=== PATIENT | female | born 1995 | race Caucasian/White ===

== ENCOUNTER 2020-08-29 08:32 | Emergency (ER) | payer OTHER, SELFPAY ==
--- NOTE | 2020-08-29 08:47 | CT_ITS ---
EXAMINATION: CT HEAD WITHOUT CONTRAST CLINICAL INFORMATION: Syncope. Head injury. COMPARISON: None TECHNIQUE: Contiguous axial imaging was performed from the skull base to vertex without intravenous administration of contrast. This CT examination was performed using dose optimization techniques as appropriate, variously including the following: *Automated exposure control *Adjustment of mA and/or kV according to patient size (this includes techniques or standardized protocols for targeted exams where dose is matched to indication/reason for exam; i.e. extremities or head) *Use of iterative reconstruction technique DLP: 605 mGy-cm FINDINGS: There is no evidence of acute intracranial hemorrhage or territorial infarction. No abnormal mass effect or midline shift is seen. Rodríguez to white matter differentiation is well preserved. No extra-axial fluid collections are identified. The ventricles are normal in size. There is no abnormal attenuation within the brain parenchyma. The osseous structures and soft tissues are normal. The mastoid air cells and visualized portions of the paranasal sinuses are well aerated. IMPRESSION: No acute intracranial pathology.
--- NOTE | 2020-08-29 08:47 | XR_ITS ---
EXAMINATION: XR LUMBOSACRAL SPINE CLINICAL INFORMATION: Pain COMPARISON: None TECHNIQUE: Three views of the lumbosacral spine. FINDINGS: Normal alignment. Vertebral body heights and disc spaces are maintained. No evidence of acute fracture. SI joints intact. No suspicious soft tissue calcification. IMPRESSION: No evidence of acute osseous abnormality.
--- NOTE | 2020-08-29 08:47 | ED.SYNCOPE ---
HPI - Syncope General Chief Complaint: Syncope Stated Complaint: passed out at work,hit head,back pain Time Seen by Provider: 08/29/20 08:47 Source: patient Mode of arrival: ambulatory Limitations: no limitations History of Present Illness HPI narrative: 25 yo lilliana with syncope and prodrome - has had back pain since yesterday (chronic x 1 year) no IVDA, states her back hurts when the weather changes has not had it worked up, patient syncopized while at work and hit head then had n/v, no AC therapy, no family history no CP/SOB MD complaint: loss of consciousness, felt faint and collapsed Onset (ago): minute(s) -: second(s) Prodromal symptoms: vision changes and lightheaded Witnessed: Yes - by Bystander Context: standing up Injuries sustained associated with event: head Current symptoms: headache, nausea and other (vomiting afterwards) Treatments prior to arrival: none Related Data Previous Rx's Medication Instructions Recorded cyclobenzaprine 10 mg PO TID PRN #14 tab 08/29/20 ibuprofen 400 mg PO TID PRN #30 tab 08/29/20 Allergies Allergy/AdvReac Type Severity Reaction Status Date / Time latex [LATEX] Allergy Mild RASH Unverified 08/03/20 16:36 [facility] Allergy Unknown SEIZURES Uncoded 08/03/20 16:36 latex Allergy Unknown Uncoded 06/07/19 00:00 onion Allergy Unknown Uncoded 06/07/19 00:00 [facility] Allergy Unknown Uncoded 06/07/19 00:00 Review of Systems Review of Systems: Constitutional : No Fever, No Chills ENT/Mouth : No Ear Pain, No Hoarseness, No sore throat Eyes: No Eye Pain, No Swelling, No Redness, No Foreign Body Cardiovascular : No Chest Pain, No SOB Respiratory : No Cough, No Dyspnea Gastrointestinal : positive Nausea, positive Vomiting, No Diarrhea, No abdominal Pain Genitourinary : No Dysuria, No Hematuria Musculoskeletal : positive back pain, No Myalgias, No Joint Swelling Skin : No Skin lacerations, No rash Neuro : No Weakness, No Numbness, positive fainting, positive Loss of Consciousness, No Dizziness, positive Headache Psych : No Anxiety/Panic, No Depression Heme/Lymph: no easy bruising, no Lymphadenopathy Endocrine : No Polyuria, No Polydipsia All other systems reviewed and are negative PMFSH Past Medical History Attestation statement: The following information was validated with the patient. Medical History Anemia No known health problems Social History Social History (Updated 08/29/20 @ 09:10 by Kylah Mcdaniel DO) Alcohol intake: unknown Smoking Status: Never smoker Use of substances other than those prescribed or required for medical reasons: Unknown Advance Directives: No Advance Directives Information Provided: Yes Physical Exam Vital Signs: Vital Signs: Vital Signs Temp Pulse Resp Pulse Ox 08/29/20 09:19 18 08/29/20 09:18 99 08/29/20 08:54 98.2 F 100 18 99 Body Mass Index 24.2 Appearance: Alert. Oriented X3. No acute distress. Eyes: Pupils equal, round and reactive to light. ENT: Pharynx normal. small contusion occiput Neck: Normal inspection. Neck supple. no vert ttp CVS: Normal heart rate and rhythm. Pulses normal. Respiratory: No respiratory distress. Breath sounds normal. Abdomen: Soft and nontender. Back: no CVA ttp, has lower lumbar pain bilaterally Skin: Skin warm and dry. Normal skin color. Normal skin turgor. Extremities: No lower extremity edema. No calf ttp Neuro: Oriented X 3. No motor deficit. No sensory deficit. Course Course Course Narrative: CT head, lumbar spine negative, no acute findings, feels much better, stable for DC at this time, will refer to PCP MDM - Syncope MDM Narrative Medical decision making narrative: 35 yo female with no CP/SOB, felt weak and tunnel vision had syncopal event c/o head pain and vomiting afterwards, also c/o back pain x 1 year as well when the weather is bad and she has not had any xrays done, denies GIB or bleeding - no CP/SOB and no OCPs doubt ACS/PE at this time, labs, ortho VS, lumbar film, CT head given pain and vomiting, dispo per findings and workup Lab Data Result diagrams: 08/29/20 09:11 08/29/20 09:11 Labs: Lab Results 08/29/20 08/29/20 08/29/20 Range/Units 09:11 09:11 09:11 WBC 6.9 (4.8-10.8) X10*3/uL RBC 4.48 (4.20-5.50) X10*6/uL Hgb 13.2 (12.0-16.0) g/dl Hct 39.3 (37-47) % MCV 87.7 (80-98) fL MCH 29.5 (27.0-33.0) pg MCHC 33.6 (31.0-35.0) g/dl RDW 11.9 (11.0-16.0) % Plt Count 248 (160-400) X10*3/uL MPV 11.3 (9.4-12.3) fL Immature Gran % (Auto) 0.3 (0.0-0.4) % Neut % (Auto) 67.9 (45-73) % Lymph % (Auto) 21.6 (20-40) % [place] % (Auto) 6.1 (2-11) % Eos % (Auto) 3.7 (0-4) % Baso % (Auto) 0.4 (0-2) % Lymph # (Auto) 1.5 (1.2-4.9) X10*3/uL [place] # (Auto) 0.4 (0.1-1.2) X10*3/uL Eos # (Auto) 0.3 (0.0-0.4) X10*3/uL Baso # (Auto) 0.0 (0.0-0.2) X10*3/uL Abs Immat Gran (auto) 0.02 (0.00-0.03) X10*3/uL Absolute Neuts (auto) 4.7 (2.0-8.3) X10*3/uL Absolute Nucleated RBC 0.000 (0.0-0.012) X10*3/uL Nucleated RBC % (auto) 0.0 (0.0-0.2) /100WBC Hold Blue Top SEE NOTE Sodium (135-145) mmol/L Potassium (3.3-5.1) mmol/l Chloride (96-108) mmol/L Carbon Dioxide (22-29) mmol/L Anion Gap (12-20) BUN (9-16) mg/dL Creatinine (0.5-1.4) mg/dL Estim Creat Clear Calc Estimated GFR Random Glucose (60-115) mg/dL Calcium (8.4-10.2) mg/dL Magnesium (1.6-2.6) mg/dL Total Bilirubin (0.0-1.0) mg/dL Direct Bilirubin (0.0-0.5) mg/dL AST (5-31) U/L ALT (0-31) U/L Alkaline Phosphatase (39-117) U/L Troponin I High Sens (<3.5-17.0) ng/L Total Protein (6.5-8.0) g/dL Albumin (3.5-5.0) g/dL Lipase (8-78) U/L Urine Color YELLOW Urine Appearance CLOUDY Urine pH 5.5 (5.0-8.0) Ur Specific [place] >= 1.030 H (1.005-1.025) Urine Protein NEG (NEG-TRACE) MG/DL Urine Glucose (UA) NEG (NEG) MG/DL Urine Ketones NEG (NEG) MG/DL Urine Blood NEG (NEG) Urine Nitrite NEG (NEG) Ur Leukocyte Esterase 1+ H (NEG) Urine RBC 0 (0) /HPF Urine WBC 1-4 (0-4) /HPF Ur Squamous Epith Cells 3+ /LPF Urine Bacteria 2+ /LPF Urine Test NEGATIVE (NEGATIVE) 08/29/20 08/29/20 Range/Units 09:11 09:11 WBC (4.8-10.8) X10*3/uL RBC (4.20-5.50) X10*6/uL Hgb (12.0-16.0) g/dl Hct (37-47) % MCV (80-98) fL MCH (27.0-33.0) pg MCHC (31.0-35.0) g/dl RDW (11.0-16.0) % Plt Count (160-400) X10*3/uL MPV (9.4-12.3) fL Immature Gran % (Auto) (0.0-0.4) % Neut % (Auto) (45-73) % Lymph % (Auto) (20-40) % [place] % (Auto) (2-11) % Eos % (Auto) (0-4) % Baso % (Auto) (0-2) % Lymph # (Auto) (1.2-4.9) X10*3/uL [place] # (Auto) (0.1-1.2) X10*3/uL Eos # (Auto) (0.0-0.4) X10*3/uL Baso # (Auto) (0.0-0.2) X10*3/uL Abs Immat Gran (auto) (0.00-0.03) X10*3/uL Absolute Neuts (auto) (2.0-8.3) X10*3/uL Absolute Nucleated RBC (0.0-0.012) X10*3/uL Nucleated RBC % (auto) (0.0-0.2) /100WBC Hold Blue Top Sodium 136 (135-145) mmol/L Potassium 3.7 (3.3-5.1) mmol/l Chloride 106 (96-108) mmol/L Carbon Dioxide 21 L (22-29) mmol/L Anion Gap 13 (12-20) BUN 16 (9-16) mg/dL Creatinine 0.65 (0.5-1.4) mg/dL Estim Creat Clear Calc 106.4 Estimated GFR > 60 Random Glucose 96 (60-115) mg/dL Calcium 9.1 (8.4-10.2) mg/dL Magnesium 1.8 (1.6-2.6) mg/dL Total Bilirubin 0.4 (0.0-1.0) mg/dL Direct Bilirubin < 0.2 (0.0-0.5) mg/dL AST 14 (5-31) U/L ALT 11 (0-31) U/L Alkaline Phosphatase 58 (39-117) U/L Troponin I High Sens < 3.5 (<3.5-17.0) ng/L Total Protein 7.2 (6.5-8.0) g/dL Albumin 4.4 (3.5-5.0) g/dL Lipase 20 (8-78) U/L Urine Color Urine Appearance Urine pH (5.0-8.0) Ur Specific [place] (1.005-1.025) Urine Protein (NEG-TRACE) MG/DL Urine Glucose (UA) (NEG) MG/DL Urine Ketones (NEG) MG/DL Urine Blood (NEG) Urine Nitrite (NEG) Ur Leukocyte Esterase (NEG) Urine RBC (0) /HPF Urine WBC (0-4) /HPF Ur Squamous Epith Cells /LPF Urine Bacteria /LPF Urine Test (NEGATIVE) ECG Data Attestation: I personally reviewed and interpreted this ECG as follows: ECG interpretation date: 08/29/20 ECG interpretation time: 09:05 Interpretation: Rate: 92 Rhythm: NSR [place]: normal Normal P waves. Normal CAM. Normal QRS complex. ST T wave : normal qTC: normal prior studies: no acute ischemia The study has been interpreted contemporaneously by me. . Discharge Plan Discharge Clinical Impression: Syncope Qualifiers: Syncope type: unspecified Qualified Code(s): R55 - Syncope and collapse Lumbar strain Qualifiers: Encounter type: initial encounter Qualified Code(s): S39.012A - Strain of muscle, fascia and tendon of lower back, initial encounter Patient Disposition: Home, Self-Care Instructions: Syncope (ED), Acute Low Back Pain (ED) Prescriptions: New cyclobenzaprine 10 mg tablet 10 mg PO TID PRN (Reason: muscle spasm) Qty: 14 RF: 0 ibuprofen 400 mg tablet 400 mg PO TID PRN (Reason: pain) Qty: 30 RF: 0 Referrals: Po,Zuly Sneed MD [Primary Care Provider] - 2 days Stand Alone Forms: Work/School Release
--- NOTE | 2020-08-29 08:53 | ECG_ITS ---
Test Reason : SYNCOPE Blood Pressure : / mmHG Vent. Rate : 092 BPM Atrial Rate : 092 BPM P-R Int : 136 ms QRS Dur : 080 ms QT Int : 354 ms P-R-T Axes : 065 087 024 degrees QTc Int : 437 ms Normal sinus rhythm Nonspecific T wave abnormality Inferior leads Borderline ECG When compared with ECG of 09-JAN-2019 00:58, T wave inversion more evident in Inferior leads Referred By: Kylah Mcdaniel Electronically Signed By:REJI HARRISON MD
[2020-08-29 08:54] VITALS: PULSE 100; RESP 18; TEMP 36.8; O2SAT 99; BMI 24.2
[2020-08-29 09:16] LABS: MANUAL DIFF FLAG NO
[2020-08-29 09:18] VITALS: O2SAT 99
[2020-08-29 09:19] VITALS: RESP 18
[2020-08-29] MEDS: ondansetron HCL 4 MG/2 ML VIAL IVPUSH (09:25)
[2020-08-29] MEDS: Cyclobenzaprine HCl 10 MG TABLET PO (09:25)
[2020-08-29] MEDS: 0.9 % Sodium Chloride 1,000 ML 999 ML IVCONT (09:25)
[2020-08-29 09:26] LABS: Basophils Percent Auto 0.4 % (0-2); Eosinophils Absolute Auto 0.3 X10*3/uL (0.0-0.4); Eosinophils Percent Auto 3.7 % (0-4); Glucose Urine UA NEG (NEG); Hematocrit 39.3 % (37-47); Hemoglobin 13.2 g/dl (12.0-16.0); Imm Gran Abs Auto 0.02 X10*3/uL (0.00-0.03); Imm Gran Pct Auto 0.3 % (0.0-0.4); Leukocyte Esterase Urine 1+ (NEG); Lymphocytes Absolute Auto 1.5 X10*3/uL (1.2-4.9); Lymphocytes Percent Auto 21.6 % (20-40); Mean Corpuscular HGB Conc 33.6 g/dl (31.0-35.0); Mean Corpuscular Hemoglobin 29.5 pg (27.0-33.0); Mean Corpuscular Volume 87.7 fL (80-98); Mean Platelet Volume 11.3 fL (9.4-12.3); Monocytes Absolute Auto 0.4 X10*3/uL (0.1-1.2); Monocytes Percent Auto 6.1 % (2-11); Neutrophils Absolute Auto 4.7 X10*3/uL (2.0-8.3); Neutrophils Percent Auto 67.9 % (45-73); Nitrite Urine NEG (NEG); PH 5.5 (5.0-8.0); Platelet Count 248 X10*3/uL (160-400); Red Blood Count 4.48 X10*6/uL (4.20-5.50); Red Cell Distribution Width 11.9 % (11.0-16.0); Specific Gravity - Urine >= 1.030 (1.005-1.025); Urine Blood NEG (NEG); Urine Ketones NEG (NEG); Urine Protein NEG (NEG-TRACE); White Blood Count 6.9 X10*3/uL (4.8-10.8)
[2020-08-29 09:28] LABS: Appearance Urine CLOUDY; Color Urine YELLOW
[2020-08-29 09:36] LABS: RBC Urine 0 /HPF (0); Squamous Epithelial Cell Urine 3+ /LPF
[2020-08-29 09:37] LABS: Bacteria Urine 2+ /LPF
[2020-08-29 09:39] LABS: UPreg QC Valid YES; Urine Pregnancy NEGATIVE (NEGATIVE)
[2020-08-29 09:41] LABS: Alanine Aminotransferase 11 U/L (0-31); Albumin Level 4.4 g/dL (3.5-5.0); Alkaline Phosphatase 58 U/L (39-117); Anion Gap 13 (12-20); Aspartate Amino Transferase 14 U/L (5-31); Bilirubin Direct < 0.2 mg/dL (0.0-0.5); Bilirubin Total 0.4 mg/dL (0.0-1.0); Blood Urea Nitrogen 16 mg/dL (9-16); Calcium 9.1 mg/dL (8.4-10.2); Carbon Dioxide 21 mmol/L (22-29); Chloride 106 mmol/L (96-108); Creatinine Clr Calc Pharmacy 106.4; Estimated Glomerular Filt Rate > 60; Glucose Random 96 mg/dL (60-115); Lipase 20 U/L (8-78); Magnesium 1.8 mg/dL (1.6-2.6); Potassium 3.7 mmol/l (3.3-5.1); Sodium 136 mmol/L (135-145); Total Protein 7.2 g/dL (6.5-8.0)
[2020-08-29 09:47] LABS: Troponin-I High Sensitivity < 3.5 ng/L (<3.5-17.0)
[2020-08-29] MEDS: oxyCODONE HCl Immed Release 5 MG TABLET PO (10:13)
[2020-08-29 11:13] VITALS: BP 103/59; PULSE 85
[2020-08-29 11:14] VITALS: BP 107/64; BP 116/74; PULSE 102; PULSE 81
== END 2020-08-29 12:23 | disposition home or self-care (01) ==
PROVIDERS: Emergency Provider Emergency Medicine; PCP Internal Medicine
DX: R55 Syncope and collapse (principal); S39.012A Strain of muscle, fascia and tendon of lower back, initial encounter; W19.XXXA Unspecified fall, initial encounter; Y93.9 Activity, unspecified; Y92.9 Unspecified place or not applicable; Y99.0 Civilian activity done for income or pay
CPT/HCPCS: 36415; 70450; 72100; 80048; 80076; 81001; 81025; 83690; 83735; 84484; 85025; 87086; 93005; 96361; 96374; 99284; 99285; J2405

== ENCOUNTER 2020-10-27 11:27 | Outpatient (REF) | payer OTHER, SELFPAY ==
[2020-10-27 13:01] LABS: MANUAL DIFF FLAG NO
[2020-10-27 13:29] LABS: Glucose Urine UA NEG (NEG); Leukocyte Esterase Urine NEG (NEG); Nitrite Urine NEG (NEG); Urine Blood NEG (NEG); Urine Ketones NEG (NEG); Urine Protein NEG (NEG-TRACE)
[2020-10-27 13:36] LABS: Basophils Absolute Auto 0.1 X10*3/uL (0.0-0.2); Basophils Percent Auto 0.7 % (0-2); Eosinophils Absolute Auto 0.3 X10*3/uL (0.0-0.4); Hematocrit 40.3 % (37-47); Hemoglobin 13.3 g/dl (12.0-16.0); Imm Gran Abs Auto 0.03 X10*3/uL (0.00-0.03); Imm Gran Pct Auto 0.4 % (0.0-0.4); Immature Retic Fraction 14.2 % (3.0-15.9); Lymphocytes Absolute Auto 2.1 X10*3/uL (1.2-4.9); Lymphocytes Percent Auto 31.6 % (20-40); Mean Corpuscular Hemoglobin 29.2 pg (27.0-33.0); Mean Corpuscular Volume 88.6 fL (80-98); Mean Platelet Volume 11.2 fL (9.4-12.3); Monocytes Absolute Auto 0.4 X10*3/uL (0.1-1.2); Monocytes Percent Auto 6.2 % (2-11); Neutrophils Absolute Auto 3.9 X10*3/uL (2.0-8.3); Neutrophils Percent Auto 57.1 % (45-73); Platelet Count 294 X10*3/uL (160-400); Red Blood Count 4.55 X10*6/uL (4.20-5.50); Red Cell Distribution Width 12.2 % (11.0-16.0); Retic HGB Equivalent 30.7 pg (30.0-35.0); Reticulocyte Percent 1.5 % (0.5-1.8); Reticulocytes Absolute 0.067 X10*6/uL (0.026-0.095); White Blood Count 6.8 X10*3/uL (4.8-10.8)
[2020-10-27 13:37] LABS: Appearance Urine CLEAR; Color Urine YELLOW
[2020-10-27 13:37] LABS: Alanine Aminotransferase 11 U/L (0-31); Albumin Level 4.4 g/dL (3.5-5.0); Alkaline Phosphatase 58 U/L (39-117); Anion Gap 13 (12-20); Aspartate Amino Transferase 13 U/L (5-31); Bilirubin Total 0.4 mg/dL (0.0-1.0); Blood Urea Nitrogen 13 mg/dL (9-16); Calcium 8.7 mg/dL (8.4-10.2); Carbon Dioxide 24 mmol/L (22-29); Chloride 104 mmol/L (96-108); Estimated Glomerular Filt Rate > 60; Glucose Random 80 mg/dL (60-115); Iron 103 mcg/dL (30-160); Percent Iron Saturation 23 % (15-50); Potassium 3.8 mmol/l (3.3-5.1); Sodium 137 mmol/L (135-145); Total Iron Binding Capacity 453 mcg/dL (228-428); Total Protein 7.2 g/dL (6.5-8.0); Unsaturated Iron Binding 350 ug/dL
[2020-10-27 13:48] LABS: Ferritin 6 ng/mL (10-122); Free T4 (Free Thyroxine) 0.91 ng/dL (0.71-1.85); Thyroid Stimulating Hormone 1.22 uIU/mL (0.32-4.0)
[2020-10-27 14:01] LABS: Folate 11.2 ng/mL (> or = 4.0); Vitamin B12 390 pg/mL (200-900)
[2020-10-27 14:27] LABS: Bacteria Urine TRACE /LPF; RBC Urine 0 /HPF (0); Squamous Epithelial Cell Urine TRACE /LPF; WBC Urine 0 /HPF (0-4)
== END 2020-10-27 11:28 | disposition home or self-care (01) ==
LOC: HO.LAB 11:27
PROVIDERS: PCP Internal Medicine; Referring Provider Nurse Practitioner Family; Visit Provider Internal Medicine
DX: D64.9 Anemia, unspecified (principal); R55 Syncope and collapse
CPT/HCPCS: 36415; 80053; 81001; 82607; 82728; 82746; 83540; 84439; 84443; 85025; 85045

== ENCOUNTER 2020-11-27 11:11 | Outpatient (REF) | payer OTHER, SELFPAY | END 2020-11-27 11:12 | disposition home or self-care (01) | LOC: HO.LAB 11:11 | PROVIDERS: Visit Provider Internal Medicine | DX: Z20.822 Contact with and (suspected) exposure to COVID-19 (principal) | CPT/HCPCS: 36415; C9803; U0003 ==

== ENCOUNTER 2021-06-17 12:02 | Emergency (ER) | payer OTHER, MEDICAID, SELFPAY ==
[2021-06-17 12:23] VITALS: BP 136/79; PULSE 91; RESP 15; TEMP 36.1; O2SAT 99; BMI 23.3
--- NOTE | 2021-06-17 13:27 | ED.EAR ---
HPI - Ear Problem General Chief complaint: Ear Problems Stated complaint: ear infection Time Seen by Provider: 06/17/21 13:09 Source: patient Mode of arrival: ambulatory Limitations: no limitations History of Present Illness HPI Narrative: Patient presents to ED for right ear pain for 3 days after cleaning ear with ear swab. Patient denies any pus discharge or bleeding from the ear. Patient was seen yesterday at urgent care that right ear irrigated. Patient states pain is worse. Related Data Previous Rx's Medication Instructions Recorded citalopram 10 mg tablet 15 mg PO DAILY 90 Days #135 tab 05/01/21 ibuprofen 600 mg tablet 600 mg PO TID PRN #60 tab 05/01/21 naproxen 500 mg tablet 500 mg PO BID PRN #20 tab 06/17/21 [id number] 3.3 4 drp OTIC (EAR) LEFT QID 7 Days 06/17/21 mg-3 mg-10 mg-0.5 mg/mL ear #10 ml drops,susp (Cortisporin-TC) Allergies Allergy/AdvReac Type Severity Reaction Status Date / Time latex [LATEX] Allergy Mild RASH Verified 05/01/21 16:21 [facility] Allergy Unknown SEIZURES Uncoded 10/02/20 11:08 latex Allergy Unknown d Uncoded 10/02/20 11:08 onion Allergy Unknown f Uncoded 10/02/20 11:08 [facility] Allergy Unknown p Uncoded 10/02/20 11:08 Review of Systems Review of Systems: Yes unobtainable due to endotracheal tube and Unobtainable due to mental status Constitutional: Constitutional: Reports as per HPI and Reports no additional constitutional complaints Eyes: Eyes: Reports as per HPI and Reports no additional eye complaints ENT: Reports system reviewed and no additional complaints, except as documented and Reports otalgia Cardiovascular: Cardiovascular: Reports as per HPI and Reports no additional cardiovascular complaints Respiratory: Respiratory: Reports as per HPI and Reports no additional respiratory complaints Gastrointestinal: Gastrointestinal: Reports as per HPI and Reports no additional gastrointestinal complaints Genitourinary: Genitourinary: Reports no additional female genitourinary complaints and Reports as per HPI Musculoskeletal: Musculoskeletal: Reports no additional musculoskeletal complaints and Reports as per HPI Integumentary/Breasts: Skin/Breast: Reports system reviewed and no additional complaints, except as docu and Reports as per HPI Neurologic: Reports system reviewed and no additional complaints, except as documented and Reports as per HPI Psychiatric: Psychiatric: Reports no additional psychiatric complaints and Reports as per HPI [facility] Past Medical History Medical History (Updated 06/17/21 @ 13:34 by LYLY Lorenzana) Anemia Anxiety Lumbar back pain Tourettes syndrome Surgical History No pertinent past surgical history Family History Family History (Updated 09/28/20 @ 07:22 by LAISHA Moody) Father No problems noted. Mother No problems noted. Social History Social History (Updated 05/01/21 @ 16:24 by [employer]) Household Members: Family Housing: House Alcohol intake: never Patient Tobacco Use Status: Never used Tobacco Advance Directives: No Advance Directives Information Provided: Yes Patient : No service: No Current occupational status: employed Physical Exam Vital Signs: Vital Signs: Last Vital Signs Temp 97.0 F 06/17/21 12:23 Pulse 91 06/17/21 12:23 Resp 15 06/17/21 12:23 BP 136/79 06/17/21 12:23 Pulse Ox 99 06/17/21 12:23 Body Mass Index 23.3 Const: General: cooperative, healthy appearing, comfortable, no acute distress, well developed, alert, awake and Physically active HENMT: Head: Yes normal to inspection, Yes No palpable skull fracture present, Yes normocephalic and Yes atraumatic Ears: hearing grossly normal bilaterally, external ears normal, mastoids normal, no periauricular adenopathy, Abnormal EAC present (Ear canal swollen) and unable to visualize TM Eyes: General: appearance normal, both eyes and all related structures Neck: Neck: Yes normal visual inspection, Yes full ROM, Yes no lymphadenopathy and Yes no meningeal signs Chest: Chest palpation & inspection: normal inspection of the chest and normal palpation of entire chest wall Resp: Effort & Inspection: normal respiratory effort and able to speak in complete sentences Auscultation: clear to auscultation bilaterally Cardio: Jugular venous distension: no JVD Heart sounds: S1 normal heart sound present and S2 normal heart sound present GI: Inspection: Yes normal to inspection and No abdominal wall ecchymosis Palpation (GI): Soft to palpation, not firm, nontender, no guarding and not rigid : General: No CVA tenderness and Yes no CVA tenderness Back/Spine/Pelvis: Back: no CVA tenderness, No CVA tenderness and No back tenderness Skin: General skin exam: no rashes or lesions noted and elasticity normal Neuro: General: no meningeal signs Extrem: General: Yes normal to inspection and Yes full ROM Course Course Course Narrative: Ear evaluated. Reevaluation(s) Reevaluation #1: Ear exam shows otitis externa. Will discharge with ear drops. Time: 13:32 MDM - Ear MDM Narrative Medical decision making narrative: Otitis externa Discharge Plan Discharge Clinical Impression: Otitis externa Patient Disposition: Home, Self-Care Instructions: Otitis Externa (ED) Additional Instructions: Ear exam shows otitis externa. He will need ear drops with antibiotics. Return to the ED for worsening ear pain, swelling or redness behind on front of ear, headache, dizziness, discharge from the ear, chest pain, shortness of breath, fever, chills, or any other concerning symptoms. Prescriptions: New Cortisporin-TC 3.3-3-10-0.5 mg/mL drops,suspension 4 drp otic (ear) left QID 7 Days Qty: 10 RF: 0 naproxen 500 mg tablet 500 mg PO BID PRN (Reason: pain) Qty: 20 RF: 0 No Action ibuprofen 600 mg tablet 600 mg PO TID PRN (Reason: pain) Qty: 60 RF: 0 citalopram 10 mg tablet 15 mg PO DAILY 90 Days Qty: 135 RF: 0 Referrals: Beny Charlton [Physician] - 2 days (Otitis externa) Po,Zuly Sneed MD [Primary Care Provider] - 2 days (Otitis externa) Interventions: ED Discharge Assessment Last Done: 06/17/21 13:43 Discharge Date/Time: 06/17/21 13:44 Print Language: Tanzanian
== END 2021-06-17 13:44 | disposition home or self-care (01) ==
PROVIDERS: Emergency Provider Student in an Organized Health Care Education/Training Program; PCP Internal Medicine
DX: H60.91 Unspecified otitis externa, right ear (principal); H92.01 Otalgia, right ear; Z79.899 Other long term (current) drug therapy
CPT/HCPCS: 99283

== ENCOUNTER 2021-08-13 12:23 | Emergency (ER) | payer OTHER, MEDICAID, SELFPAY ==
--- NOTE | 2021-08-13 14:25 | ED.URI ---
HPI - URI/Sore Throat General Chief Complaint: Upper Respiratory Symptoms Stated Complaint: flu like Time Seen by Provider: 08/13/21 14:26 Source: patient Mode of arrival: ambulatory Limitations: no limitations History of Present Illness HPI Narrative: 26 yo female pmhx of anxiety presents and recurrent ear infections as a child presents to the ED with sore throat, left ear pain, body aches and malaise for one week. She states it has been progresivly worsening over the past week. She does report an URi with ottitis externa about 2 weeks ago. She is not vaccinated against covid 19. She denies SOB, CP, fevers, chills,N/V/D, absominal pain. She is able to eat and drink without difficulty. She is not a smoker MD elicited complaint: sore throat and other (left ear pain ) Pertinent past history: other (recurrent ear infections as a child ) Onset (ago): week(s) (1) Consistency: constant Severity: moderate Able to tolerate fluids by mouth: Yes Exacerbating factors: nothing Relieving factors: nothing Associated symptoms: myalgias, sore throat and cough Treatments prior to arrival: none Related Data Previous Rx's Medication Instructions Recorded ibuprofen 600 mg tablet 600 mg PO TID PRN #60 tab 05/01/21 naproxen 500 mg tablet 500 mg PO BID PRN #20 tab 06/17/21 [id number] 3.3 4 drp OTIC (EAR) LEFT QID 7 Days 06/17/21 mg-3 mg-10 mg-0.5 mg/mL ear #10 ml drops,susp (Cortisporin-TC) citalopram 10 mg tablet 15 mg PO DAILY 90 Days #135 tab 07/16/21 ofloxacin 0.3 % ear drops 10 drp OTIC (EAR) LEFT DAILY 7 08/13/21 Days #10 ml Allergies Allergy/AdvReac Type Severity Reaction Status Date / Time latex [LATEX] Allergy Mild RASH Verified 05/01/21 16:21 [facility] Allergy Unknown SEIZURES Uncoded 10/02/20 11:08 latex Allergy Unknown d Uncoded 10/02/20 11:08 onion Allergy Unknown f Uncoded 10/02/20 11:08 [facility] [employer] [facility] Allergy Unknown p Uncoded 11/16/20 11:08 Review of Systems Review of Systems: Constitutional : No Fever, No Chills, + malaise ENT/Mouth : No oral swelling, No Hoarseness, No Swallowing Difficulty, + left sided ear pain, + sore throat Eyes: No Eye Pain, No Swelling, No Redness Cardiovascular : No Chest Pain, No SOB Respiratory : No Cough, No Sputum, No Wheezing, No Smoke Exposure, No Dyspnea Gastrointestinal : No Nausea, No Vomiting, No Diarrhea, No abdominal Pain Genitourinary : No Dysuria, No Urinary Frequency, No Hematuria Musculoskeletal : No joint pain, No Myalgias, No Joint Swelling Skin : No Skin Lesions, positive rash Neuro : No Weakness, No Numbness, No Headache All other systems reviewed and are negative [facility] Past Medical History Attestation statement: The following information was validated with the patient. Source: old records reviewed Medical History Anemia Anxiety Lumbar back pain Tourettes syndrome Surgical History No pertinent past surgical history Family History Family History (Updated 09/28/20 @ 07:22 by Анна Rosenthal [facility]) Father No problems noted. Mother No problems noted. Social History Social History Household Members: Family Housing: House Alcohol intake: never Patient Tobacco Use Status: Never used Tobacco Advance Directives: No Advance Directives Information Provided: No Patient : No service: No Current occupational status: employed Physical Exam Vital Signs: Vital Signs: Last Vital Signs Temp 97.5 F 08/13/21 14:28 Pulse 85 08/13/21 14:28 Resp 16 08/13/21 14:28 BP 122/67 08/13/21 14:28 Pulse Ox 100 08/13/21 14:28 Body Mass Index 23.3 Appearance: Alert. Oriented X3. No acute distress. Eyes: Pupils equal, round and reactive to light. ENT: Pharynx normal. Bilateral ear canals free of erythema. Tympanic membranes with bright cone of light, all landmarks present. Old scarring is noted to the left ear drum Neck: Normal inspection. Neck supple. CVS: Normal heart rate and rhythm. Pulses normal. Respiratory: No respiratory distress. Breath sounds normal. Abdomen: Soft and nontender. Skin: Skin warm and dry. Normal skin color. Normal skin turgor. Extremities: No lower extremity edema. No calf ttp Neuro: Oriented X 3. No motor deficit. No sensory deficit. MDM - URI/Sore Throat MDM Narrative Medical decision making narrative: 26-year-old female presenting with sore throat, left-sided ear pain, body aches and malaise for 1 week that progressively worsening. She reports an URI and ottitis externa in the right ear a few weeks ago. She is not vaccinated. She denies fevers, chills, shortness of breath, chest pain, abdominal pain Lab Data Labs: Lab Results 08/13/21 Range/Units 14:39 COVID-19 ([facility]ARON) Positive A (Negative) COVID-19 Clin Com See Note Discharge Plan Discharge Clinical Impression: Acute sore throat, Ear pain, left, COVID-19 Patient Disposition: Home, Self-Care Instructions: Earache (ED), COVID-19 (Coronavirus Disease 2019) (ED) Additional Instructions: Ear drops were sent to your pharmacy, taken as prescribed You tested for COVID 19 today Follow-up with your PCP. Return to the emergency department with new or worsening symptoms return to ED for any worsening symptoms or concerns if you are so short of breath you cannot walk to your bathroom please come back YOU ARE POSITIVE FOR COVID TODAY Prescriptions: New ofloxacin 0.3 % drops 10 drp otic (ear) left DAILY 7 Days Qty: 10 RF: 0 No Action citalopram 10 mg tablet 15 mg PO DAILY 90 Days Qty: 135 RF: 2 Cortisporin-TC 3.3-3-10-0.5 mg/mL drops,suspension 4 drp otic (ear) left QID 7 Days Qty: 10 RF: 0 naproxen 500 mg tablet 500 mg PO BID PRN (Reason: pain) Qty: 20 RF: 0 ibuprofen 600 mg tablet 600 mg PO TID PRN (Reason: pain) Qty: 60 RF: 0 Referrals: Po,Zuly Sneed MD [Primary Care Provider] - 2 days Stand Alone Forms: Work/School Release
[2021-08-13 14:28] VITALS: BP 122/67; PULSE 85; RESP 16; TEMP 36.4; O2SAT 100; BMI 23.3
[2021-08-13 14:59] LABS: COVID-19 Test Positive (Negative); IDNOW Serial# 9DD0AD1C
== END 2021-08-13 15:23 | disposition home or self-care (01) ==
LOC: HO.ED 14:59
PROVIDERS: Emergency Provider Emergency Medicine; PCP Internal Medicine
DX: U07.1 COVID-19 (principal); H92.02 Otalgia, left ear; M79.10 Myalgia, unspecified site; R05 Cough
CPT/HCPCS: 36415; 87635; 99282; 99283

== ENCOUNTER 2021-08-28 11:57 | Emergency (ER) | payer OTHER, MEDICAID, SELFPAY ==
--- NOTE | ~2021-08-28 | CT_ITS ---
EXAMINATION: CT ABDOMEN AND PELVIS WITHOUT CONTRAST CLINICAL INFORMATION: Lower abdominal pain COMPARISON: None TECHNIQUE: Multidetector volumetric imaging was performed from the superior aspect of the liver through the pubic symphysis. Sagittal and coronal reformatted images were obtained on the technologist's workstation. This CT examination was performed using dose optimization techniques as appropriate, variously including the following: *Automated exposure control *Adjustment of mA and/or kV according to patient size (this includes techniques or standardized protocols for targeted exams where dose is matched to indication/reason for exam; i.e. extremities or head) *Use of iterative reconstruction technique DLP: 395 mGy-cm FINDINGS: LUNG BASES: The visualized lung bases are unremarkable. There is a small hiatal hernia. LIVER, GALLBLADDER, AND BILIARY TREE: The liver is normal in size, shape, and attenuation. No focal hepatic lesion or biliary ductal dilatation is present. The gallbladder is unremarkable with no evidence of radiopaque gallstones, gallbladder wall thickening, or obvious pericholecystic inflammatory changes. PANCREAS: Unremarkable. SPLEEN: Unremarkable. ADRENAL GLANDS: Unremarkable. KIDNEYS AND URETERS: The kidneys are normal in size, shape, and attenuation. No hydronephrosis, hydroureter, or calculi seen. No perinephric stranding. BLADDER: Unremarkable. GASTROINTESTINAL TRACT: There is scattered stool seen throughout the colon without any significant distention. The small bowel loops are normal caliber. Appendix is normal caliber. No inflammatory process seen in the abdomen. ABDOMINAL WALL: A small lumbar canal hernia containing fat is noted. LYMPH NODES: Normal. VASCULAR: Unremarkable. PELVIC VISCERA: The uterus is retroverted. There is no adnexal mass or free fluid. OSSEOUS STRUCTURES: Unremarkable. CT/CT abdomen pelvis wo con IMPRESSION: No acute intra-abdominal process seen. Retroverted uterus. No adnexal mass or free fluid seen.
--- NOTE | ~2021-08-28 | US_ITS ---
EXAMINATION: US PELVIS CLINICAL INFORMATION: Suprapubic lower quadrant pain for approximately one week, worse with urination. COMPARISON: Pelvic ultrasound 10/05/2019, 09/08/2019 TECHNIQUE: Ultrasound of the pelvis is performed using both transabdominal and transvaginal transducers along with color and spectral Doppler. Transvaginal imaging is performed due to inadequate visualization transabdominally. FINDINGS: Uterus: The uterus is retroverted and measures 7.9 x 4.9 x 5.5 cm. Volume 91 mL. The double wall endometrial thickness is within limits of normal at 14 mm. There is trace fluid in the endocervical canal. No fluid in the uterine cavity. There is an arcuate endometrial cavity shape as noted previously. No fundal indentation. The uterus is smooth in contour and has normal myometrial echogenicity. No visible fibroid. Adnexa: Both ovaries are visualized. There is normal color flow to the adnexa and normal bilateral low resistance waveforms. There is no ovarian torsion. There is no pelvic ascites or fluid collection. Right ovary measures 2.6 x 2.1 x 2.4 cm. Volume 6.7 mL. No right adnexal mass. Left ovary measures 4.6 x 2.1 x 2.6 cm. Volume 13.2 mL. There is a dominant anterior ovarian follicle measuring 2.4 x 1.8 x 2.0 cm. No left adnexal mass. US/US pelvic ovarian doppler IMPRESSION: 1. No ovarian torsion, adnexal mass, or pelvic ascites 2. Retroverted uterus normal in size.
--- NOTE | ~2021-08-28 | US_ITS ---
EXAMINATION: US PELVIS CLINICAL INFORMATION: Suprapubic lower quadrant pain for approximately one week, worse with urination. COMPARISON: Pelvic ultrasound 10/05/2019, 09/08/2019 TECHNIQUE: Ultrasound of the pelvis is performed using both transabdominal and transvaginal transducers along with color and spectral Doppler. Transvaginal imaging is performed due to inadequate visualization transabdominally. FINDINGS: Uterus: The uterus is retroverted and measures 7.9 x 4.9 x 5.5 cm. Volume 91 mL. The double wall endometrial thickness is within limits of normal at 14 mm. There is trace fluid in the endocervical canal. No fluid in the uterine cavity. There is an arcuate endometrial cavity shape as noted previously. No fundal indentation. The uterus is smooth in contour and has normal myometrial echogenicity. No visible fibroid. Adnexa: Both ovaries are visualized. There is normal color flow to the adnexa and normal bilateral low resistance waveforms. There is no ovarian torsion. There is no pelvic ascites or fluid collection. Right ovary measures 2.6 x 2.1 x 2.4 cm. Volume 6.7 mL. No right adnexal mass. Left ovary measures 4.6 x 2.1 x 2.6 cm. Volume 13.2 mL. There is a dominant anterior ovarian follicle measuring 2.4 x 1.8 x 2.0 cm. No left adnexal mass. US/US pelvic and transvaginal IMPRESSION: 1. No ovarian torsion, adnexal mass, or pelvic ascites 2. Retroverted uterus normal in size.
[2021-08-28 12:59] VITALS: BP 109/70; PULSE 88; RESP 17; TEMP 36.7; O2SAT 100; BMI 32.5
[2021-08-28 14:09] LABS: Appearance Urine CLEAR; Color Urine YELLOW; Glucose Urine UA NEG (NEG); Leukocyte Esterase Urine NEG (NEG); Nitrite Urine NEG (NEG); PH 7.5 (5.0-8.0); Urine Blood NEG (NEG); Urine Ketones NEG (NEG); Urine Protein NEG (NEG-TRACE)
[2021-08-28 14:35] LABS: UPreg QC Valid YES; Urine Pregnancy NEGATIVE (NEGATIVE)
--- NOTE | 2021-08-28 16:35 | ED.ABDPAIN ---
HPI - Abdominal Pain General Chief Complaint: General Medical Stated Complaint: covid+ ?uti Time Seen by Provider: 08/28/21 14:13 Source: patient Mode of arrival: ambulatory Limitations: no limitations History of Present Illness HPI narrative: 26-year-old female with a past medical history of Tourette syndrome, anxiety, anemia and who was recently diagnosed with COVID 19 on 08/13/2021 presenting to the ED with complaints of pressure sensation in the bladder aspect and she believes she might have a UTI. She reports that she has similar symptoms approximately 1-2 years ago and she was diagnosed with UTI and given antibiotics and her symptoms resolved. She denies any thoughts of STDs. She also reports that she still has generalized fatigue, intermittent headaches, nasal congestion, sore throat, dry cough and no taste and she does not believe that she can go back to work due to she is still feeling bad from her COVID. She denies any measured fevers, dizziness, neck pain/stiffness, trouble swallowing or breathing, chest pain or shortness of breath, dyspnea on exertion, orthopnea, radiation of the abdominal pain, nausea/vomiting/diarrhea, dysuria, hematuria, abnormal vaginal discharge, constipation, rashes, recent travel or any other symptoms complaints or concerns at this time. MD elicited complaint: abdominal pain Pertinent past history: past UTI Onset (ago): day(s) (For the past few days worse today) Pain Consistency: constant Location: suprapubic Severity: mild Quality: aching Radiation: none Migration to: no migration Exacerbating factors: other (Urinating) Relieving factors: nothing Associated symptoms: other (See above) Related Data Previous Rx's Medication Instructions Recorded ibuprofen 600 mg tablet 600 mg PO TID PRN #60 tab 05/01/21 naproxen 500 mg tablet 500 mg PO BID PRN #20 tab 06/17/21 [id number] 3.3 4 drp OTIC (EAR) LEFT QID 7 Days 06/17/21 mg-3 mg-10 mg-0.5 mg/mL ear #10 ml drops,susp (Cortisporin-TC) citalopram 10 mg tablet 15 mg PO DAILY 90 Days #135 tab 07/16/21 ofloxacin 0.3 % ear drops 10 drp OTIC (EAR) LEFT DAILY 7 08/13/21 Days #10 ml amoxicillin 875 mg-potassium 1 tab PO BID 10 Days #20 tab 08/28/21 clavulanate 125 mg tablet (Augmentin) cyclobenzaprine 10 mg tablet 10 mg PO Q8H PRN #14 tab 08/28/21 ofloxacin 0.3 % ear drops 10 drp OTIC (EARS) BID 14 Days #10 08/28/21 ml Allergies Allergy/AdvReac Type Severity Reaction Status Date / Time latex [LATEX] Allergy Mild RASH Verified [facility]/01[facility]21 16:[facility]ergy Unknown SEIZURES Uncoded 10/02/20 11:08 latex Allergy Unknown d Uncoded 10/02/20 11:08 onion Allergy Unknown f Uncoded 10/02/20 11:08 [employer] [facility] Allergy Unknown p Uncoded 10/02/20 11:08 Review of Systems Review of Systems Constitutional : Positive no taste, Positive fatigue/malaise, No Weight loss, No Fever, No Chills, No Night Sweats ENT/Mouth: Positive sore throat, No ear pain, No Difficulty swallowing Cardiovascular : No Chest Pain, No SOB, No Dyspnea on Exertion, No Orthopnea, NoEdema, No Palpitations Respiratory : Positive Cough, No Sputum, No Wheezing, No Dyspnea Gastrointestinal : Positive lower abdominal pressure, No Nausea, No Vomiting, No abdominal pain, No Diarrhea, No blood streaked emesis, No coffee-ground emesis, No gross hematemesis, No blood streak stool, No gross hematochezia, No Melena Genitourinary : No irregular bleeding, No Dysuria, No Urinary Frequency, No Hematuria,No Urinary Incontinence, No Urgency, No Flank Pain Musculoskeletal : Positive myalgias, No joint pain, No Joint Swelling Skin : No Skin Lesions, No rash Neuro : Positive headache, No Weakness, No Numbness, No Paresthesias, No Loss of Consciousness, No Dizziness Psych : No Social Issues, Heme/Lymph: No Bruising, No Bleeding,No Lymphadenopathy Endocrine : No Polyuria, No Polydipsia, No Temperature Intolerance Yes all other systems are reviewed and are negative Physical Exam Vital Signs: Vital Signs: Last Vital Signs Temp 98.1 F 08/28/21 12:59 Pulse 88 08/28/21 12:59 Resp 17 08/28/21 12:59 BP 109/70 08/28/21 12:59 Pulse Ox 100 08/28/21 12:59 Body Mass Index 32.5 vital signs have been reviewed as normal and appeared to be correct. Blood pressure normal. Heart rate normal. Respiration rate normal. Temperature normal. Oxygen saturation normal. Appearance: Alert. Oriented X3. No acute distress. Head: Normal external exam. Normocephalic. Eyes: PERRLA. EOMI. Conjunctiva and sclera normal. Eyelids normal. ENT: Pharynx normal. Uvula midline. Moist mucous membranes. No trismus noted. No drooling noted. No muffled voice noted. Neck: Normal inspection. Neck supple. FROM. No adenopathy. No meningeal signs. CVS: Normal heart rate and rhythm. Heart sound normal. No murmurs noted. Pulses normal throughout. Respiratory: No respiratory distress. Painless inspiration. Breath sounds normal. No wheezes/rales/rhonchi noted. Chest nontender. No accessory muscle usage noted or decreased air movement noted. Abdomen: Soft and mild suprapubic tenderness. Nondistended. No guarding. No rigidity. Bowel sounds normal in all 4 quadrants. No distention noted. No organomegaly noted. No visible injury noted. No rebound tenderness. Negative Rovsing sign. Negative obturator's sign. Negative psoas sign. Negative Sims sign. Back: No CVA tenderness. Full range of motion noted. Skin: Skin warm and dry. Normal skin color. Normal skin turgor. No rashes/lesions/lacerations noted. Extremities: Extremities exhibit normal range of motion. Extremities nontender. Neuro: Oriented X 3. No motor deficit. No sensory deficit. Reflexes normal. Normal steady gait. Course Course Course Narrative: 14:30 - 26-year-old female with a past medical history of Tourette syndrome, anxiety, anemia and who was recently diagnosed with COVID 19 on 08/13/2021 presenting to the ED with complaints of pressure sensation in the bladder aspect and she believes she might have a UTI. She reports that she has similar symptoms approximately 1-2 years ago and she was diagnosed with UTI and given antibiotics and her symptoms resolved. She denies any thoughts of STDs. She also reports that she still has generalized fatigue, intermittent headaches, nasal congestion, sore throat, dry cough and no taste and she does not believe that she can go back to work due to she is still feeling bad from her COVID. Plan: UA obtained in triage and negative for UTI. U hCG negative for . Therefore at this time will order an ultrasound of pelvic/ovarian/transvaginal then re-evaluate. Reevaluation(s) Reevaluation #1: - pelvic ultrasound negative for any acute processes only revealed chronic changes. - therefore I explained to the patient we should have a gonorrhea chlamydia urine to rule out STD. - will also obtain a CT scan abdomen and pelvis without IV contrast evaluate for any other acute processes if negative will DC home with instructions to follow up with primary care provider. Patient understands agrees with this plan. Time: 16:00 Reevaluation #2: - CT scan abdomen pelvis without IV contrast negative for any acute processes. Will DC home with symptomatic treatment instructions return if any new or worsening symptoms to follow-up with primary care provider. Patient understands agrees with this plan. Time: 17:15 [facility] - Abdominal Pain Medical Records Attestation: I reviewed the patient's medical records. Lab Data Attestation: I reviewed the patient's lab results. Labs: Lab Results 08/28/21 08/28/21 Range/Units 14:01 14:01 Urine Color YELLOW Urine Appearance CLEAR Urine pH 7.5 (5.0-8.0) Ur Specific [place] 1.010 (1.005-1.025) Urine Protein NEG (NEG-TRACE) MG/DL Urine Glucose (UA) NEG (NEG) MG/DL Urine Ketones NEG (NEG) MG/DL Urine Blood NEG (NEG) Urine Nitrite NEG (NEG) Ur Leukocyte Esterase NEG (NEG) Urine Test NEGATIVE (NEGATIVE) Imaging Data Pelvic/transvaginal/Doppler ultrasound: Attestation: I personally reviewed and interpreted this imaging study as follows: Radiologist's impression: FINDINGS: Uterus: The uterus is retroverted and measures 7.9 x 4.9 x 5.5 cm.? Volume 91 mL. The double wall endometrial thickness is within limits of normal at 14 mm. There is trace fluid in the endocervical canal. No fluid in the uterine cavity. There is an arcuate endometrial cavity shape as noted previously. No fundal indentation. The uterus is smooth in contour and has normal myometrial echogenicity. ? No visible fibroid. Adnexa: Both ovaries are visualized. There is normal color flow to the adnexa and normal bilateral low resistance waveforms. There is no ovarian torsion.? There is no pelvic ascites or fluid collection. Right ovary measures 2.6 x 2.1 x 2.4 cm. Volume 6.7 mL. No right adnexal mass. Left ovary measures 4.6 x 2.1 x 2.6 cm. Volume 13.2 mL. There is a dominant anterior ovarian follicle measuring 2.4 x 1.8 x 2.0 cm. No left adnexal mass. US/US pelvic and transvaginal IMPRESSION: 1. No ovarian torsion, adnexal mass, or pelvic ascites 2. Retroverted uterus normal in size. CT scan abdomen and pelvis without IV contrast: Attestation: I personally reviewed and interpreted this imaging study as follows: Radiologist's impression: FINDINGS: LUNG BASES: The visualized lung bases are unremarkable. There is a small hiatal hernia. LIVER, GALLBLADDER, AND BILIARY TREE: The liver is normal in size, shape, and attenuation. No focal hepatic lesion or biliary ductal dilatation is present. The gallbladder is unremarkable with no evidence of radiopaque gallstones, gallbladder wall thickening, or obvious pericholecystic inflammatory changes.? PANCREAS: Unremarkable.? SPLEEN: Unremarkable.? ADRENAL GLANDS: Unremarkable.? KIDNEYS AND URETERS: The kidneys are normal in size, shape, and attenuation. No hydronephrosis, hydroureter, or calculi seen. No perinephric stranding. ? BLADDER: Unremarkable.? GASTROINTESTINAL TRACT: There is scattered stool seen throughout the colon without any significant distention. The small bowel loops are normal caliber. Appendix is normal caliber. No inflammatory process seen in the abdomen.? ABDOMINAL WALL: A small lumbar canal hernia containing fat is noted.? LYMPH NODES: Normal. VASCULAR: Unremarkable. PELVIC VISCERA: The uterus is retroverted. There is no adnexal mass or free fluid.? OSSEOUS STRUCTURES: Unremarkable.? CT/CT abdomen pelvis wo con IMPRESSION: No acute intra-abdominal process seen. ? Retroverted uterus. No adnexal mass or free fluid seen.? Discharge Plan Discharge Clinical Impression: COVID-19, Abdominal pain, suprapubic Patient Disposition: Home, Self-Care Instructions: Pelvic Pain in Women (ED), Heat Pack Application (ED), COVID-19 (Coronavirus Disease 2019) (ED) Prescriptions: New ofloxacin 0.3 % drops 10 drp otic (ears) BID 14 Days Qty: 10 RF: 0 cyclobenzaprine 10 mg tablet 10 mg PO Q8H PRN (Reason: Muscle spasm) Qty: 14 RF: 0 amoxicillin-pot clavulanate [Augmentin] 875-125 mg tablet 1 tab PO BID 10 Days Qty: 20 RF: 0 No Action citalopram 10 mg tablet 15 mg PO DAILY 90 Days Qty: 135 RF: 2 Cortisporin-TC 3.3-3-10-0.5 mg/mL drops,suspension 4 drp otic (ear) left QID 7 Days Qty: 10 RF: 0 naproxen 500 mg tablet 500 mg PO BID PRN (Reason: pain) Qty: 20 RF: 0 ofloxacin 0.3 % drops 10 drp otic (ear) left DAILY 7 Days Qty: 10 RF: 0 ibuprofen 600 mg tablet 600 mg PO TID PRN (Reason: pain) Qty: 60 RF: 0 Referrals: Po,Zuly Sneed MD [Primary Care Provider] - 2 days Stand Alone Forms: Work/School Release Print Language: Indonesian [facility] Past Medical History Attestation statement: The following information was validated with the patient. Medical History (Updated 08/28/21 @ 17:17 by LYLY Fowler) Anemia Anxiety COVID-19 Lumbar back pain Tourettes syndrome Surgical History No pertinent past surgical history Family History Family History Father No problems noted. Mother No problems noted. Social History Social History Household Members: Family Housing: House Alcohol intake: never Patient Tobacco Use Status: Never used Tobacco Advance Directives: No Patient : No service: No Current occupational status: employed
[2021-08-29 02:14] LABS: CT PCR NOT DETECTED (Not Detect.); NG PCR NOT DETECTED (Not Detect.)
== END 2021-08-28 17:38 | disposition home or self-care (01) ==
PROVIDERS: Physician Assistant Medical; Emergency Provider Emergency Medicine; PCP Internal Medicine
DX: U07.1 COVID-19 (principal); R60.0 Localized edema; R10.33 Periumbilical pain; Z79.899 Other long term (current) drug therapy; Z20.2 Contact with and (suspected) exposure to infections with a predominantly sexual mode of transmission
CPT/HCPCS: 36415; 74176; 76830; 76856; 81003; 81025; 87491; 87591; 93975; 99283; 99284

== ENCOUNTER 2021-09-11 10:05 | Outpatient (REF) | payer OTHER, MEDICAID, SELFPAY ==
[2021-09-11 10:46] LABS: Hematocrit 39.4 % (37-47); Hemoglobin 12.9 g/dl (12.0-16.0); Mean Corpuscular HGB Conc 32.7 g/dl (31.0-35.0); Mean Corpuscular Hemoglobin 27.8 pg (27.0-33.0); Mean Corpuscular Volume 84.9 fL (80-98); Mean Platelet Volume 11.1 fL (9.4-12.3); Platelet Count 281 X10*3/uL (160-400); Red Blood Count 4.64 X10*6/uL (4.20-5.50); Red Cell Distribution Width 14.1 % (11.0-16.0); White Blood Count 6.4 X10*3/uL (4.8-10.8)
[2021-09-11 10:48] LABS: Appearance Urine CLEAR; Color Urine YELLOW; Glucose Urine UA NEG (NEG); Leukocyte Esterase Urine NEG (NEG); Nitrite Urine NEG (NEG); Urine Blood NEG (NEG); Urine Ketones 5 MG/DL (NEG); Urine Protein NEG (NEG-TRACE)
[2021-09-11 11:16] LABS: Anion Gap 11 (12-20); Blood Urea Nitrogen 12 mg/dL (9-16); Calcium 9.5 mg/dL (8.4-10.2); Carbon Dioxide 24 mmol/L (22-29); Chloride 106 mmol/L (96-108); Estimated Glomerular Filt Rate > 60; Glucose Random 94 mg/dL (60-115); Iron 42 mcg/dL (30-160); Percent Iron Saturation 9 % (15-50); Potassium 3.9 mmol/L (3.3-5.1); Sodium 137 mmol/L (135-145); Total Iron Binding Capacity 464 mcg/dL (228-428); Unsaturated Iron Binding 422 ug/dL
[2021-09-11 11:40] LABS: HCG Quantitative 158 mIU/mL
== END 2021-09-11 10:06 | disposition home or self-care (01) ==
LOC: HO.LAB 10:05
PROVIDERS: PCP Internal Medicine; Visit Provider Physician Assistant
DX: D50.9 Iron deficiency anemia, unspecified (principal); R53.83 Other fatigue; R30.0 Dysuria; Z32.02 Encounter for pregnancy test, result negative
CPT/HCPCS: 36415; 80048; 81003; 82306; 83540; 84702; 85027; 87480; 87510; 87660

== ENCOUNTER → 2021-09-20 13:48 | Outpatient (BNVA) | payer OTHER, MEDICAID, SELFPAY | PROVIDERS: Visit Provider Advanced Practice Midwife | DX: Z32.01 Encounter for pregnancy test, result positive (principal); R53.83 Other fatigue; F95.2 Tourette's disorder; U07.1 COVID-19 | CPT/HCPCS: 81025 ==

== ENCOUNTER 2021-09-21 16:18 | Emergency (ER) | payer OTHER, MEDICAID, SELFPAY ==
--- NOTE | ~2021-09-21 | US_ITS ---
EXAMINATION: US OBSTETRICAL ULTRASOUND CLINICAL INFORMATION: Left lower quadrant pain. HCG of 158 on 08/22/2021. COMPARISON: Pelvic ultrasound dated 08/28/2021. LMP: 08/13/2021. Gestational age by maternal dates is 5 weeks 4 days. Estimated date of delivery by maternal dates is 05/20/2022. TECHNIQUE: Transabdominal and transvaginal imaging was obtained. FINDINGS: There is a single intrauterine gestational sac with visible yolk sac. There is no pole identified. There is no significant subchorionic hemorrhage or hematoma. There are nabothian cysts. ARCHIE (estimated date of delivery): 6 weeks 1 day +/- 4 days. MATERNAL ADNEXA: The right maternal ovary measures 3.1 x 1.7 x 1.8 cm. Normal Doppler detectable vascular flow. The left maternal ovary measures 5.3 x 3.4 x 4.9 cm. Normal Doppler detectable vascular flow. Left ovarian hemorrhagic cyst measuring 4.6 x 3 x 4.4 cm. There is no significant maternal adnexal mass. No maternal pelvic ascites. US/US OB <= 14 weeks fetus IMPRESSION: 1. Single intrauterine gestational sac corresponding to gestational age of 6 weeks 1 day and ARCHIE of 05/16/2022. Unremarkable yoke sac. pole not yet identified. No subchorionic hemorrhage. 2. Left ovarian hemorrhagic cyst measuring 4.6 cm. 3. Continued serial beta hCG and SURVEYOR HELPER ultrasound within 7-10 days recommended to help further evaluate for development of pole.
[2021-09-21 16:39] VITALS: BP 110/45; PULSE 100; RESP 18; TEMP 37.1; O2SAT 99; BMI 23.3
[2021-09-21] MEDS: Acetaminophen 325 MG TABLET 650 MG PO (19:49)
--- NOTE | 2021-09-21 20:12 | ED.BACK ---
HPI - Back Pain/Injury General Chief Complaint: Back Pain/Injury <LYLY Flores - Last Filed: 09/21/21 20:52> Stated Complaint: back pain unable to walk.. <LYLY Flores - Last Filed: 09/21/21 20:52> Time Seen by Provider: 09/21/21 18:48 <LYLY Flores Last Filed: 09/21/21 20:52> Source: patient <LYLY Flores Last Filed: 09/21/21 20:52> Mode of arrival: ambulatory <LYLY Flores Last Filed: 09/21/21 20:52> History of Present Illness HPI Narrative: 26-year-old female a past medical history of anemia, anxiety, lumbar back pain, Tourettes, at 5 weeks gestation presenting to the ED complaining of low back pain and lower abdominal pain s/p lifting books and laptops at work this morning around 11:00 a.m. Reports difficulty ambulating secondary to pain. States feels she pulled a muscle. Denies direct trauma/injury or fall, radiation of pain down legs, numbness, tingling, weakness, urinary incontinence/retention, vaginal bleeding/discharge, hematuria <LYLY Flores Last Filed: 09/21/21 20:52> MD elicited complaint: back pain and fall <LYLY Flores Last Filed: 09/21/21 20:52> Related Data Home Medications: Previous Rx's Medication Instructions Recorded citalopram 10 mg tablet 15 mg PO DAILY 90 Days #135 tab 07/16/21 vitamin with calcium 1 tab PO DAILY #90 tab 09/20/21 no.72-iron 27 mg-folic acid 1 mg tablet ( Vitamins Plus Low Iron) <LYLY Flores Last Filed: 09/21/21 20:52> Allergies/Adverse Reactions: Allergies Allergy/AdvReac Type Severity Reaction Status Date / Time latex [LATEX] Allergy Mild RASH Verified 09/20/21 13:53 From [facility] Allergy Unknown SEIZURES Uncoded 09/20/21 13:53 latex Allergy Unknown d Uncoded 09/20/21 13:53 onion Allergy Unknown f Uncoded 09/20/21 13:53 [facility] Allergy Unknown p Uncoded 09/20/21 13:53 <LYLY Flores - Last Filed: 09/21/21 20:52> Review of Systems Review of Systems: Constitutional: No Fever, No Chills, No Fatigue, No Malaise ENT/Mouth: No Ear Pain, No Nasal Congestion, No sore throat, No Rhinorrhea, No Swallowing Difficulty Eyes: No Eye Pain, No Redness, No Discharge Cardiovascular: No Chest Pain, No SOB, No Edema, No Palpitations Respiratory: No Cough, No Dyspnea Gastrointestinal: No Nausea, No Vomiting, No Diarrhea, No Constipation, + Abdominal pain Genitourinary: No Dysuria, No Hematuria, No Urinary Incontinence/retention, No Flank Pain, No Urinary Flow Changes, No vaginal discharge, No vaginal bleeding Musculoskeletal: + joint pain, No Myalgias, No Joint Swelling Skin: No Skin Lesions, No rash Neuro: No Weakness, No Numbness, No Paresthesias <LYLY Flores Last Filed: 09/21/21 20:52> Yes all other systems are reviewed and are negative <LYLY Flores Last Filed: 09/21/21 20:52> Neurologic: Denies Sensory deficit (Neuro) <LYLY Flores - Last Filed: 09/21/21 20:52> [facility] Past Medical History Attestation statement: The following information was validated with the patient. <LYLY Flores Last Filed: 09/21/21 20:52> Medical History: Medical History Anemia Anxiety COVID-19 Lumbar back pain Tourettes syndrome <LYLY Flores Last Filed: 09/21/21 20:52> Surgical History: Surgical History No pertinent past surgical history <LYLY Flores Last Filed: 09/21/21 20:52> Family History Family History: Family History Father No problems noted. Mother No problems noted. <LYLY Flores Last Filed: 09/21/21 20:52> Social History Social History: Social History Household Members: Family Housing: House Alcohol intake: never Patient Tobacco Use Status: Never used Tobacco Advance Directives: No Advance Directives Information Provided: Yes Patient : Yes (5 weeks : confirmed by urine and blood.) service: No Current occupational status: employed <LYLY Flores - Last Filed: 09/21/21 20:52> Physical Exam Vital Signs: Vital Signs: Last Vital Signs Temp 98.8 F 09/21/21 16:39 Pulse 100 09/21/21 16:39 Resp 18 09/21/21 16:39 BP 110/45 L 09/21/21 16:39 Pulse Ox 99 09/21/21 16:39 Body Mass Index 23.3 <LYLY Flores - Last Filed: 09/21/21 20:52> Vital Signs: Last Vital Signs Temp 98.8 F 09/21/21 16:39 Pulse 100 09/21/21 16:39 Resp 18 09/21/21 16:39 BP 110/45 L 09/21/21 16:39 Pulse Ox 99 09/21/21 16:39 Body Mass Index 23.3 <Gale Gabriel MD - Last Filed: 09/21/21 22:07> Const: General: cooperative, healthy appearing and no acute distress <LYLY Flores - Last Filed: 09/21/21 20:52> Orientation/consciousness: patient oriented x3 <LYLY Flores - Last Filed: 09/21/21 20:52> Limitations: no limitations <LYLY Flores - Last Filed: 09/21/21 20:52> HENMT: Head: Yes normal to inspection <LYLY Flores - Last Filed: 09/21/21 20:52> Ears: hearing grossly normal bilaterally <LYLY Flores - Last Filed: 09/21/21 20:52> General nose exam: Normal external nose present <LYLY Flores - Last Filed: 09/21/21 20:52> Face and sinus: Yes normal facial exam <LYLY Flores - Last Filed: 09/21/21 20:52> Eyes: General: appearance normal, both eyes and all related structures <LYLY Flores - Last Filed: 09/21/21 20:52> EOM: EOMs intact bilaterally <Lamar Efra, [place] - Last Filed: 09/21/21 20:52> Neck: Other: No midline cervical spinous tenderness <Lamar [facility], [facility] Last Filed: 09/21/21 20:52> Neck: Yes normal visual inspection <Lamar Efra [facility] Last Filed: 09/21/21 20:52> Resp: Effort & Inspection: normal respiratory effort, no respiratory distress and no stridor <Lamar [facility], [facility] Last Filed: 09/21/21 20:52> Cardio: Rate: regular rate <Lamar Efra [facility] Last Filed: 09/21/21 20:52> Heart sounds: S1 normal heart sound present and S2 normal heart sound present <Lamar Efra [facility] Last Filed: 09/21/21 20:52> GI: Inspection: Yes normal to inspection <Lamarbrenda Kraus [facility] Last Filed: 09/21/21 20:52> Palpation (GI): Soft to palpation, Tenderness to palpation present (GI) in the LLQ, no guarding and not rigid <Lamar Efra [place] - Last Filed: 09/21/21 20:52> : General: Yes no CVA tenderness <Lamar Efra [place] - Last Filed: 09/21/21 20:52> Back/Spine/Pelvis: Other: No midline thoracic/lumbar spinous tenderness/step-off or deformity. + left-sided paraspinal thoracic tenderness. +bilateral lumbar paraspinal tenderness>greater on the left. No ecchymosis/erythema/deformity <Lamar Efra, [place] - Last Filed: 09/21/21 20:52> Back: no CVA tenderness <Lamar Efra [place] - Last Filed: 09/21/21 20:52> Skin: Rashes: no rashes <Lamar Efra [place] - Last Filed: 09/21/21 20:52> Wounds: no wounds <Lamar Efra [facility] Last Filed: 09/21/21 20:52> Neuro: Other: Sensation intact to light touch, strength intact throughout, no saddle anesthesia <Lamar Efra [place] - Last Filed: 09/21/21 20:52> General: patient oriented x3, tone normal, moves all extremities and no focal motor deficits <LYLY Flores - Last Filed: 09/21/21 20:52> Gait exam (Neuro): Normal gait present <LYLY Flores - Last Filed: 09/21/21 20:52> Motor exam (neuro): 5/5 motor strength present throughout <LYLY Flores - Last Filed: 09/21/21 20:52> Sensory Exam: No Sensory deficit (Neuro) <LYLY Flores - Last Filed: 09/21/21 20:52> Extrem: General: Yes normal to inspection <LYLY Flores - Last Filed: 09/21/21 20:52> Course Course Course Narrative: -91--ED care transferred to Dr. Gabriel pending labs, UA, Ob ultrasound, and anticipated DC home. <LYLY Flores - Last Filed: 09/21/21 20:52> Reevaluation(s) Reevaluation #1: Pelvic ultrasound:1. Single intrauterine gestational sac corresponding to gestational age of 6 weeks 1 day and ARCHIE of 05/16/2022. Unremarkable yoke sac. pole not yet identified. No subchorionic hemorrhage. ? 2. Left ovarian hemorrhagic cyst measuring 4.6 cm. ? 3. Continued serial beta hCG and ARTIFICIAL LOG MACHINE OPERATOR ultrasound within 7-10 days recommended to help further evaluate for development of pole. Unremarkable CBC, chemistry, and UA Will discharge to follow-up with PCP/Ob. <Gale Gabriel MD - Last Filed: 09/21/21 22:07> Time: 22:05 <Gale Gabriel MD - Last Filed: 09/21/21 22:07> MDM - Back Pain/Injury MDM Narrative Medical decision making narrative: 26-year-old female a PMHx of anemia, anxiety, lumbar back pain, Tourettes, at 5 weeks gestation presenting to the ED complaining of low back pain and lower abdominal pain s/p lifting books and laptops at work this morning around 11:00 a.m. On exam vital signs stable, NAD, nontoxic, no midline spinous tenderness throughout, paraspinal tenderness as described above greater on the left. Abdomen soft with LLQ TTP. Concern for MSK pain/strain. Abdominal pain concerning for threatened vs ectopic vs MSK referred pain from back injury. Rule out UTI. Lower concern for renal stone/pyelo Plan: Labs, UA, Ob ultrasound, re-evaluate <LYLY Flores - Last Filed: 09/21/21 20:52> Medical Records Attestation: I reviewed the patient's medical records. <LYLY Flores - Last Filed: 09/21/21 20:52> Lab Data Attestation: I reviewed the patient's lab results. <LYLY Flores - Last Filed: 09/21/21 20:52> Result diagrams: : 09/21/21 20:48 09/21/21 20:48 <LYLY Flores - Last Filed: 09/21/21 20:52> Labs: Lab Results 09/21/21 09/21/21 09/21/21 Range/Units 20:48 20:48 20:48 WBC 9.2 (4.8-10.8) X10*3/uL RBC 4.28 (4.20-5.50) X10*6/uL Hgb 11.9 L (12.0-16.0) g/dl Hct 36.0 L (37.0-47.0) % MCV 84.1 (80.0-98.0) fL MCH 27.8 (27.0-33.0) pg MCHC 33.1 (31.0-35.0) g/dl RDW 14.0 (11.0-16.0) % Plt Count 248 (160-400) X10*3/uL MPV 10.9 (9.4-12.3) fL Immature Gran % (Auto) 0.3 (0.0-0.4) % Neut % (Auto) 57.6 (45-73) % Lymph % (Auto) 33.5 (20-40) % [place] % (Auto) 6.0 (2-11) % Eos % (Auto) 2.1 (0-4) % Baso % (Auto) 0.5 (0-2) % Lymph # (Auto) 3.1 (1.2-4.9) X10*3/uL [place] # (Auto) 0.6 (0.1-1.2) X10*3/uL Eos # (Auto) 0.2 (0.0-0.4) X10*3/uL Baso # (Auto) 0.1 (0.0-0.2) X10*3/uL Abs Immat Gran (auto) 0.03 (0.00-0.03) X10*3/uL Absolute Neuts (auto) 5.3 (2.0-8.3) x10*3/uL Absolute Nucleated RBC 0.000 (0.0-0.012) X10*3/uL Nucleated RBC % (auto) 0.0 (0.0-0.2) /100WBC Sodium 136 (135-145) mmol/L Potassium 3.5 (3.3-5.1) mmol/L Chloride 106 (96-108) mmol/L Carbon Dioxide 22 (22-29) mmol/L Anion Gap 12 (12-20) BUN 9 (9-16) mg/dL Creatinine 0.62 (0.5-1.4) mg/dL Estim Creat Clear Calc 110.6 Estimated GFR > 60 Random Glucose 83 (60-115) mg/dL Calcium 8.9 D (8.4-10.2) mg/dL Magnesium 1.9 (1.6-2.6) mg/dL Total Bilirubin 0.4 (0.0-1.0) mg/dL Direct Bilirubin 0.2 (0.0-0.5) mg/dL AST 14 (5-31) U/L ALT 11 (0-31) U/L Alkaline Phosphatase 51 (39-117) U/L Total Protein 6.9 (6.5-8.0) g/dL Albumin 4.2 (3.5-5.0) g/dL Lipase 19 (8-78) U/L Urine Color YELLOW Urine Appearance CLEAR Urine pH 7.0 (5.0-8.0) Ur Specific [place] 1.010 (1.005-1.025) Urine Protein NEG (NEG-TRACE) MG/DL Urine Glucose (UA) NEG (NEG) MG/DL Urine Ketones 15 (NEG) MG/DL Urine Blood NEG (NEG) Urine Nitrite NEG (NEG) Ur Leukocyte Esterase 1+ H (NEG) Urine RBC 0 (0) /HPF Urine WBC 0-2 (0-4) /HPF Ur Squamous Epith Cells TRACE /LPF Urine Bacteria TRACE /LPF Urine Mucus TRACE /LPF <LYLY Flores - Last Filed: 09/21/21 20:52> Lab Results 09/21/21 09/21/21 09/21/21 Range/Units 20:48 20:48 20:48 WBC 9.2 (4.8-10.8) X10*3/uL RBC 4.28 (4.20-5.50) X10*6/uL Hgb 11.9 L (12.0-16.0) g/dl Hct 36.0 L (37.0-47.0) % MCV 84.1 (80.0-98.0) fL MCH 27.8 (27.0-33.0) pg MCHC 33.1 (31.0-35.0) g/dl RDW 14.0 (11.0-16.0) % Plt Count 248 (160-400) X10*3/uL MPV 10.9 (9.4-12.3) fL Immature Gran % (Auto) 0.3 (0.0-0.4) % Neut % (Auto) 57.6 (45-73) % Lymph % (Auto) 33.5 (20-40) % [place] % (Auto) 6.0 (2-11) % Eos % (Auto) 2.1 (0-4) % Baso % (Auto) 0.5 (0-2) % Lymph # (Auto) 3.1 (1.2-4.9) X10*3/uL [place] # (Auto) 0.6 (0.1-1.2) X10*3/uL Eos # (Auto) 0.2 (0.0-0.4) X10*3/uL Baso # (Auto) 0.1 (0.0-0.2) X10*3/uL Abs Immat Gran (auto) 0.03 (0.00-0.03) X10*3/uL Absolute Neuts (auto) 5.3 (2.0-8.3) x10*3/uL Absolute Nucleated RBC 0.000 (0.0-0.012) X10*3/uL Nucleated RBC % (auto) 0.0 (0.0-0.2) /100WBC Sodium 136 (135-145) mmol/L Potassium 3.5 (3.3-5.1) mmol/L Chloride 106 (96-108) mmol/L Carbon Dioxide 22 (22-29) mmol/L Anion Gap 12 (12-20) BUN 9 (9-16) mg/dL Creatinine 0.62 (0.5-1.4) mg/dL Estim Creat Clear Calc 110.6 Estimated GFR > 60 Random Glucose 83 (60-115) mg/dL Calcium 8.9 D (8.4-10.2) mg/dL Magnesium 1.9 (1.6-2.6) mg/dL Total Bilirubin 0.4 (0.0-1.0) mg/dL Direct Bilirubin 0.2 (0.0-0.5) mg/dL AST 14 (5-31) U/L ALT 11 (0-31) U/L Alkaline Phosphatase 51 (39-117) U/L Total Protein 6.9 (6.5-8.0) g/dL Albumin 4.2 (3.5-5.0) g/dL Lipase 19 (8-78) U/L Urine Color YELLOW Urine Appearance CLEAR Urine pH 7.0 (5.0-8.0) Ur Specific [place] 1.010 (1.005-1.025) Urine Protein NEG (NEG-TRACE) MG/DL Urine Glucose (UA) NEG (NEG) MG/DL Urine Ketones 15 (NEG) MG/DL Urine Blood NEG (NEG) Urine Nitrite NEG (NEG) Ur Leukocyte Esterase 1+ H (NEG) Urine RBC 0 (0) /HPF Urine WBC 0-2 (0-4) /HPF Ur Squamous Epith Cells TRACE /LPF Urine Bacteria TRACE /LPF Urine Mucus TRACE /LPF <Gale Gabriel MD - Last Filed: 09/21/21 22:07> Discharge Plan Discharge Clinical Impression: Abdominal pain during Qualifiers: Trimester: first trimester Qualified Code(s): O26.891 - Other specified related conditions, first trimester Back strain Qualifiers: Encounter type: initial encounter Qualified Code(s): S39.012A - Strain of muscle, fascia and tendon of lower back, initial encounter <LYLY Folres - Last Filed: 09/21/21 20:52> Patient Disposition: Home, Self-Care <LYLY Flores - Last Filed: 09/21/21 20:52> Instructions: Acute Low Back Pain (ED), Abdominal Pain (ED) <LYLY Flores - Last Filed: 09/21/21 20:52> Additional Instructions: Due to Tylenol is one of the only medications you can take for your back pain. Apply heat, rest If her pain persists or worsens, becomes unbearable, you are unable to walk, you develop urinary incontinence/retention, weakness, numbness please return to the ED If you develop constant worsening abdominal pain, vaginal bleeding, vaginal discharge, nausea/vomiting please return to the ED <LYLY Flores - Last Filed: 09/21/21 20:52> Prescriptions: No Action citalopram 10 mg tablet 15 mg PO DAILY 90 Days Qty: 135 RF: 2 Vitamin Plus Low Iron 27 mg iron- 1 mg tablet 1 tab PO DAILY Qty: 90 RF: 5 <LYLY Flores - Last Filed: 09/21/21 20:52> Referrals: Po,Zuly Sneed MD [Primary Care Provider] - 2 days <LYLY Flores - Last Filed: 09/21/21 20:52>
[2021-09-21 21:09] LABS: MANUAL DIFF FLAG NO
[2021-09-21 21:13] LABS: Basophils Absolute Auto 0.1 X10*3/uL (0.0-0.2); Basophils Percent Auto 0.5 % (0-2); Eosinophils Absolute Auto 0.2 X10*3/uL (0.0-0.4); Eosinophils Percent Auto 2.1 % (0-4); Hemoglobin 11.9 g/dl (12.0-16.0); Imm Gran Abs Auto 0.03 X10*3/uL (0.00-0.03); Imm Gran Pct Auto 0.3 % (0.0-0.4); Lymphocytes Absolute Auto 3.1 X10*3/uL (1.2-4.9); Lymphocytes Percent Auto 33.5 % (20-40); Mean Corpuscular HGB Conc 33.1 g/dl (31.0-35.0); Mean Corpuscular Hemoglobin 27.8 pg (27.0-33.0); Mean Corpuscular Volume 84.1 fL (80.0-98.0); Mean Platelet Volume 10.9 fL (9.4-12.3); Monocytes Absolute Auto 0.6 X10*3/uL (0.1-1.2); Neutrophils Absolute Auto 5.3 x10*3/uL (2.0-8.3); Neutrophils Percent Auto 57.6 % (45-73); Platelet Count 248 X10*3/uL (160-400); Red Blood Count 4.28 X10*6/uL (4.20-5.50); White Blood Count 9.2 X10*3/uL (4.8-10.8)
[2021-09-21 21:15] LABS: Appearance Urine CLEAR; Color Urine YELLOW; Glucose Urine UA NEG (NEG); Leukocyte Esterase Urine 1+ (NEG); Nitrite Urine NEG (NEG); UACC Culture Trigger YES; Urine Blood NEG (NEG); Urine Ketones 15 MG/DL (NEG); Urine Protein NEG (NEG-TRACE)
[2021-09-21 21:34] LABS: Alanine Aminotransferase 11 U/L (0-31); Albumin Level 4.2 g/dL (3.5-5.0); Alkaline Phosphatase 51 U/L (39-117); Anion Gap 12 (12-20); Aspartate Amino Transferase 14 U/L (5-31); Bilirubin Direct 0.2 mg/dL (0.0-0.5); Bilirubin Total 0.4 mg/dL (0.0-1.0); Blood Urea Nitrogen 9 mg/dL (9-16); Calcium 8.9 mg/dL (8.4-10.2); Carbon Dioxide 22 mmol/L (22-29); Chloride 106 mmol/L (96-108); Creatinine Clr Calc Pharmacy 110.6; Estimated Glomerular Filt Rate > 60; Glucose Random 83 mg/dL (60-115); Lipase 19 U/L (8-78); Magnesium 1.9 mg/dL (1.6-2.6); Potassium 3.5 mmol/L (3.3-5.1); Sodium 136 mmol/L (135-145); Total Protein 6.9 g/dL (6.5-8.0)
[2021-09-21 21:38] LABS: Bacteria Urine TRACE /LPF; Mucus Urine TRACE /LPF; RBC Urine 0 /HPF (0); Squamous Epithelial Cell Urine TRACE /LPF; WBC Urine 0-2 /HPF (0-4)
== END 2021-09-21 22:30 | disposition home or self-care (01) ==
PROVIDERS: Physician Assistant; Emergency Provider Emergency Medicine; PCP Internal Medicine
DX: O26.891 Other specified pregnancy related conditions, first trimester (principal); R10.30 Lower abdominal pain, unspecified; O9A.211 Injury, poisoning and certain other consequences of external causes complicating pregnancy, first trimester; S39.012A Strain of muscle, fascia and tendon of lower back, initial encounter; X50.0XXA Overexertion from strenuous movement or load, initial encounter; Z3A.01 Less than 8 weeks gestation of pregnancy; Y93.89 Activity, other specified; Y92.219 Unspecified school as the place of occurrence of the external cause; Y99.0 Civilian activity done for income or pay
CPT/HCPCS: 36415; 76801; 80048; 80076; 81001; 83690; 83735; 84702; 85025; 87086; 99284

== ENCOUNTER → 2021-10-04 13:46 | Outpatient (BNVA) | payer OTHER, MEDICAID, SELFPAY | PROVIDERS: PCP Internal Medicine; Visit Provider Advanced Practice Midwife | DX: O99.341 Other mental disorders complicating pregnancy, first trimester (principal); F95.2 Tourette's disorder; O99.011 Anemia complicating pregnancy, first trimester; D64.9 Anemia, unspecified; O98.511 Other viral diseases complicating pregnancy, first trimester; Z86.19 Personal history of other infectious and parasitic diseases; Z83.3 Family history of diabetes mellitus; Z91.040 Latex allergy status; Z91.018 Allergy to other foods; Z91.048 Other nonmedicinal substance allergy status; Z3A.08 8 weeks gestation of pregnancy; Z79.899 Other long term (current) drug therapy | CPT/HCPCS: 99212 ==

== ENCOUNTER 2021-10-18 13:37 | Outpatient (REF) | payer OTHER, MEDICAID, SELFPAY ==
[2021-10-20 11:18] LABS: BV Int Neg Control Negative (Negative)
[2021-10-20 11:19] LABS: BV Int Pos Control Positive (Positive)
[2021-10-20 15:02] LABS: CT PCR NOT DETECTED (Not Detect.); NG PCR NOT DETECTED (Not Detect.)
== END 2021-10-18 13:38 | disposition home or self-care (01) ==
LOC: HO.LAB 13:37
PROVIDERS: PCP Internal Medicine; Visit Provider Advanced Practice Midwife
DX: Z34.01 Encounter for supervision of normal first pregnancy, first trimester (principal); Z3A.10 10 weeks gestation of pregnancy
CPT/HCPCS: 87480; 87491; 87510; 87591; 87660; 99212

== ENCOUNTER 2021-11-02 11:20 | Outpatient (REF) | payer OTHER, SELFPAY ==
--- NOTE | ~2021-11-02 | US_ITS ---
EXAMINATION: OBSTETRICAL ULTRASOUND, FIRST TRIMESTER HISTORY: A 26-year-old at 11.3 weeks of gestation NT screening COMPARISON: 09/21/2021 TECHNIQUE: Real time transabdominal imaging with color and M-mode Doppler. FINDINGS: A single, live IUP CRL of 46.1 mm c/w 11.3wks is noted. Heart Rate: 158 beats per minute. Normal yolk sac seen. NT was 1.4.mm. NB Present The embryo appears sonographically wnl for this GA. Both maternal ovaries are seen and appear normal. GESTATIONAL AGE: 1. Established GA: 11.3 wks 2. GA from AUA: 11.3 wks ESTIMATED DATE OF DELIVERY: 1. Established ARCHIE: 05/21/2022 2. ARCHIE from AUA: 05/21/2022 US/US OB 1T nuc measure IMPRESSION: 1. A single live IUP 2. Size equals dates 3. NT of 1.4 mm MFM Consultation: I reviewed the ultrasound findings along with significance of NT measurement. The NT of less than 3mm is generally reassuring. However, the sensitivity for T21 detection is only 60%. I reviewed the availability of serum aneuploidy screening which includes cell-free DNA and placental protein based tests. I discussed the sensitivity, false-positive rate, and other limitations associated with each test. I also reviewed the availability of invasive diagnostic tests that are associated small but definite risk of miscarriage. We also reviewed the differences between screening tests and diagnostic tests. After our discussion, she opted for the First trimester screening that is based on cell-free DNA or non-invasive testing (NIPT). She is on Celexa for anxiety. Use of SSRI in is acceptable as long as there is a maternal indication. Neonatologists should be made aware since there is an increased instance of adaptation syndrome. A follow up at 18 weeks for survey has been scheduled. Thank you very much for this referral. Total time 20 minutes. The time spent was devoted to counseling the patient about the disease and diagnosis, coordinating care including reviewing her records, pertinent lab data and studies, as well as discussing diagnostic evaluation and workup, plan therapeutic interventions and future disposition of care. This includes any additional research needed to obtain further information in formulating the plan of care of this patient. This note was generated with a voice recognition program. Please excuse any errors which may have been overlooked during my review of this note. Sometimes these errors may affect the content or meaning of a given sentence.
== END 2021-11-02 11:21 | disposition home or self-care (01) ==
LOC: HO.US 11:20
PROVIDERS: PCP Internal Medicine; Visit Provider Advanced Practice Midwife
DX: O26.891 Other specified pregnancy related conditions, first trimester (principal); F95.2 Tourette's disorder; U07.1 COVID-19; Z3A.11 11 weeks gestation of pregnancy
CPT/HCPCS: 76813

== ENCOUNTER → 2021-11-15 13:45 | Outpatient (BNVA) | payer OTHER, SELFPAY | PROVIDERS: PCP Internal Medicine; Visit Provider Obstetrics & Gynecology | DX: O26.892 Other specified pregnancy related conditions, second trimester (principal); F95.2 Tourette's disorder; Z3A.14 14 weeks gestation of pregnancy | CPT/HCPCS: 99212 ==

== ENCOUNTER 2021-11-15 14:25 | Outpatient (REF) | payer OTHER, SELFPAY | END 2021-11-15 14:26 | disposition home or self-care (01) | LOC: HO.LAB 14:25 | PROVIDERS: PCP Internal Medicine; Visit Provider Internal Medicine Gastroenterology | DX: Z13.89 Encounter for screening for other disorder (principal) ==

== ENCOUNTER → 2021-11-30 10:31 | Outpatient (BNVA) | payer OTHER, SELFPAY | PROVIDERS: PCP Internal Medicine; Visit Provider Advanced Practice Midwife ==

== ENCOUNTER 2021-12-04 11:12 | Outpatient (REF) | payer OTHER, SELFPAY ==
[2021-12-04 13:12] LABS: Hematocrit 35.3 % (37.0-47.0); Mean Corpuscular Hemoglobin 29.6 pg (27.0-33.0); Mean Corpuscular Volume 87.2 fL (80.0-98.0); Mean Platelet Volume 11.7 fL (9.4-12.3); Platelet Count 239 X10*3/uL (160-400); Red Blood Count 4.05 X10*6/uL (4.20-5.50); Red Cell Distribution Width 13.9 % (11.0-16.0)
[2021-12-04 13:28] LABS: Glucose 1 Hour PP 50gm Dose 132 mg/dL (60-140)
[2021-12-04 13:44] LABS: Amphetamine Screen Urine Not Detected (Not Detect); Barbiturates, Urine Not Detected (Not Detect); Benzodiazepines Screen Urine Not Detected (Not Detect); Cannabinoid Screen Urine Not Detected (Not Detect); Cocaine Screen Urine Not Detected (Not Detect); Fentanyl, urine Not Detected (Not Detect); Opiate Screen Urine Not Detected (Not Detect); Phencyclidine Screen Urine Not Detected (Not Detect)
[2021-12-05 04:49] LABS: HIV AB/AG Nonreactive (Nonreactive); HIV Num 1 0.07 S/CO (0.00-0.99); ~Hepatitis C Antibody Nonreactive (Nonreactive)
[2021-12-05 04:51] LABS: Hepatitis B Surface Antigen Negative (Negative)
[2021-12-05 04:52] LABS: Syphilis Screen Nonreactive (Nonreactive)
[2021-12-05 10:30] LABS: Rubella IgG Antibody 1.12 Index
== END 2021-12-04 11:13 | disposition home or self-care (01) ==
LOC: HO.LAB 11:12
PROVIDERS: Advanced Practice Midwife; PCP Internal Medicine; Visit Provider Obstetrics & Gynecology
DX: Z32.01 Encounter for pregnancy test, result positive (principal)
CPT/HCPCS: 80307; 85027; 86762; 86780; 86787; 86803; 86850; 86900; 86901; 87086; 87340; 87389; 99212

== ENCOUNTER → 2021-12-11 13:48 | Outpatient (BNVA) | payer OTHER, SELFPAY | PROVIDERS: PCP Internal Medicine; Visit Provider Obstetrics & Gynecology | DX: Z34.02 Encounter for supervision of normal first pregnancy, second trimester (principal); Z3A.17 17 weeks gestation of pregnancy | CPT/HCPCS: 99212 ==

== ENCOUNTER → 2021-12-18 12:36 | Outpatient (BNVA) | payer OTHER, SELFPAY | PROVIDERS: PCP Internal Medicine; Visit Provider Obstetrics & Gynecology | DX: Z34.02 Encounter for supervision of normal first pregnancy, second trimester (principal) | CPT/HCPCS: 81003; 99212 ==

== ENCOUNTER → 2022-01-15 13:18 | Outpatient (BNVA) | payer OTHER, SELFPAY | PROVIDERS: Visit Provider Advanced Practice Midwife | DX: O99.342 Other mental disorders complicating pregnancy, second trimester (principal); F95.2 Tourette's disorder; O99.891 Other specified diseases and conditions complicating pregnancy; M54.50 Low back pain, unspecified; Z3A.22 22 weeks gestation of pregnancy | CPT/HCPCS: 81003; 99212 ==

== ENCOUNTER 2022-01-18 13:19 | Outpatient (REF) | payer OTHER, SELFPAY ==
--- NOTE | ~2022-01-18 | US_ITS ---
EXAMINATION: US OBSTETRICAL CLINICAL INFORMATION: 26-year-old at 22.3 weeks of gestation Screening for anomaly COMPARISON: 11/02/2021 TECHNIQUE: Real-time transabdominal ultrasound was performed using C1-5 megahertz transducer. FINDINGS: A single, active, fetus is seen in vertex presentation. The placenta is anterior without previa, and the amniotic fluid volume is wnl. MEASUREMENTS: 1. Biparietal Diameter: 5.3 cm; 22.0 wks 2. Occipital Frontal Diameter: 6.9 cm 3. Head Circumference: 19.7 cm; 2.0 wks 4. Abdominal Circumference: 16.9 cm; 22.0 wks 5. Femur Length: 3.64 cm; 21.4 wks 6. Humerus Length: 3.8 cm; 23.3 wks 7. Tibia Length: 3.6 cm; 23.5 wks 8. Ulna Length: 3.5 cm; 23.5 wks 9. Lateral ventricle: 0.6 cm 10. Cerebellum: 2.23 cm; 22.2 wks 11. Cisterna Magna: 0.41 cm 12. Nuchal Fold: 5.0 mm 13. Heart Rate: 149 beats per minute Rt ovary: normal Lt ovary: normal Cervical length 4.9 cm on T/A. GESTATIONAL AGE: 1. Established GA: 22.3 wks 2. GA from [facility]: 22.0 wks ESTIMATED DATE OF DELIVERY: 1. Established ARCHIE: 05/21/2022 2. ARCHIE from [facility]: 05/24/2022 ANATOMY: The visualized anatomy includes but not limited to: 1. Cranium: Normal 2. Intracranial anatomy: cavum septum pellucidi, lateral ventricles, choroid plexus, cerebellum, posterior fossa, third and fourth ventricles. 3. face: orbits, lip/palate, profile, nasal bone 4. Heart: four-chamber view of the heart, ventricular septum, foramen ovale, pulmonary vein, left and right outflow tracts, three-vessel view, 3 vessel trachea view, aortic and ductal arches, situs.. 5. Diaphragm: Normal 6. Abdominal wall: Normal 7. Cord Insertion: Normal 8. Spine: Cervical, thoracic, lumbar, sacral. 9. Stomach: Normal size and shape 10. Right Kidney: Normal 11. Left Kidney: Normal 12. 3 vessel cord: Normal 13. Upper extremity: Open hands, fifth digit. 14. Lower extremity: Tibia, fibula, bilateral feet. 15. Bladder: Normal 16. Genitalia: Female, patient aware US/US OB /maternal detail IMPRESSION: 1. Single, living, intrauterine with appropriate biometry. 2. Normal survey DISCUSSION: I reviewed today's ultrasound findings. We discussed the limitations of ultrasound in diagnosing aneuploidy and other congenital abnormalities. I reviewed the differences between screening test and diagnostic test. Amniocentesis was discussed and declined. She was informed that the baseline incidence of congenital abnormalities is approximately 3-5%. Not all these conditions are diagnosable in utero. RECOMMENDATIONS: 1. Follow-up when necessary Thank you for allowing me to participate in her care. Total time 20 minutes. The time spent was devoted to counseling the patient about the disease and diagnosis, coordinating care including reviewing her records, pertinent lab data and studies, as well as discussing diagnostic evaluation and workup, plan therapeutic interventions and future disposition of care. This includes any additional research needed to obtain further information in formulating the plan of care of this patient. This note was generated with a voice recognition program. Please excuse any errors which may have been overlooked during my review of this note. Sometimes these errors may affect the content or meaning of a given sentence.
== END 2022-01-18 13:20 | disposition home or self-care (01) ==
LOC: HO.US 13:19
PROVIDERS: Visit Provider Obstetrics & Gynecology
DX: Z34.92 Encounter for supervision of normal pregnancy, unspecified, second trimester (principal); Z3A.22 22 weeks gestation of pregnancy
CPT/HCPCS: 76811

== ENCOUNTER → 2022-02-12 10:51 | Outpatient (BNVA) | payer OTHER, SELFPAY | PROVIDERS: Visit Provider Advanced Practice Midwife | DX: O26.812 Pregnancy related exhaustion and fatigue, second trimester (principal); O26.892 Other specified pregnancy related conditions, second trimester; R12 Heartburn; Z3A.26 26 weeks gestation of pregnancy | CPT/HCPCS: 81003; 99212 ==

== ENCOUNTER 2022-02-20 11:50 | Outpatient (REF) | payer OTHER, MEDICAID, SELFPAY ==
[2022-02-20 12:21] LABS: Hematocrit 35.9 % (37.0-47.0); Hemoglobin 11.9 g/dl (12.0-16.0); Mean Corpuscular HGB Conc 33.1 g/dl (31.0-35.0); Mean Corpuscular Volume 90.4 fL (80.0-98.0); Mean Platelet Volume 10.8 fL (9.4-12.3); Platelet Count 212 X10*3/uL (160-400); Red Blood Count 3.97 X10*6/uL (4.20-5.50); Red Cell Distribution Width 12.1 % (11.0-16.0); White Blood Count 9.9 X10*3/uL (4.8-10.8)
[2022-02-20 13:20] LABS: Anion Gap 10 (12-20); Carbon Dioxide 22 mmol/L (22-29); Chloride 104 mmol/L (96-108); Iron 117 mcg/dL (30-160); Percent Iron Saturation 23 % (15-50); Potassium 3.1 mmol/L (3.3-5.1); Sodium 133 mmol/L (135-145); Total Iron Binding Capacity 506 mcg/dL (228-428); Unsaturated Iron Binding 389 ug/dL
[2022-02-20 13:36] LABS: Syphilis Screen Nonreactive (Nonreactive)
[2022-02-20 13:41] LABS: Thyroid Stimulating Hormone 0.82 uIU/mL (0.32-4.0)
[2022-02-20 13:49] LABS: Folate 18.1 ng/mL (> or = 4.0); Vitamin B12 265 pg/mL (200-900)
== END 2022-02-20 11:51 | disposition home or self-care (01) ==
LOC: HO.LAB 11:50
PROVIDERS: Absent Provider Physician Assistant; PCP Internal Medicine; Visit Provider Advanced Practice Midwife
DX: O26.899 Other specified pregnancy related conditions, unspecified trimester (principal); R53.83 Other fatigue; O99.280 Endocrine, nutritional and metabolic diseases complicating pregnancy, unspecified trimester; E83.51 Hypocalcemia; O99.019 Anemia complicating pregnancy, unspecified trimester; D50.9 Iron deficiency anemia, unspecified; Z3A.00 Weeks of gestation of pregnancy not specified; Z20.2 Contact with and (suspected) exposure to infections with a predominantly sexual mode of transmission
CPT/HCPCS: 36415; 80051; 82607; 82746; 83540; 84443; 85027; 86780; 86850

== ENCOUNTER → 2022-03-05 13:32 | Outpatient (BNVA) | payer OTHER, MEDICAID, SELFPAY | PROVIDERS: Visit Provider Advanced Practice Midwife | DX: O26.813 Pregnancy related exhaustion and fatigue, third trimester (principal); R53.83 Other fatigue; O99.343 Other mental disorders complicating pregnancy, third trimester; F95.2 Tourette's disorder; F32.A Depression, unspecified; O26.893 Other specified pregnancy related conditions, third trimester; Z67.91 Unspecified blood type, Rh negative; Z3A.29 29 weeks gestation of pregnancy | CPT/HCPCS: 81003; 99212 ==

== ENCOUNTER 2022-03-19 13:00 | Outpatient (REF) | payer OTHER, MEDICAID, SELFPAY ==
[2022-03-19 15:28] LABS: MANUAL DIFF FLAG NO
[2022-03-19 15:32] LABS: Basophils Absolute Auto 0.1 X10*3/uL (0.0-0.2); Basophils Percent Auto 0.4 % (0-2); Eosinophils Absolute Auto 0.1 X10*3/uL (0.0-0.4); Eosinophils Percent Auto 0.8 % (0-4); Hemoglobin 11.6 g/dl (12.0-16.0); Imm Gran Abs Auto 0.21 X10*3/uL (0.00-0.03); Imm Gran Pct Auto 1.9 % (0.0-0.4); Lymphocytes Absolute Auto 1.7 X10*3/uL (1.2-4.9); Lymphocytes Percent Auto 15.6 % (20-40); Mean Corpuscular HGB Conc 33.1 g/dl (31.0-35.0); Mean Corpuscular Hemoglobin 29.1 pg (27.0-33.0); Mean Corpuscular Volume 87.7 fL (80.0-98.0); Mean Platelet Volume 10.3 fL (9.4-12.3); Monocytes Absolute Auto 0.6 X10*3/uL (0.1-1.2); Monocytes Percent Auto 5.3 % (2-11); Neutrophils Absolute Auto 8.5 x10*3/uL (2.0-8.3); Platelet Count 217 X10*3/uL (160-400); Red Blood Count 3.99 X10*6/uL (4.20-5.50); White Blood Count 11.2 X10*3/uL (4.8-10.8)
[2022-03-19 15:51] LABS: Glucose 1 Hour PP 50gm Dose 114 mg/dL (60-140)
[2022-03-19 16:01] LABS: Alanine Aminotransferase 10 U/L (0-31); Albumin Level 3.4 g/dL (3.5-5.0); Alkaline Phosphatase 105 U/L (39-117); Anion Gap 10 (12-20); Aspartate Amino Transferase 17 U/L (5-31); Bilirubin Total 0.3 mg/dL (0.0-1.0); Blood Urea Nitrogen 6 mg/dL (9-16); Calcium 8.6 mg/dL (8.4-10.2); Carbon Dioxide 22 mmol/L (22-29); Chloride 106 mmol/L (96-108); Estimated Glomerular Filt Rate > 60; Glucose Random 116 mg/dL (60-115); Iron 34 mcg/dL (30-160); Percent Iron Saturation 6 % (15-50); Potassium 3.3 mmol/L (3.3-5.1); Sodium 135 mmol/L (135-145); Total Iron Binding Capacity 538 mcg/dL (228-428); Total Protein 6.4 g/dL (6.5-8.0); Unsaturated Iron Binding 504 ug/dL
[2022-03-19 16:21] LABS: TSH reflex Free T4 0.85 uIU/mL (0.32-4.0)
[2022-03-19 16:31] LABS: Folate 14.5 ng/mL (> or = 4.0); Vitamin B12 241 pg/mL (200-900)
[2022-03-24 13:00] LABS: Vitamin D 25-OH, D2 <4 ng/mL; Vitamin D 25-OH, D3 24 ng/mL; Vitamin D 25-OH, Total 24 ng/mL (30-100)
== END 2022-03-19 13:01 | disposition home or self-care (01) ==
LOC: HO.LAB 13:00
PROVIDERS: Nurse Practitioner Acute Care; PCP Physician Assistant; Visit Provider Advanced Practice Midwife
DX: O26.893 Other specified pregnancy related conditions, third trimester (principal); O99.343 Other mental disorders complicating pregnancy, third trimester; M54.50 Low back pain, unspecified; R12 Heartburn; F32.A Depression, unspecified; Z79.899 Other long term (current) drug therapy; Z3A.31 31 weeks gestation of pregnancy; Z29.13 Encounter for prophylactic Rho(D) immune globulin; Z67.91 Unspecified blood type, Rh negative
CPT/HCPCS: 36415; 80053; 82306; 82607; 82746; 83540; 84443; 85025; 86850; 96372; 99212

== ENCOUNTER → 2022-04-02 12:47 | Outpatient (BNVA) | payer OTHER, MEDICAID, SELFPAY | PROVIDERS: Visit Provider Obstetrics & Gynecology | DX: Z03.74 Encounter for suspected problem with fetal growth ruled out (principal); Z3A.33 33 weeks gestation of pregnancy | CPT/HCPCS: 99212 ==

== ENCOUNTER 2022-04-05 12:31 | Outpatient (REF) | payer OTHER, MEDICAID, SELFPAY ==
--- NOTE | ~2022-04-05 | US_ITS ---
EXAMINATION: OBSTETRICAL ULTRASOUND, Follow up HISTORY: 27-year-old at the 33.3 weeks of gestation Size date discrepancy COMPARISON: 01/18/2022 TECHNIQUE: Real time transabdominal imaging with color and M-mode Doppler. PRESENTATION: Vertex PLACENTA LOCATION: Anterior without previa AMNIOTIC FLUID: NEDRA 17.4 cm MEASUREMENTS: 1. Biparietal Diameter: 8.0 cm; 32.1 wks 2. Head Circumference: 29.4 cm; 32.4 wks 3. Abdominal Circumference: 28.0 cm; 32.1 wks 4. Femur Length: 6.33 cm; 32.6 wks 5. Heart Rate: 146 beats per minute WEIGHT: EFW: 1959 grams (4 lbs 5 oz) -- 15 %. BIOPHYSICAL PROFILE: Motion: 2 Tone: 2 Breathin Amniotic Fluid: 2 Total score: 06/24 GESTATIONAL AGE: 1. Established GA: 33.3 wks 2. GA from AUA: 32.3 wks ESTIMATED DATE OF DELIVERY: 1. Established ARCHIE: 05/21/2022 2. ARCHIE from AUA: 05/28/2022 US/US OB follow up IMPRESSION: 1. A single active fetus is in vertex presentation 2. Size equals dates 3. BPP 06/24 4. AFV: Within normal limits Thank you very much for this referral. I reviewed today's findings. We also discussed the limitations of ultrasound and estimating weights. The EFW is appropriate for this gestational age. The BPP score and the amniotic fluid volume are reassuring. No further ultrasound has been scheduled. Total time 20 minutes. The time spent was devoted to counseling the patient about the disease and diagnosis, coordinating care including reviewing her records, pertinent lab data and studies, as well as discussing diagnostic evaluation and workup, plan therapeutic interventions and future disposition of care. This includes any additional research needed to obtain further information in formulating the plan of care of this patient. This note was generated with a voice recognition program. Please excuse any errors which may have been overlooked during my review of this note. Sometimes these errors may affect the content or meaning of a given sentence.
== END 2022-04-05 12:32 | disposition home or self-care (01) ==
LOC: HO.US 12:31
PROVIDERS: Visit Provider Obstetrics & Gynecology
DX: Z34.93 Encounter for supervision of normal pregnancy, unspecified, third trimester (principal); Z3A.33 33 weeks gestation of pregnancy
CPT/HCPCS: 76816

== ENCOUNTER 2022-04-10 13:34 | Outpatient (REF) | payer OTHER, MEDICAID, SELFPAY ==
[2022-04-11 11:16] LABS: BV Int Neg Control Negative (Negative); BV Int Pos Control Positive (Positive)
[2022-04-11 13:39] LABS: CT PCR NOT DETECTED (Not Detect.); NG PCR NOT DETECTED (Not Detect.)
== END 2022-04-10 13:35 | disposition home or self-care (01) ==
LOC: HO.LAB 13:34
PROVIDERS: PCP Physician Assistant; Visit Provider Advanced Practice Midwife
DX: O36.8190 Decreased fetal movements, unspecified trimester, not applicable or unspecified (principal); O26.899 Other specified pregnancy related conditions, unspecified trimester; R10.2 Pelvic and perineal pain; O21.9 Vomiting of pregnancy, unspecified; Z3A.34 34 weeks gestation of pregnancy
CPT/HCPCS: 81003; 87081; 87147; 87480; 87491; 87510; 87591; 87660; 99212

== ENCOUNTER 2022-04-18 10:04 | Outpatient (REF) | payer OTHER, MEDICAID, SELFPAY | END 2022-04-18 10:05 | disposition home or self-care (01) | LOC: HO.LAB 10:04 | PROVIDERS: Visit Provider Obstetrics & Gynecology | DX: Z34.93 Encounter for supervision of normal pregnancy, unspecified, third trimester (principal); Z3A.36 36 weeks gestation of pregnancy | CPT/HCPCS: 87081; 87147; 99212 ==

== ENCOUNTER → 2022-04-25 15:20 | Outpatient (BNVA) | payer OTHER, MEDICAID, SELFPAY | PROVIDERS: PCP Physician Assistant; Visit Provider Advanced Practice Midwife | DX: O21.2 Late vomiting of pregnancy (principal); O36.5930 Maternal care for other known or suspected poor fetal growth, third trimester, not applicable or unspecified; Z3A.37 37 weeks gestation of pregnancy | CPT/HCPCS: 81003; 99212 ==

== ENCOUNTER 2022-05-03 11:23 | Outpatient (REF) | payer OTHER, MEDICAID, SELFPAY ==
--- NOTE | ~2022-05-03 | US_ITS ---
EXAMINATION: OBSTETRICAL ULTRASOUND, Follow up HISTORY: 27-year-old at the 37.3 weeks of gestation Size date discrepancy COMPARISON: 04/05/2022 TECHNIQUE: Real time transabdominal imaging with color and M-mode Doppler. PRESENTATION: Vertex PLACENTA LOCATION: Anterior without previa AMNIOTIC FLUID: NEDRA 12.2 MEASUREMENTS: 1. Biparietal Diameter: 8.4 cm; 34.0 wks 2. Head Circumference: 32.3 cm; 36.4 wks 3. Abdominal Circumference: 31.3 cm; 35.2 wks 4. Femur Length: 7.0 cm; 35.6 wks 5. Heart Rate: 133 beats per minute WEIGHT: EFW: 2656 grams (5 lbs 14 oz) -- 12 %. BIOPHYSICAL PROFILE: Motion: 2 Tone: 2 Breathin Amniotic Fluid: 2 Total score: 8/8 UA Doppler: S/D3.0 GESTATIONAL AGE: 1. Established GA: 37.3 wks 2. GA from AUA: 35.3 wks ESTIMATED DATE OF DELIVERY: 1. Established ARCHIE: 05/21/2022 2. ARCHIE from AUA: 06/04/2022 US/US OB velocimetry umbilical ar IMPRESSION: 1. A single active fetus is seen in vertex presentation. 2. Size equals dates, EFW corresponds to 12th percentile. 3. Reassuring biophysical profile and the amniotic fluid volume 4. Normal UA Doppler I reviewed today's findings as well as the limitations of ultrasound and estimating weights. Although the 12th percentile EFW is on the plantar end of the growth curve, there does not appear to be other sonographic stigmata for placental insufficiency. I recommend weekly nonstress test and biophysical profile, followed by a repeat the interval growth in approximately 2 weeks. (Scheduled) Thank you very much for this referral. Total time 30 minutes. The time spent was devoted to counseling the patient about the disease and diagnosis, coordinating care including reviewing her records, pertinent lab data and studies, as well as discussing diagnostic evaluation and workup, plan therapeutic interventions and future disposition of care. This includes any additional research needed to obtain further information in formulating the plan of care of this patient. This note was generated with a voice recognition program. Please excuse any errors which may have been overlooked during my review of this note. Sometimes these errors may affect the content or meaning of a given sentence.
== END 2022-05-03 11:24 | disposition home or self-care (01) ==
LOC: HO.US 11:23
PROVIDERS: Visit Provider Advanced Practice Midwife
DX: O36.5930 Maternal care for other known or suspected poor fetal growth, third trimester, not applicable or unspecified (principal); Z3A.37 37 weeks gestation of pregnancy
CPT/HCPCS: 76816; 76820

== ENCOUNTER → 2022-05-07 15:15 | Outpatient (BNVA) | payer OTHER, MEDICAID, SELFPAY | PROVIDERS: PCP Physician Assistant; Visit Provider Advanced Practice Midwife | DX: O36.5930 Maternal care for other known or suspected poor fetal growth, third trimester, not applicable or unspecified (principal); Z3A.38 38 weeks gestation of pregnancy | CPT/HCPCS: 99212 ==

== ENCOUNTER 2022-05-10 11:23 | Outpatient (REF) | payer OTHER, MEDICAID, SELFPAY ==
--- NOTE | ~2022-05-10 | US_ITS ---
EXAMINATION: US OBSTETRICAL (BIOPHYSICAL PROFILE) CLINICAL INFORMATION: 27-year-old at 20.3 weeks of gestation FGR COMPARISON: 05/03/2022 TECHNIQUE: Biophysical profile is performed over 30 minutes with assessment of breathing, gross body movement, tone, and qualitative amniotic fluid volume. FINDINGS: POSITION: Cephalic PLACENTA: Anterior without previa AMNIOTIC FLUID INDEX: 12.9 cm CARDIAC ACTIVITY: 150 beats per minute BIOPHYSICAL PROFILE: Motion: 2 Tone: 2 Breathin Amniotic Fluid: 2 The total biophysical score is 8/8 UA Doppler: S/D2.1 US/US OB velocimetry umbilical ar IMPRESSION: 1. Single intrauterine gestation in vertex position. 2. Reassuring BPP and NEDRA 3. Normal SD ratio in the UA. The biometry from last week was not repeated today. I informed her that the testing is reassuring. The before meals was less than 10th percentile. Patient states that her ARCHIE is 05/16/2022. However her first trimester ultrasound confirmed her LMP based ARCHIE of 05/20/2022. Suggest planning for delivery between 39-40 weeks of gestation. Thank you for allowing me to participate in her care. Total time 30 minutes. The time spent was devoted to counseling the patient about the disease and diagnosis, coordinating care including reviewing her records, pertinent lab data and studies, as well as discussing diagnostic evaluation and workup, plan therapeutic interventions and future disposition of care. This includes any additional research needed to obtain further information in formulating the plan of care of this patient. This note was generated with a voice recognition program. Please excuse any errors which may have been overlooked during my review of this note. Sometimes these errors may affect the content or meaning of a given sentence.
--- NOTE | ~2022-05-10 | US_ITS ---
EXAMINATION: US OBSTETRICAL (BIOPHYSICAL PROFILE) CLINICAL INFORMATION: 27-year-old at 20.3 weeks of gestation FGR COMPARISON: 05/03/2022 TECHNIQUE: Biophysical profile is performed over 30 minutes with assessment of breathing, gross body movement, tone, and qualitative amniotic fluid volume. FINDINGS: POSITION: Cephalic PLACENTA: Anterior without previa AMNIOTIC FLUID INDEX: 12.9 cm CARDIAC ACTIVITY: 150 beats per minute BIOPHYSICAL PROFILE: Motion: 2 Tone: 2 Breathin Amniotic Fluid: 2 The total biophysical score is 8/8 UA Doppler: S/D2.1 US/US OB biophysical profile IMPRESSION: 1. Single intrauterine gestation in vertex position. 2. Reassuring BPP and NEDRA 3. Normal SD ratio in the UA. The biometry from last week was not repeated today. I informed her that the testing is reassuring. The before meals was less than 10th percentile. Patient states that her ARCHIE is 05/16/2022. However her first trimester ultrasound confirmed her LMP based ARCHIE of 05/20/2022. Suggest planning for delivery between 39-40 weeks of gestation. Thank you for allowing me to participate in her care. Total time 30 minutes. The time spent was devoted to counseling the patient about the disease and diagnosis, coordinating care including reviewing her records, pertinent lab data and studies, as well as discussing diagnostic evaluation and workup, plan therapeutic interventions and future disposition of care. This includes any additional research needed to obtain further information in formulating the plan of care of this patient. This note was generated with a voice recognition program. Please excuse any errors which may have been overlooked during my review of this note. Sometimes these errors may affect the content or meaning of a given sentence.
== END 2022-05-10 11:24 | disposition home or self-care (01) ==
LOC: HO.US 11:23
PROVIDERS: Visit Provider Advanced Practice Midwife
DX: O36.5930 Maternal care for other known or suspected poor fetal growth, third trimester, not applicable or unspecified (principal)
CPT/HCPCS: 76819; 76820

== ENCOUNTER 2022-06-26 13:51 | Outpatient (REF) | payer OTHER, MEDICAID, SELFPAY ==
[2022-06-26 18:20] LABS: CT PCR NOT DETECTED (Not Detect.); NG PCR NOT DETECTED (Not Detect.)
== END 2022-06-26 13:52 | disposition home or self-care (01) ==
LOC: HO.LAB 13:51
PROVIDERS: PCP Physician Assistant; Visit Provider Obstetrics & Gynecology
DX: Z39.2 Encounter for routine postpartum follow-up (principal); N93.9 Abnormal uterine and vaginal bleeding, unspecified; Z30.430 Encounter for insertion of intrauterine contraceptive device
CPT/HCPCS: 58300; 81025; 87491; 87591; J7298

== ENCOUNTER 2022-07-01 13:49 | Outpatient (REF) | payer OTHER, MEDICAID, SELFPAY ==
[2022-07-01 14:33] LABS: Hemoglobin 11.9 g/dl (12.0-16.0); Mean Corpuscular HGB Conc 32.2 g/dl (31.0-35.0); Mean Corpuscular Hemoglobin 27.4 pg (27.0-33.0); Mean Corpuscular Volume 85.3 fL (80.0-98.0); Mean Platelet Volume 10.6 fL (9.4-12.3); Platelet Count 313 X10*3/uL (160-400); Red Blood Count 4.34 X10*6/uL (4.20-5.50); Red Cell Distribution Width 15.9 % (11.0-16.0); White Blood Count 7.4 X10*3/uL (4.8-10.8)
[2022-07-01 14:53] LABS: Anion Gap 13 (12-20); Blood Urea Nitrogen 12 mg/dL (9-16); Calcium 8.9 mg/dL (8.4-10.2); Carbon Dioxide 24 mmol/L (22-29); Chloride 106 mmol/L (96-108); Estimated Glomerular Filt Rate > 60; Glucose Random 89 mg/dL (60-115); Iron 127 mcg/dL (30-160); Percent Iron Saturation 32 % (15-50); Potassium 4.2 mmol/L (3.3-5.1); Sodium 139 mmol/L (135-145); Total Iron Binding Capacity 397 mcg/dL (228-428); Unsaturated Iron Binding 270 ug/dL
[2022-07-01 15:15] LABS: Vitamin D 25-OH Total 40.7 ng/mL (>30)
[2022-07-01 15:16] LABS: HCG Quantitative < 2 mIU/mL; TSH reflex Free T4 0.95 uIU/mL (0.32-4.0)
== END 2022-07-01 13:50 | disposition home or self-care (01) ==
LOC: HO.LAB 13:49
PROVIDERS: PCP Physician Assistant; Visit Provider Obstetrics & Gynecology
DX: N93.9 Abnormal uterine and vaginal bleeding, unspecified (principal); D50.9 Iron deficiency anemia, unspecified; R53.83 Other fatigue; E87.6 Hypokalemia; E55.9 Vitamin D deficiency, unspecified
CPT/HCPCS: 36415; 80048; 82306; 83540; 84443; 84702; 85027

== ENCOUNTER 2023-01-23 02:48 | Emergency (ER) | payer OTHER, MEDICAID, SELFPAY ==
[2023-01-23 02:54] VITALS: BP 111/66; PULSE 134; RESP 16; BMI 27.6
--- NOTE | 2023-01-23 02:58 | ED_ITS ---
HPI - Seizure General Chief Complaint: Seizure Stated Complaint: Seizures Time Seen by Provider: 01/23/23 02:57 Source: patient Mode of arrival: ambulatory Limitations: no limitations History of Present Illness HPI Narrative: Patient with history of severe anxiety having some cold symptoms for last 2 days did home COVID test which was positive today prior to arrival patient had jerking movement with increased anxiety no tongue bite no fall no head injury no incontinence patient remembers jerking movements Related Data Previous Rx's Medication Instructions Recorded vitamin with calcium 1 tab PO DAILY #90 tabs 02/12/22 no.72-iron 27 mg-folic acid 1 mg tablet ( Vitamins Plus Low Iron) acetic acid 2 % ear solution 4 drp otic (ear) right TID PRN ear 06/11/22 itch 15 days #15 mL citalopram 10 mg tablet 15 mg PO DAILY 90 days #135 tabs 12/02/22 Allergies Allergy/AdvReac Type Severity Reaction Status Date / Time Anesthetics - Amide Type - Allergy Severe Seizure Verified 06/26/22 14:25 Select A latex [LATEX] Allergy Mild RASH Verified 06/26/22 14:25 From [facility] Allergy Unknown SEIZURES Uncoded 06/26/22 14:25 onion Allergy Unknown f Uncoded 06/26/22 14:25 Review of Systems Review of Systems: Yes all other systems are reviewed and are negative PMFSH Past Medical History Medical History Anemia Anxiety COVID-19 Lumbar back pain Tourettes syndrome Surgical History No pertinent past surgical history Family History Family History Father No problems noted. Mother No problems noted. Maternal Grandmother Diabetes mellitus Maternal Grandfather Diabetes mellitus Paternal Grandmother Diabetes mellitus Paternal Grandfather No problems noted. 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 Oriented X3. No acute distress. Anxious+ head movements++ Eyes: PERRLA, No Nystagmus ENT: Pharynx normal. Oral Mucosa moist Neck: Normal inspection. Neck supple. CVS: Normal heart rate and rhythm. Pulses normal. Respiratory: No respiratory distress. Equal air entry bilateral, no wheezing/rales/rhonchi Abdomen: Soft and nontender. Bowel sounds are present, no mass palpable, no CVA tenderness Skin: Skin warm and dry. Normal skin color. Normal skin turgor. Extremities: No lower extremity edema. No calf tenderness Neuro: Oriented X 3. No motor deficit. No sensory deficit.No cerebellar signs , cranial nerves II-XII intact Medications Administered Discontinued Medications Generic Name Dose Route Start Last Admin Trade Name Freq PRN Reason Stop Dose Admin Lorazepam 1 mg 01/23/23 03:03 01/23/23 03:09 Lorazepam 2 Mg/Ml Vial IVPUSH 01/23/23 03:04 1 mg STAT STA Administration Medical Decision Making Medical Decision Making [facility] Narrative: Patient with anxiety-induced the workup negative discharge patient home on and Ativan advised to follow with PCP with COVID positive without hypoxia Lab Data [facility] Lab Attestation statement: I reviewed the patient's lab results. 01/23/23 02:59 01/23/23 02:59 Labs: Lab Results 01/23/23 01/23/23 Range/Units 02:59 02:59 WBC 8.7 (4.8-10.8) X10*3/uL RBC 4.38 (4.20-5.50) X10*6/uL Hgb 13.0 (12.0-16.0) g/dl Hct 38.0 (37.0-47.0) % MCV 86.8 (80.0-98.0) fL MCH 29.7 (27.0-33.0) pg MCHC 34.2 (31.0-35.0) g/dl RDW 12.2 (11.0-16.0) % Plt Count 216 D (160-400) X10*3/uL MPV 10.3 (9.4-12.3) fL Immature Gran % (Auto) 0.5 H (0.0-0.4) % Neut % (Auto) 90.0 H (45-73) % Lymph % (Auto) 2.9 L (20-40) % Burnett % (Auto) 5.5 (2-11) % Eos % (Auto) 0.6 (0-4) % Baso % (Auto) 0.5 (0-2) % Lymph # (Auto) 0.3 L (1.2-4.9) X10*3/uL Burnett # (Auto) 0.5 (0.1-1.2) X10*3/uL Eos # (Auto) 0.1 (0.0-0.4) X10*3/uL Baso # (Auto) 0.0 (0.0-0.2) X10*3/uL Abs Immat Gran (auto) 0.04 H (0.00-0.03) X10*3/uL Absolute Neuts (auto) 7.8 (2.0-8.3) x10*3/uL Absolute Nucleated RBC 0.000 (0.0-0.012) X10*3/uL Nucleated RBC % (auto) 0.0 (0.0-0.2) /100WBC Sodium 138 (135-145) mmol/L Potassium 3.5 (3.3-5.1) mmol/L Chloride 106 (96-108) mmol/L Carbon Dioxide 21 L (22-29) mmol/L Anion Gap 15 (12-20) BUN 11 (9-16) mg/dL Creatinine 0.69 (0.5-1.4) mg/dL Estim Creat Clear Calc 117.4 Estimated GFR > 60 Random Glucose 119 H (60-115) mg/dL Calcium 8.9 (8.4-10.2) mg/dL Total Bilirubin 0.4 (0.0-1.0) mg/dL Direct Bilirubin < 0.2 (0.0-0.5) mg/dL AST 16 (5-31) U/L ALT 15 (0-31) U/L Alkaline Phosphatase 62 (39-117) U/L Total Protein 7.0 (6.5-8.0) g/dL Albumin 4.4 (3.5-5.0) g/dL Lipase 17 (8-78) U/L Ethyl Alcohol < 10 mg/dL Discharge Plan Discharge Clinical Impression: Psychogenic nonepileptic seizure Prescriptions: No Action citalopram 10 mg tablet 15 mg PO DAILY 90 Days Qty: 135 0RF Rx Instructions: 15 mg PO daily; acetic acid 2 % solution 4 drp otic (ear) right TID PRN (Reason: ear itch) 15 Days Qty: 15 0RF Mirena 20 mcg/24 hours (7 yrs) 52 mg intrauterine device 1 device intrauterine ONCE Qty: 1 0RF Vitamin Plus Low Iron 27 mg iron- 1 mg tablet 1 tab PO DAILY Qty: 90 5RF
[2023-01-23 03:04] LABS: Basophils Percent Auto 0.5 % (0-2); Eosinophils Absolute Auto 0.1 X10*3/uL (0.0-0.4); Eosinophils Percent Auto 0.6 % (0-4); Imm Gran Abs Auto 0.04 X10*3/uL (0.00-0.03); Imm Gran Pct Auto 0.5 % (0.0-0.4); Lymphocytes Absolute Auto 0.3 X10*3/uL (1.2-4.9); Lymphocytes Percent Auto 2.9 % (20-40); MANUAL DIFF FLAG NO; Mean Corpuscular HGB Conc 34.2 g/dl (31.0-35.0); Mean Corpuscular Hemoglobin 29.7 pg (27.0-33.0); Mean Corpuscular Volume 86.8 fL (80.0-98.0); Mean Platelet Volume 10.3 fL (9.4-12.3); Monocytes Absolute Auto 0.5 X10*3/uL (0.1-1.2); Monocytes Percent Auto 5.5 % (2-11); Neutrophils Absolute Auto 7.8 x10*3/uL (2.0-8.3); Platelet Count 216 X10*3/uL (160-400); Red Blood Count 4.38 X10*6/uL (4.20-5.50); Red Cell Distribution Width 12.2 % (11.0-16.0); White Blood Count 8.7 X10*3/uL (4.8-10.8)
[2023-01-23] MEDS: LORazepam 2 MG/ML VIAL 1 MG IVPUSH (03:09)
[2023-01-23 03:32] LABS: Alanine Aminotransferase 15 U/L (0-31); Albumin Level 4.4 g/dL (3.5-5.0); Alkaline Phosphatase 62 U/L (39-117); Anion Gap 15 (12-20); Aspartate Amino Transferase 16 U/L (5-31); Bilirubin Direct < 0.2 mg/dL (0.0-0.5); Bilirubin Total 0.4 mg/dL (0.0-1.0); Blood Urea Nitrogen 11 mg/dL (9-16); Calcium 8.9 mg/dL (8.4-10.2); Carbon Dioxide 21 mmol/L (22-29); Chloride 106 mmol/L (96-108); Creatinine Clr Calc Pharmacy 117.4; Estimated Glomerular Filt Rate > 60; Ethanol < 10 mg/dL; Glucose Random 119 mg/dL (60-115); Lipase 17 U/L (8-78); Potassium 3.5 mmol/L (3.3-5.1); Sodium 138 mmol/L (135-145)
[2023-01-23 05:00] VITALS: BP 114/62; PULSE 120; RESP 18; TEMP 37.4; O2SAT 98
== END 2023-01-23 05:33 | disposition home or self-care (01) ==
PROVIDERS: Emergency Provider Internal Medicine; PCP Physician Assistant
DX: R56.9 Unspecified convulsions (principal); F41.1 Generalized anxiety disorder; F43.0 Acute stress reaction; Z79.899 Other long term (current) drug therapy
CPT/HCPCS: 36415; 80053; 82077; 82248; 83690; 85025; 96374; 99283; 99284; J2060

== ENCOUNTER 2023-04-16 08:39 | Emergency (ER) | payer MEDICAID, SELFPAY ==
--- NOTE | ~2023-04-16 | CT_ITS ---
EXAMINATION: CT HEAD WITHOUT CONTRAST CLINICAL INFORMATION: Mental status change COMPARISON: Previous head CT August 2020 TECHNIQUE: Contiguous axial imaging was performed from the skull base to vertex without intravenous administration of contrast. This CT examination was performed using dose optimization techniques as appropriate, variously including the following: *Automated exposure control *Adjustment of mA and/or kV according to patient size (this includes techniques or standardized protocols for targeted exams where dose is matched to indication/reason for exam; i.e. extremities or head) *Use of iterative reconstruction technique DLP: 726 mGy-cm FINDINGS: There is no evidence of an extra-axial collection. There is no evidence of intra-axial or extra-axial hemorrhage. The ventricles and extra-axial CSF spaces are appropriate. Rodríguez-white matter differentiation is normal. No mass, mass effect or infarct. No skull fracture or bone lesion. Visualized paranasal sinuses, mastoid air cells and middle ears are clear. CT/CT head/brain wo IV con IMPRESSION: Unremarkable exam.
--- NOTE | 2023-04-16 08:47 | ED.GENADULT ---
HPI - General Adult General Chief complaint: Seizure Stated complaint: SEIZURE FOR 30 MIN @ WORK PER EMS Time Seen by Provider: 04/16/23 08:47 Source: EMS, RN notes reviewed and old records reviewed Mode of arrival: EMS Limitations: altered mental status History of Present Illness HPI narrative: Patient is a 28-year-old female with history of KRYSTIAN, Tourettes, iron deficiency anemia presenting with seizure-like activity at work lasting approximately thirty minutes. Patient's mother is at bedside and reports that patient has a history of seizures for approximately one year which started while giving . Mother states that patient has not been evaluated by neurology. Patient is awake but currently nonverbal. 09:20 Patient is now awake and alert. She states that she was at work and began to feel tingling to her left arm and felt lightheaded. She notified her central office operator supervisor who had patient sit on a chair. Patient reports that she ate some Cheez-its and drank some juice. She states that a short time later she felt herself beginning to have a seizure and was assisted to the floor by her central office operator supervisor. She states that she is aware that she continued to have a seizure for the next hour until arrival in the ED. She reports that her seizures began last year while giving to her child at [facility]. She denies evaluation by neurology at that time and was not instructed to follow up with a neurologist. She is not on any anticonvulsant medications. She states that the only other time she has had this seizure-like activity was in January while being hospitalized for Covid. Reports that at times she dreams that she is having a seizure and is unsure if she is actually having a seizure at those times. She denies any incontinence. She denies any head, neck, or back pain. She complains of right arm pain and feeling lightheaded. She denies any chest pain, shortness of breath. Denies abdominal pain, nausea. Denies recent fevers. MD complaint: seizure-like activity Onset (ago): minute(s) Related Data Previous Rx's Medication Instructions Recorded vitamin with calcium 1 tab PO DAILY #90 tabs 02/12/22 no.72-iron 27 mg-folic acid 1 mg tablet ( Vitamins Plus Low Iron) acetic acid 2 % ear solution 4 drp otic (ear) right TID PRN ear 06/11/22 itch 15 days #15 mL citalopram 10 mg tablet 15 mg PO DAILY 90 days #135 tabs 12/02/22 benzonatate 200 mg capsule 200 mg PO TID PRN cough #30 caps 01/23/23 lorazepam 1 mg tablet (Ativan) 1 mg PO BEDTIME PRN anxiety #7 tabs 01/23/23 Allergies Allergy/AdvReac Type Severity Reaction Status Date / Time Anesthetics - Amide Type - Allergy Severe Seizure Verified 06/26/22 14:25 Select A latex [LATEX] Allergy Mild RASH Verified 06/26/22 14:25 From [facility] Allergy Unknown SEIZURES Uncoded 06/26/22 14:25 onion Allergy Unknown f Uncoded 06/26/22 14:25 Review of Systems Review of Systems: Yes Unobtainable due to mental status PMFSH Past Medical History Medical History Anemia Anxiety COVID-19 Lumbar back pain Tourettes syndrome Surgical History No pertinent past surgical history Family History Family History Father No problems noted. Mother No problems noted. Maternal Grandmother Diabetes mellitus Maternal Grandfather Diabetes mellitus Paternal Grandmother Diabetes mellitus Paternal Grandfather No problems noted. 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 Blood pressure normal. Heart rate slightly tachycardic. Respiratory rate normal. Temperature normal. Oxygen saturation normal. Const Other: On arrival patient awake, nonverbal, PERRL, loud, forceful respirations, no tonic-clonic movements, VS WNL. General: no acute distress, alert and awake Nutritional Appearance: average body habitus Orientation/consciousness: patient oriented x3 Limitations: no limitations HENMT Head: Yes normal to inspection, Yes normocephalic and Yes atraumatic Ears: hearing grossly normal bilaterally, external ears normal and TM's normal bilaterally General nose exam: Normal external nose present and Normal nares present Face and sinus: Yes face symmetric Mouth: Normal oral and palatal mucosa present, tongue normal (no evidence of trauma), oropharynx normal and moist mucous membranes Throat: Yes posterior oropharynx normal and Yes uvula midline Neck Neck: Yes normal visual inspection, Yes full ROM, Yes no lymphadenopathy, Yes no meningeal signs and Yes supple Chest Chest palpation & inspection: normal inspection of the chest Resp Effort & Inspection: normal respiratory effort and able to speak in complete sentences Auscultation: clear to auscultation bilaterally Cardio Rate: regular rate Rhythm: regular rhythm Heart sounds: S1 normal heart sound present and S2 normal heart sound present GI Other: No visible bowel incontinence Inspection: Yes normal to inspection Palpation (GI): Soft to palpation and nontender Auscultation: normal bowel sounds Other: No visible incontinence of bladder Back/Spine/Pelvis Cervical Spine: No Cervical spine tenderness Skin General skin exam: no rashes or lesions noted Neuro General: patient oriented x3, no meningeal signs and CN's II-XI intact bilaterally Cognition (Neuro): normal cognition Motor exam (neuro): 5/5 motor strength present throughout Sensory Exam: Normal double simultaneous stimulation for sensation Extrem General: Yes normal to inspection, Yes full ROM and Yes capillary refill normal Right upper extremity: normal to inspection, full ROM and normal capillary refill Psych Appearance: grossly normal Mental Status: mental status grossly normal Speech and movement: Normal speech and movement present Attitude: cooperative Course Course Course Narrative: 11:34 Labs unremarkable, no further seizure-like activity thus far. Awaiting results of CT. 13:44 CT head unremarkable. Patient has not had any further episodes of seizure-like activity while in the ED. Feel patient is stable for discharge home. Referring patient to neurology for further evaluation. Advised patient that she should not drive until cleared by neuro. All results discussed with patient and all questions answered, patient agreeable with plan. Medications Administered Discontinued Medications Generic Name Dose Route Start Last Admin Trade Name Radha PRN Reason Stop Dose Admin Lorazepam 2 mg 04/16/23 09:01 04/16/23 09:05 Lorazepam 2 Mg/Ml Vial IVPUSH 04/16/23 09:02 2 mg ONCE ONE Administration Medical Decision Making Medical Decision Making [facility] Narrative: Patient is a 28-year-old female with history of KRYSTIAN, Tourettes, iron deficiency anemia presenting with seizure-like activity at work lasting approximately thirty minutes. On initial exam patient was awake but nonresponsive to verbal, breathing loudly and forcefully without any tonic-clonic movements. After administration of lorazepam patient awake, alert, A+Ox3, normal neurological exam without focal deficits, RRR, LS CTA, ABD SNT, 5/5 equal strength all extremities. Given reported history and physical exam findings concern for seizure versus pseudoseizure or acute anxiety. Less likely intoxication as symptoms improved immediately following administration of lorazepam. Will check labs and UA to assess for electrolyte abnormalities, infection. Will obtain CT head and observe patient for any additional seizure-like activity. Differential Diagnosis Differential Diagnoses: The differential diagnosis associated with the presentation includes As above. Admission/Observation Consideration of admission/observation: Escalation of care including admission/observation considered Lab Data [facility] Lab Attestation statement: I reviewed the patient's lab results. 04/16/23 08:54 04/16/23 08:54 Labs: Lab Results 04/16/23 04/16/23 04/16/23 Range/Units 08:54 08:54 08:54 WBC 6.7 (4.8-10.8) X10*3/uL RBC 4.55 (4.20-5.50) X10*6/uL Hgb 13.1 (12.0-16.0) g/dl Hct 39.5 (37.0-47.0) % MCV 86.8 (80.0-98.0) fL MCH 28.8 (27.0-33.0) pg MCHC 33.2 (31.0-35.0) g/dl RDW 12.4 (11.0-16.0) % Plt Count 263 (160-400) X10*3/uL MPV 10.6 (9.4-12.3) fL Immature Gran % (Auto) 0.4 (0.0-0.4) % Neut % (Auto) 60.5 (45-73) % Lymph % (Auto) 28.1 (20-40) % Foster % (Auto) 6.3 (2-11) % Eos % (Auto) 3.7 (0-4) % Baso % (Auto) 1.0 (0-2) % Lymph # (Auto) 1.9 (1.2-4.9) X10*3/uL Foster # (Auto) 0.4 (0.1-1.2) X10*3/uL Eos # (Auto) 0.3 (0.0-0.4) X10*3/uL Baso # (Auto) 0.1 (0.0-0.2) X10*3/uL Abs Immat Gran (auto) 0.03 (0.00-0.03) X10*3/uL Absolute Neuts (auto) 4.1 (2.0-8.3) x10*3/uL Absolute Nucleated RBC 0.000 (0.0-0.012) X10*3/uL Nucleated RBC % (auto) 0.0 (0.0-0.2) /100WBC Sodium 139 (135-145) mmol/L Potassium 3.6 (3.3-5.1) mmol/L Chloride 108 (96-108) mmol/L Carbon Dioxide 23 (22-29) mmol/L Anion Gap 12 (12-20) BUN 16 (9-16) mg/dL Creatinine 0.68 (0.5-1.4) mg/dL Estim Creat Clear Calc 131.0 Estimated GFR > 60 Random Glucose 93 (60-115) mg/dL Lactic Acid 2.0 (0.5-2.0) mmol/L Calcium 9.2 (8.4-10.2) mg/dL Magnesium 1.9 (1.6-2.6) mg/dL Total Bilirubin 0.4 (0.0-1.0) mg/dL AST 13 (5-31) U/L ALT 11 (0-31) U/L Alkaline Phosphatase 53 (39-117) U/L Total Protein 6.9 (6.5-8.0) g/dL Albumin 4.1 (3.5-5.0) g/dL Beta HCG, Quant mIU/mL Urine Color Urine Appearance Urine pH (5.0-9.0) Ur Specific [place] (1.005-1.025) Urine Protein (Neg-Trace) mg/dL Urine Glucose (UA) (Negative) mg/dL Urine Ketones (Negative) mg/dL Urine Blood (Negative) Urine Nitrite (Negative) Ur Leukocyte Esterase (Negative) Urine RBC (0-2) /HPF Urine WBC (0-5) /HPF Ur Squamous Epith Cells (0-2) /HPF Urine Bacteria (None Seen) Hyaline Casts (0-2) /LPF Urine Opiates Screen (Not Detect) Urine Fentanyl Screen (Not Detect) Ur Barbiturates Screen (Not Detect) Ur Phencyclidine Scrn (Not Detect) Ur Amphetamines Screen (Not Detect) U Benzodiazepines Scrn (Not Detect) Urine Cocaine Screen (Not Detect) U Marijuana (THC) Screen (Not Detect) Ethyl Alcohol mg/dL 04/16/23 04/16/23 04/16/23 Range/Units 09:40 09:40 09:40 WBC (4.8-10.8) X10*3/uL RBC (4.20-5.50) X10*6/uL Hgb (12.0-16.0) g/dl Hct (37.0-47.0) % MCV (80.0-98.0) fL MCH (27.0-33.0) pg MCHC (31.0-35.0) g/dl RDW (11.0-16.0) % Plt Count (160-400) X10*3/uL MPV (9.4-12.3) fL Immature Gran % (Auto) (0.0-0.4) % Neut % (Auto) (45-73) % Lymph % (Auto) (20-40) % Foster % (Auto) (2-11) % Eos % (Auto) (0-4) % Baso % (Auto) (0-2) % Lymph # (Auto) (1.2-4.9) X10*3/uL Foster # (Auto) (0.1-1.2) X10*3/uL Eos # (Auto) (0.0-0.4) X10*3/uL Baso # (Auto) (0.0-0.2) X10*3/uL Abs Immat Gran (auto) (0.00-0.03) X10*3/uL Absolute Neuts (auto) (2.0-8.3) x10*3/uL Absolute Nucleated RBC (0.0-0.012) X10*3/uL Nucleated RBC % (auto) (0.0-0.2) /100WBC Sodium (135-145) mmol/L Potassium (3.3-5.1) mmol/L Chloride (96-108) mmol/L Carbon Dioxide (22-29) mmol/L Anion Gap (12-20) BUN (9-16) mg/dL Creatinine (0.5-1.4) mg/dL Estim Creat Clear Calc Estimated GFR Random Glucose (60-115) mg/dL Lactic Acid (0.5-2.0) mmol/L Calcium (8.4-10.2) mg/dL Magnesium (1.6-2.6) mg/dL Total Bilirubin (0.0-1.0) mg/dL AST (5-31) U/L ALT (0-31) U/L Alkaline Phosphatase (39-117) U/L Total Protein (6.5-8.0) g/dL Albumin (3.5-5.0) g/dL Beta HCG, Quant < 2 mIU/mL Urine Color Yellow Urine Appearance Clear Urine pH 6.0 (5.0-9.0) Ur Specific [place] <= 1.005 (1.005-1.025) Urine Protein Negative (Neg-Trace) mg/dL Urine Glucose (UA) Negative (Negative) mg/dL Urine Ketones Negative (Negative) mg/dL Urine Blood Negative (Negative) Urine Nitrite Negative (Negative) Ur Leukocyte Esterase Trace H (Negative) Urine RBC 0-2 (0-2) /HPF Urine WBC 0-5 (0-5) /HPF Ur Squamous Epith Cells 3-5 (0-2) /HPF Urine Bacteria None Seen (None Seen) Hyaline Casts 0-2 (0-2) /LPF Urine Opiates Screen (Not Detect) Urine Fentanyl Screen (Not Detect) Ur Barbiturates Screen (Not Detect) Ur Phencyclidine Scrn (Not Detect) Ur Amphetamines Screen (Not Detect) U Benzodiazepines Scrn (Not Detect) Urine Cocaine Screen (Not Detect) U Marijuana (THC) Screen (Not Detect) Ethyl Alcohol < 10 mg/dL 04/16/23 Range/Units 09:40 WBC (4.8-10.8) X10*3/uL RBC (4.20-5.50) X10*6/uL Hgb (12.0-16.0) g/dl Hct (37.0-47.0) % MCV (80.0-98.0) fL MCH (27.0-33.0) pg MCHC (31.0-35.0) g/dl RDW (11.0-16.0) % Plt Count (160-400) X10*3/uL MPV (9.4-12.3) fL Immature Gran % (Auto) (0.0-0.4) % Neut % (Auto) (45-73) % Lymph % (Auto) (20-40) % Foster % (Auto) (2-11) % Eos % (Auto) (0-4) % Baso % (Auto) (0-2) % Lymph # (Auto) (1.2-4.9) X10*3/uL Foster # (Auto) (0.1-1.2) X10*3/uL Eos # (Auto) (0.0-0.4) X10*3/uL Baso # (Auto) (0.0-0.2) X10*3/uL Abs Immat Gran (auto) (0.00-0.03) X10*3/uL Absolute Neuts (auto) (2.0-8.3) x10*3/uL Absolute Nucleated RBC (0.0-0.012) X10*3/uL Nucleated RBC % (auto) (0.0-0.2) /100WBC Sodium (135-145) mmol/L Potassium (3.3-5.1) mmol/L Chloride (96-108) mmol/L Carbon Dioxide (22-29) mmol/L Anion Gap (12-20) BUN (9-16) mg/dL Creatinine (0.5-1.4) mg/dL Estim Creat Clear Calc Estimated GFR Random Glucose (60-115) mg/dL Lactic Acid (0.5-2.0) mmol/L Calcium (8.4-10.2) mg/dL Magnesium (1.6-2.6) mg/dL Total Bilirubin (0.0-1.0) mg/dL AST (5-31) U/L ALT (0-31) U/L Alkaline Phosphatase (39-117) U/L Total Protein (6.5-8.0) g/dL Albumin (3.5-5.0) g/dL Beta HCG, Quant mIU/mL Urine Color Urine Appearance Urine pH (5.0-9.0) Ur Specific [place] (1.005-1.025) Urine Protein (Neg-Trace) mg/dL Urine Glucose (UA) (Negative) mg/dL Urine Ketones (Negative) mg/dL Urine Blood (Negative) Urine Nitrite (Negative) Ur Leukocyte Esterase (Negative) Urine RBC (0-2) /HPF Urine WBC (0-5) /HPF Ur Squamous Epith Cells (0-2) /HPF Urine Bacteria (None Seen) Hyaline Casts (0-2) /LPF Urine Opiates Screen Not Detected (Not Detect) Urine Fentanyl Screen Not Detected (Not Detect) Ur Barbiturates Screen Not Detected (Not Detect) Ur Phencyclidine Scrn Not Detected (Not Detect) Ur Amphetamines Screen Not Detected (Not Detect) U Benzodiazepines Scrn Not Detected (Not Detect) Urine Cocaine Screen Not Detected (Not Detect) U Marijuana (THC) Screen Not Detected (Not Detect) Ethyl Alcohol mg/dL Independent Interpretation I performed an independent interpretation of an: EKG and CT Scan Interpretation: EKG: normal sinus rhythm, rate 92bpm, normal MS and QT intervals, no evidence of STEMI; I independently reviewed the CT scan and agree with the radiologist's interpretation. Radiology Impression Discussion of test interpretation with radiology: I have reviewed the radiologist's reading. Radiologist Impression: FINDINGS: There is no evidence of an extra-axial collection. There is no evidence of intra-axial or extra-axial hemorrhage. The ventricles and extra-axial CSF spaces are appropriate. Rodríguez-white matter differentiation is normal. No mass, mass effect or infarct. No skull fracture or bone lesion. Visualized paranasal sinuses, mastoid air cells and middle ears are clear. ? CT/CT head/brain wo IV con IMPRESSION: Unremarkable exam. Independent Historian Clinical information obtained from an independent historian. History obtained from or confirmed by: Parent (mother) External Record Review External record reviewed: Inpatient record, Office record and Outpatient record Discharge Plan Discharge Clinical Impression: Seizure-like activity Patient Disposition: Home, Self-Care Instructions: Nonepileptic Seizures (DC) Additional Instructions: You were evaluated in the emergency department today for seizure-like activity. Your symptoms improved with medication. Your evaluation, including labs, urinalysis, and head CT were unremarkable. Do not drive until your are cleared by a physician. You are being referred to neurology for further evaluation of your symptoms. Please call their office to schedule an appointment within two days. Return to the emergency department if you experience recurrent seizures, difficulty walking or moving your arms or legs, slurred speech, difficulty with normal activities, abnormal behavior, vision changes, or for any other concerning symptoms. Prescriptions: No Action citalopram 10 mg tablet 15 mg PO DAILY 90 Days Qty: 135 0RF Rx Instructions: 15 mg PO daily; lorazepam [Ativan] 1 mg tablet 1 mg PO BEDTIME PRN (Reason: anxiety) Qty: 7 0RF benzonatate 200 mg capsule 200 mg PO TID PRN (Reason: cough) Qty: 30 0RF acetic acid 2 % solution 4 drp otic (ear) right TID PRN (Reason: ear itch) 15 Days Qty: 15 0RF Mirena 20 mcg/24 hours (7 yrs) 52 mg intrauterine device 1 device intrauterine ONCE Qty: 1 0RF Vitamin Plus Low Iron 27 mg iron- 1 mg tablet 1 tab PO DAILY Qty: 90 5RF Referrals: [facility] [place] [facility] [Provider Group] Stand Alone Forms: Work/School Release
[2023-04-16 08:49] VITALS: BP 128/82; BP 136/86; PULSE 103; PULSE 106; RESP 12; TEMP 37.3; O2SAT 98; BMI 25.4
[2023-04-16] MEDS: LORazepam 2 MG/ML VIAL IVPUSH (09:05)
[2023-04-16 09:07] LABS: MANUAL DIFF FLAG NO
[2023-04-16 09:08] LABS: Basophils Absolute Auto 0.1 X10*3/uL (0.0-0.2); Eosinophils Absolute Auto 0.3 X10*3/uL (0.0-0.4); Eosinophils Percent Auto 3.7 % (0-4); Hematocrit 39.5 % (37.0-47.0); Hemoglobin 13.1 g/dl (12.0-16.0); Imm Gran Abs Auto 0.03 X10*3/uL (0.00-0.03); Imm Gran Pct Auto 0.4 % (0.0-0.4); Lymphocytes Absolute Auto 1.9 X10*3/uL (1.2-4.9); Lymphocytes Percent Auto 28.1 % (20-40); Mean Corpuscular HGB Conc 33.2 g/dl (31.0-35.0); Mean Corpuscular Hemoglobin 28.8 pg (27.0-33.0); Mean Corpuscular Volume 86.8 fL (80.0-98.0); Mean Platelet Volume 10.6 fL (9.4-12.3); Monocytes Absolute Auto 0.4 X10*3/uL (0.1-1.2); Monocytes Percent Auto 6.3 % (2-11); Neutrophils Absolute Auto 4.1 x10*3/uL (2.0-8.3); Neutrophils Percent Auto 60.5 % (45-73); Platelet Count 263 X10*3/uL (160-400); Red Blood Count 4.55 X10*6/uL (4.20-5.50); Red Cell Distribution Width 12.4 % (11.0-16.0); White Blood Count 6.7 X10*3/uL (4.8-10.8)
[2023-04-16 09:23] LABS: Alanine Aminotransferase 11 U/L (0-31); Albumin Level 4.1 g/dL (3.5-5.0); Alkaline Phosphatase 53 U/L (39-117); Anion Gap 12 (12-20); Aspartate Amino Transferase 13 U/L (5-31); Bilirubin Total 0.4 mg/dL (0.0-1.0); Blood Urea Nitrogen 16 mg/dL (9-16); Calcium 9.2 mg/dL (8.4-10.2); Carbon Dioxide 23 mmol/L (22-29); Chloride 108 mmol/L (96-108); Estimated Glomerular Filt Rate > 60; Glucose Random 93 mg/dL (60-115); Magnesium 1.9 mg/dL (1.6-2.6); Potassium 3.6 mmol/L (3.3-5.1); Sodium 139 mmol/L (135-145); Total Protein 6.9 g/dL (6.5-8.0)
--- NOTE | 2023-04-16 09:25 | ECG_ITS ---
Test Reason : seizure Blood Pressure : / mmHG Vent. Rate : 092 BPM Atrial Rate : 092 BPM P-R Int : 142 ms QRS Dur : 086 ms QT Int : 358 ms P-R-T Axes : 037 086 016 degrees QTc Int : 442 ms Normal sinus rhythm Normal ECG When compared with ECG of 29-AUG-2020 08:53, No significant change was found Referred By: Madelyn Cardozo Electronically Signed By:MICHAELA ANDREWS MD
[2023-04-16 09:54] LABS: Appearance Urine Clear; Color Urine Yellow; Glucose Urine UA Negative (Negative); Leukocyte Esterase Urine Trace (Negative); Nitrite Urine Negative (Negative); Specific Gravity - Urine <= 1.005 (1.005-1.025); UMIC TRIGGER UACC YES; Urine Blood Negative (Negative); Urine Ketones Negative (Negative); Urine Protein Negative (Neg-Trace)
[2023-04-16 09:59] LABS: Bacteria Urine None Seen (None Seen); Hyaline Casts Urine 0-2 /LPF (0-2); RBC Urine 0-2 /HPF (0-2); WBC Urine 0-5 /HPF (0-5)
[2023-04-16 10:03] LABS: Amphetamine Screen Urine Not Detected (Not Detect); Barbiturates, Urine Not Detected (Not Detect); Benzodiazepines Screen Urine Not Detected (Not Detect); Cannabinoid Screen Urine Not Detected (Not Detect); Cocaine Screen Urine Not Detected (Not Detect); Fentanyl, urine Not Detected (Not Detect); Opiate Screen Urine Not Detected (Not Detect); Phencyclidine Screen Urine Not Detected (Not Detect)
[2023-04-16 10:13] LABS: Ethanol < 10 mg/dL
[2023-04-16 10:31] LABS: HCG Quantitative < 2 mIU/mL
== END 2023-04-16 14:11 | disposition home or self-care (01) ==
PROVIDERS: Registered Nurse Emergency; Emergency Provider Emergency Medicine; PCP Physician Assistant
DX: R56.9 Unspecified convulsions (principal); F95.2 Tourette's disorder; Z79.899 Other long term (current) drug therapy
CPT/HCPCS: 36415; 70450; 80053; 80307; 81001; 83605; 83735; 84702; 85025; 93005; 96374; 99283; 99284; J2060

== ENCOUNTER 2023-04-17 23:22 | Emergency (ER) | payer MEDICAID, SELFPAY ==
[2023-04-17 23:35] VITALS: BMI 71.2
[2023-04-17 23:46] VITALS: BP 123/77; PULSE 85; RESP 17; TEMP 36.8; O2SAT 98
[2023-04-17 23:48] LABS: Basophils Absolute Auto 0.1 X10*3/uL (0.0-0.2); Basophils Percent Auto 0.8 % (0-2); Eosinophils Absolute Auto 0.4 X10*3/uL (0.0-0.4); Eosinophils Percent Auto 4.4 % (0-4); Hematocrit 37.2 % (37.0-47.0); Hemoglobin 12.5 g/dl (12.0-16.0); Imm Gran Abs Auto 0.03 X10*3/uL (0.00-0.03); Imm Gran Pct Auto 0.3 % (0.0-0.4); Lymphocytes Absolute Auto 3.4 X10*3/uL (1.2-4.9); Lymphocytes Percent Auto 38.2 % (20-40); MANUAL DIFF FLAG NO; Mean Corpuscular HGB Conc 33.6 g/dl (31.0-35.0); Mean Corpuscular Hemoglobin 28.8 pg (27.0-33.0); Mean Corpuscular Volume 85.7 fL (80.0-98.0); Mean Platelet Volume 10.3 fL (9.4-12.3); Monocytes Absolute Auto 0.7 X10*3/uL (0.1-1.2); Monocytes Percent Auto 7.7 % (2-11); Neutrophils Absolute Auto 4.4 x10*3/uL (2.0-8.3); Neutrophils Percent Auto 48.6 % (45-73); Platelet Count 271 X10*3/uL (160-400); Red Blood Count 4.34 X10*6/uL (4.20-5.50); Red Cell Distribution Width 12.4 % (11.0-16.0)
[2023-04-18 00:11] LABS: Anion Gap 13 (12-20); Blood Urea Nitrogen 17 mg/dL (9-16); Calcium 9.5 mg/dL (8.4-10.2); Carbon Dioxide 21 mmol/L (22-29); Chloride 108 mmol/L (96-108); Creatinine Clr Calc Pharmacy 225.4; Estimated Glomerular Filt Rate > 60; Glucose Random 114 mg/dL (60-115); Potassium 3.5 mmol/L (3.3-5.1); Sodium 138 mmol/L (135-145)
[2023-04-18] MEDS: levETIRAcetam 500 MG/5 ML VIAL 1000 MG IV (00:24)
--- NOTE | 2023-04-18 00:31 | PC.NURSE ---
pt assessed, iv keprra infusing ivpb per pharmacy
--- NOTE | 2023-04-18 00:37 | ED_ITS ---
HPI - Seizure General Chief Complaint: Seizure Stated Complaint: Multiple Seizures last one 45 mins ago Time Seen by Provider: 04/17/23 23:36 Source: patient Mode of arrival: ambulatory Limitations: no limitations History of Present Illness HPI Narrative: Patient came here with seizure generalized tonic-clonic.. Eleven months ago patient had 3 seizures not started on any medication, not seen any neurologist, after that 3 months she had another seizure and then for last 2 days having multiple seizures today she had 4 seizures 3 at home and 1 on arrival in the ER witnessed by me patient had GTC seizure tonic clonic lasted for 5 minutes with postictal confusion patient has not seen any neurologist yet no EEG done scheduled to see neurologist next week Seizure History: Yes Related Data Previous Rx's Medication Instructions Recorded vitamin with calcium 1 tab PO DAILY #90 tabs 02/12/22 no.72-iron 27 mg-folic acid 1 mg tablet ( Vitamins Plus Low Iron) acetic acid 2 % ear solution 4 drp otic (ear) right TID PRN ear 06/11/22 itch 15 days #15 mL citalopram 10 mg tablet 15 mg PO DAILY 90 days #135 tabs 12/02/22 benzonatate 200 mg capsule 200 mg PO TID PRN cough #30 caps 01/23/23 lorazepam 1 mg tablet (Ativan) 1 mg PO BEDTIME PRN anxiety #7 tabs 01/23/23 levetiracetam 500 mg tablet 500 mg PO BID #60 tabs 04/18/23 (Keppra) Allergies Allergy/AdvReac Type Severity Reaction Status Date / Time Anesthetics - Amide Type - Allergy Severe Seizure Verified 04/17/23 23:35 Select A latex [LATEX] Allergy Mild RASH Verified 04/17/23 23:35 From [facility] Allergy Unknown SEIZURES Uncoded 04/17/23 23:35 onion Allergy Unknown f Uncoded 04/17/23 23:35 Review of Systems Review of Systems: Yes all other systems are reviewed and are negative [facility] Past Medical History Medical History Anemia Anxiety COVID-19 Lumbar back pain Tourettes syndrome Surgical History No pertinent past surgical history Family History Family History Father No problems noted. Mother No problems noted. Maternal Grandmother Diabetes mellitus Maternal Grandfather Diabetes mellitus Paternal Grandmother Diabetes mellitus Paternal Grandfather No problems noted. 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 Oral Mucosa moist Neck: Normal inspection. Neck supple. CVS: Normal heart rate and rhythm. Pulses normal. Respiratory: No respiratory distress. Equal air entry bilateral, no wheezing/rales/rhonchi Abdomen: Soft and nontender. Bowel sounds are present, no mass palpable, Skin: Skin warm and dry. Normal skin color. Normal skin turgor. Extremities: No lower extremity edema. No calf tenderness Neuro: Postictal: No motor deficit. No sensory deficit.No cerebellar signs , cranial nerves II-XII intact Medications Administered Discontinued Medications Generic Name Dose Route Start Last Admin Trade Name Freq PRN Reason Stop Dose Admin Levetiracetam 1,000 mg 04/17/23 23:37 04/18/23 00:24 Levetiracetam 500 Mg/5 Ml Vial IV 04/17/23 23:38 1,000 mg NOW STA Administration Medical Decision Making Medical Decision Making MDM Narrative: Patient with tonic-clonic seizure multiple episode in last 1 year getting more frequent lasting longer. Likely patient has epilepsy. Patient previous CT scan of the head was negative labs are stable not on Wellbutrin not traveled of no sleep deprivation was given Keppra in the ER will continue on Keppra patient has a neurology appointment scheduled next week patient's CT scan was negative on 04/15 Lab Data [facility] Lab Attestation statement: I reviewed the patient's lab results. 04/17/23 23:44 04/17/23 23:44 Labs: Lab Results 04/17/23 04/17/23 Range/Units 23:44 23:44 WBC 9.0 (4.8-10.8) X10*3/uL RBC 4.34 (4.20-5.50) X10*6/uL Hgb 12.5 (12.0-16.0) g/dl Hct 37.2 (37.0-47.0) % MCV 85.7 (80.0-98.0) fL MCH 28.8 (27.0-33.0) pg MCHC 33.6 (31.0-35.0) g/dl RDW 12.4 (11.0-16.0) % Plt Count 271 (160-400) X10*3/uL MPV 10.3 (9.4-12.3) fL Immature Gran % (Auto) 0.3 (0.0-0.4) % Neut % (Auto) 48.6 (45-73) % Lymph % (Auto) 38.2 (20-40) % [place] % (Auto) 7.7 (2-11) % Eos % (Auto) 4.4 H (0-4) % Baso % (Auto) 0.8 (0-2) % Lymph # (Auto) 3.4 (1.2-4.9) X10*3/uL [place] # (Auto) 0.7 (0.1-1.2) X10*3/uL Eos # (Auto) 0.4 (0.0-0.4) X10*3/uL Baso # (Auto) 0.1 (0.0-0.2) X10*3/uL Abs Immat Gran (auto) 0.03 (0.00-0.03) X10*3/uL Absolute Neuts (auto) 4.4 (2.0-8.3) x10*3/uL Absolute Nucleated RBC 0.000 (0.0-0.012) X10*3/uL Nucleated RBC % (auto) 0.0 (0.0-0.2) /100WBC Sodium 138 (135-145) mmol/L Potassium 3.5 (3.3-5.1) mmol/L Chloride 108 (96-108) mmol/L Carbon Dioxide 21 L (22-29) mmol/L Anion Gap 13 (12-20) BUN 17 H (9-16) mg/dL Creatinine 0.69 (0.5-1.4) mg/dL Estim Creat Clear Calc 225.4 Estimated GFR > 60 Random Glucose 114 (60-115) mg/dL Calcium 9.5 (8.4-10.2) mg/dL Discharge Plan Discharge Clinical Impression: Epileptic seizure Patient Disposition: Home, Self-Care Instructions: Recurrent Seizures in Adults (ED) Additional Instructions: Take Keppra 500 mg twice daily See neurologist next week as scheduled Report to ER if recurrence of seizures Avoid driving until cleared by a neurologist Prescriptions: New levetiracetam [Keppra] 500 mg tablet 500 mg PO BID Qty: 60 0RF No Action citalopram 10 mg tablet 15 mg PO DAILY 90 Days Qty: 135 0RF Rx Instructions: 15 mg PO daily; lorazepam [Ativan] 1 mg tablet 1 mg PO BEDTIME PRN (Reason: anxiety) Qty: 7 0RF benzonatate 200 mg capsule 200 mg PO TID PRN (Reason: cough) Qty: 30 0RF acetic acid 2 % solution 4 drp otic (ear) right TID PRN (Reason: ear itch) 15 Days Qty: 15 0RF Mirena 20 mcg/24 hours (7 yrs) 52 mg intrauterine device 1 device intrauterine ONCE Qty: 1 0RF Vitamin Plus Low Iron 27 mg iron- 1 mg tablet 1 tab PO DAILY Qty: 90 5RF Referrals: Tio Eldridge MD [Physician] - 1 week (Epilepsy)
--- NOTE | 2023-04-18 01:49 | PC.NURSE ---
no seizures witnessed at d/c
== END 2023-04-18 01:49 | disposition home or self-care (01) ==
PROVIDERS: Emergency Provider Internal Medicine; PCP Physician Assistant
DX: G40.909 Epilepsy, unspecified, not intractable, without status epilepticus (principal); Z79.899 Other long term (current) drug therapy
CPT/HCPCS: 36415; 80048; 85025; 96374; 99284; J1953

== ENCOUNTER 2023-04-18 14:09 | Emergency (ER) | payer OTHER, MEDICAID, SELFPAY ==
[2023-04-18 14:18] VITALS: BP 138/77; PULSE 100; RESP 18; TEMP 36.7; O2SAT 98; BMI 27.4
--- NOTE | 2023-04-18 14:19 | ED_ITS ---
HPI - General Adult General Chief complaint: General Medical Stated complaint: seizure, SOB , nausea Time Seen by Provider: 04/18/23 14:42 Source: patient Mode of arrival: ambulatory Limitations: no limitations History of Present Illness HPI narrative: Patient with recent seizures increasing in frequency. State she cant take keppra because it causes Keppra. At the moment she does not want to stay for blood and seizure medication. Onset (ago): day(s) Severity: mild Related Data Previous Rx's Medication Instructions Recorded vitamin with calcium 1 tab PO DAILY #90 tabs 02/12/22 no.72-iron 27 mg-folic acid 1 mg tablet ( Vitamins Plus Low Iron) acetic acid 2 % ear solution 4 drp otic (ear) right TID PRN ear 06/11/22 itch 15 days #15 mL citalopram 10 mg tablet 15 mg PO DAILY 90 days #135 tabs 12/02/22 benzonatate 200 mg capsule 200 mg PO TID PRN cough #30 caps 01/23/23 lorazepam 1 mg tablet (Ativan) 1 mg PO BEDTIME PRN anxiety #7 tabs 01/23/23 levetiracetam 500 mg tablet 500 mg PO BID #60 tabs 04/18/23 (Keppra) Allergies Allergy/AdvReac Type Severity Reaction Status Date / Time Anesthetics - Amide Type - Allergy Severe Seizure Verified 04/17/23 23:35 Select A latex [LATEX] Allergy Mild RASH Verified 04/17/23 23:35 [facility] Allergy Unknown SEIZURES Uncoded 04/17/23 23:35 onion Allergy Unknown f Uncoded 04/17/23 23:35 Review of Systems 2 Review of Systems: Yes all other systems are reviewed and are negative [facility] Past Medical History Medical History Anemia Anxiety COVID-19 Lumbar back pain Tourettes syndrome Surgical History No pertinent past surgical history Family History Family History Father No problems noted. Mother No problems noted. Maternal Grandmother Diabetes mellitus Maternal Grandfather Diabetes mellitus Paternal Grandmother Diabetes mellitus Paternal Grandfather No problems noted. 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 Cognitive needs: No Hearing needs: No Vision needs: No Physical Exam ED Vital Signs: Vital Signs - 24 hr 04/18/23 14:18 Temperature 98.1 F Pulse Rate 100 Respiratory Rate 18 Blood Pressure 138/77 Pulse Oximetry 98 Oxygen Delivery Method Room Air BMI result Body Mass Index 27.4 Const General: healthy appearing Nutritional Appearance: average body habitus Orientation/consciousness: oriented to person and patient oriented x3 Limitations: no limitations HENMT Head: Yes normal to inspection Ears: external ears normal General nose exam: Normal external nose present Mouth: Normal oral and palatal mucosa present and oropharynx normal Throat: Yes posterior oropharynx normal Eyes General: appearance normal, both eyes and all related structures Neck Neck: Yes normal visual inspection Chest Chest palpation & inspection: normal inspection of the chest Resp Auscultation: clear to auscultation bilaterally Cardio Jugular venous distension: no JVD Rate: regular rate Rhythm: regular rhythm Heart sounds: S1 normal heart sound present and S2 normal heart sound present GI Inspection: Yes normal to inspection Palpation (GI): Soft to palpation, nontender and No hepatosplenomegaly present Auscultation: normal bowel sounds General: Yes no CVA tenderness Back/Spine/Pelvis Back: no CVA tenderness Skin General skin exam: no rashes or lesions noted Neuro General: oriented to person and patient oriented x3 Cranial nerves: Yes CN's II-XII intact bilaterally Motor exam (neuro): 5/5 motor strength present throughout Extrem General: Yes normal to inspection Psych Appearance: grossly normal Course Course Course Narrative: RME performed by Veronica Mchugh PA-C. Patient is a 28 year old assigned female at presenting to the emergency department with seizures. Labs ordered. Patient placed back in the waiting room pending room availability and results. Reevaluation(s) Reevaluation #1: patient at this time is non focal, she does not want to wait for blood and not interested in switching to dilatin, will dc home to follow up with Dr. Eldridge Time: 16:27 Medical Decision Making Differential Diagnosis Differential Diagnoses: The differential diagnosis associated with the presentation includes (seizure, electrolyte abnormality, anxiety) Admission/Observation Consideration of admission/observation: Escalation of care including admission/observation considered (In a person with multiple seizure today admission was considered) Independent Historian Clinical information obtained from an independent historian. History obtained from or confirmed by: Parent External Record Review External record reviewed: Outpatient record and Prior outpatient radiology Discharge Plan Discharge Clinical Impression: Epileptic seizure Patient Disposition: Home, Self-Care Instructions: Epilepsy (ED), Recurrent Seizures in Adults (ED) Prescriptions: No Action citalopram 10 mg tablet 15 mg PO DAILY 90 Days Qty: 135 0RF Rx Instructions: 15 mg PO daily; lorazepam [Ativan] 1 mg tablet 1 mg PO BEDTIME PRN (Reason: anxiety) Qty: 7 0RF benzonatate 200 mg capsule 200 mg PO TID PRN (Reason: cough) Qty: 30 0RF levetiracetam [Keppra] 500 mg tablet 500 mg PO BID Qty: 60 0RF acetic acid 2 % solution 4 drp otic (ear) right TID PRN (Reason: ear itch) 15 Days Qty: 15 0RF Mirena 20 mcg/24 hours (7 yrs) 52 mg intrauterine device 1 device intrauterine ONCE Qty: 1 0RF Vitamin Plus Low Iron 27 mg iron- 1 mg tablet 1 tab PO DAILY Qty: 90 5RF Referrals: Esa Dorado PA-C [Primary Care Provider] - 3 days Stand Alone Forms: Work/School Release
== END 2023-04-18 16:42 | disposition home or self-care (01) ==
PROVIDERS: Emergency Provider Emergency Medicine; PCP Physician Assistant
DX: G40.909 Epilepsy, unspecified, not intractable, without status epilepticus (principal)
CPT/HCPCS: 99282

== ENCOUNTER 2023-05-01 11:12 | Outpatient (REF) | payer MEDICAID, SELFPAY ==
[2023-05-01 11:58] LABS: Appearance Urine Cloudy; Color Urine Dark Yellow; Glucose Urine UA Negative (Negative); Leukocyte Esterase Urine Negative (Negative); Nitrite Urine Negative (Negative); PH 5.5 (5.0-9.0); Specific Gravity - Urine 1.025 (1.005-1.025); Urine Blood Negative (Negative); Urine Ketones Trace mg/dL (Negative); Urine Protein Negative (Neg-Trace)
[2023-05-01 12:04] LABS: Anion Gap 11 (12-20); Blood Urea Nitrogen 11 mg/dL (9-16); Calcium 9.2 mg/dL (8.4-10.2); Carbon Dioxide 28 mmol/L (22-29); Chloride 105 mmol/L (96-108); Estimated Glomerular Filt Rate > 60; Glucose Fasting 93 mg/dL (60-99); Potassium 3.4 mmol/L (3.3-5.1); Sodium 141 mmol/L (135-145)
[2023-05-01 12:20] LABS: TSH reflex Free T4 1.23 uIU/mL (0.32-4.0)
[2023-05-01 12:35] LABS: Folate 16.7 ng/mL (> or = 4.0); Vitamin B12 835 pg/mL (200-900)
== END 2023-05-01 11:13 | disposition home or self-care (01) ==
LOC: HO.LAB 11:12
PROVIDERS: PCP Physician Assistant; Visit Provider Nurse Practitioner Family
DX: Z00.00 Encounter for general adult medical examination without abnormal findings (principal); Z13.1 Encounter for screening for diabetes mellitus; R35.0 Frequency of micturition
CPT/HCPCS: 36415; 80048; 81003; 82306; 82607; 82746; 84443

== ENCOUNTER 2024-03-12 19:37 | Emergency (ER) | payer MEDICAID, SELFPAY ==
[2024-03-12 20:00] VITALS: BP 122/81; PULSE 86; RESP 16; TEMP 36.7; O2SAT 100; BMI 25.6
--- NOTE | 2024-03-12 20:04 | ED_ITS ---
HPI - General Adult General Chief complaint: Ear Problems Stated complaint: ?Ear infection Time Seen by Provider: 03/12/24 20:04 Source: patient Mode of arrival: ambulatory Limitations: no limitations History of Present Illness HPI narrative: Patient is a 29 year old assigned female at with a history of anxiety presenting to the emergency department today with right ear pain. Patient states that over the last week she has had right ear pain, itching, and dizziness. Patient denies any lightheadedness, abdominal pain, nausea, vomiting, fever, chills, blurry vision, double vision, loss of vision, chest pain, difficulty breathing, shortness of breath, back pain, night sweats, pain with urination, increased urinary frequency, increased urinary urgency, blood in her urine or stool, syncope or a near syncopal episode, recent trauma or falls, bowel incontinence, bladder incontinence, bowel retention, bladder retention, or any other complaints at this time. Onset (ago): week(s) (1) Location: right (ear) Severity: mild Severity scale (1-10): 3 Relieving factors: none Exacerbating factors: none Associated symptoms: denies other symptoms Treatments prior to arrival: none Related Data Previous Rx's ?Medication ?Instructions ?Recorded citalopram 10 mg tablet 15 mg (1.5 x 10 mg) PO DAILY 90 12/02/22 days #135 tabs amoxicillin 875 mg tablet 875 mg PO BID 5 days #10 tabs 03/12/24 Allergies Allergy/AdvReac Type Severity Reaction Status Date / Time Anesthetics - Amide Type - Allergy Severe Seizure Verified 03/12/24 20:03 Select A latex [LATEX] Allergy Mild RASH Verified 03/12/24 20:03 levetiracetam [From Keppra] Allergy Chest Pain Verified 03/12/24 20:03 From [facility] Allergy Unknown SEIZURES Uncoded 04/25/23 16:05 onion Allergy Unknown f Uncoded 04/25/23 16:05 Review of Systems Constitutional: Constitutional: Reports no additional constitutional complaints, Denies chills, Denies fever(s) and Denies night sweats Eyes: Eyes: Reports no additional eye complaints, Denies blurry vision, Denies change in vision, Denies diplopia, Denies eye discharge, Denies loss of vision and Denies eye pain ENT: Reports dizziness Comments: right ear pain Cardiovascular: Cardiovascular: Reports no additional cardiovascular complaints, Denies chest pain, Denies lightheadedness, Denies Loss of Consciousness and Denies dyspnea Respiratory: Respiratory: Reports no additional respiratory complaints and Denies dyspnea Gastrointestinal: Gastrointestinal: Reports no additional gastrointestinal com plaints, Denies abdominal pain, Denies melena, Denies hematochezia, Denies change in bowel habits and Denies change in stool character Genitourinary: Genitourinary: Denies hematuria, Denies urinary frequency, Denies dysuria, Denies urinary incontinence, Denies urinary hesitancy and Denies urinary urgency Musculoskeletal: Musculoskeletal: Reports no additional musculoskeletal complaints, Denies numbness and Denies tingling Neurologic: Reports dizziness, Denies loss of vision, Denies numbness and Denies tingling Psychiatric: Psychiatric: Reports no additional psychiatric complaints Endocrine: Endocrine: Reports no additional endocrine complaints Hematologic/Lymphatic: Hematologic/Lymphatic: Reports no additional hematologic/lymphatic complaints Allergic/Immunologic: Allergic/Immunologic: Reports no additional allergic/immunologic complaints [facility] Past Medical History Attestation statement: The following information was validated with the patient. Source: old records reviewed and nursing notes reviewed Medical History Abnormal uterine bleeding Family planning state Otalgia of right ear [id number] fetus, third trimester Encounter for suspected problem with growth, ruled out Encounter for supervision of normal in third trimester Rh negative state in antepartum period Depression affecting Fatigue during Encounter for supervision of normal in second trimester Cerumen debris on tympanic membrane of both ears Supervision of normal first Positive urine test COVID-19 COVID-19 Anxiety Tourettes syndrome Anemia Lumbar back pain Surgical History No pertinent past surgical history Family History Family History Father No problems noted. Mother No problems noted. Maternal Grandmother Diabetes mellitus Maternal Grandfather Diabetes mellitus Paternal Grandmother Diabetes mellitus Paternal Grandfather No problems noted. 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 Cognitive needs: No Hearing needs: No Vision needs: No Physical Exam ED Vital Signs: Vital Signs - 24 hr 03/12/24 20:00 03/12/24 20:17 Temperature 98.0 F 98.0 F Pulse Rate 86 86 Respiratory Rate 16 16 Blood Pressure 122/81 122/81 Pulse Oximetry 100 100 Oxygen Delivery Method Room Air Room Air BMI result Body Mass Index 25.6 Const General: cooperative, no acute distress, alert and awake Nutritional Appearance: well nourished Orientation/consciousness: patient oriented x3 Limitations: no limitations HENMT Head: Yes normal to inspection and Yes atraumatic Ears: hearing grossly normal bilaterally, TM abnormal erythematous on the right and other (right ear canal erythematous) General nose exam: Normal external nose present, no nasal discharge noted and no epistaxis Face and sinus: Yes normal facial exam, No abrasion and No laceration Mouth: Normal oral and palatal mucosa present, no drooling and no muffled voice Eyes General: appearance normal, both eyes and all related structures Periorbital: periorbital findings normal Eyelids: Yes eyelids normal Conjunctivae: conjunctivae normal Pupils: Equal, round and reactive pupils present EOM: EOMs intact bilaterally Neck Neck: Yes normal visual inspection, Yes full ROM and Yes no lymphadenopathy Chest Chest palpation & inspection: normal inspection of the chest Resp Effort & Inspection: normal respiratory effort and able to speak in complete sentences GI Inspection: Yes normal to inspection Neuro General: patient oriented x3 and moves all extremities Cranial nerves: Yes Equal, round and reactive pupils present Cognition (Neuro): normal cognition Motor exam (neuro): 5/5 motor strength present throughout Sensory Exam: Normal double simultaneous stimulation for sensation Coordination: [id number] test normal Extrem General: Yes normal to inspection, Yes full ROM and Yes capillary refill normal Psych Appearance: grossly normal Mental Status: mental status grossly normal Affect: normal affect Attitude: cooperative Thought process: Normal thought process present Thought content: Normal thought content present Insight: Good insight present (Psych) Medical Decision Making Medical Decision Making MDM Narrative: Patient is a 29 year old assigned female at with a history of anxiety presenting to the emergency department today with right ear pain. Patient's physical exam was as noted in the physical exam portion of this note. I explained my physical exam findings to the patient. I answered all questions asked by the patient. I stressed the importance of the patient taking her medication as prescribed. I stressed the importance of the patient following up with her primary care provider. I stressed the importance of the patient returning to the emergency department immediately if her symptoms were to worsen or if she were to develop any dizziness, shortness of breath, difficulty breathi ng, chest pain, blurry vision, loss of vision, nausea, vomiting, abdominal pain, fever, chills, back pain, or any other complaints. Patient verbalized agreement and understanding with this treatment plan and discharge. Differential Diagnosis Differential Diagnoses: The differential diagnosis associated with the presentation includes Right otitis externa Right otitis media Viral illness Admission/Observation Consideration of admission/observation: Escalation of care including admission/observation considered Patient would have been admitted to the hospital had her clinical presentation warranted hospital admission. Prescription Management I considered prescription management with: Antibiotic (patient prescribed an antibiotic for OM and OE) Discharge Plan Discharge Clinical Impression: Otitis media, Otitis externa Patient Disposition: Home, Self-Care Instructions: Otitis Externa (DC), Ear Infection (ED) Additional Instructions: Follow up with your primary care provider. Return to the emergency department immediately if your symptoms worsen or if you develop any dizziness, shortness of breath, difficulty breathing, chest pain, blurry vision, loss of vision, nausea, vomiting, abdominal pain, fever, chills, back pain, or any other complaints. Prescriptions: New amoxicillin 875 mg tablet 875 mg PO BID 5 Days Qty: 10 0RF No Action citalopram 10 mg tablet 15 mg PO DAILY 90 Days Qty: 135 0RF Rx Instructions: 15 mg PO daily; Referrals: Esa Dorado PA-C [Primary Care Provider] - Stand Alone Forms: Work/School Release Interventions: ED Discharge Assessment Last Done: 03/12/24 20:17 Discharge Date/Time: 03/12/24 20:20 Print Language: Armenian
[2024-03-12 20:17] VITALS: BP 122/81; PULSE 86; RESP 16; TEMP 36.7; O2SAT 100
== END 2024-03-12 20:20 | disposition home or self-care (01) ==
PROVIDERS: Emergency Provider Internal Medicine; PCP Physician Assistant
DX: H66.91 Otitis media, unspecified, right ear (principal); H60.91 Unspecified otitis externa, right ear
CPT/HCPCS: 99282; 99283

== ENCOUNTER 2024-03-16 12:36 | Emergency (ER) | payer OTHER, MEDICAID, SELFPAY ==
--- NOTE | 2024-03-16 12:56 | ED.EAR ---
HPI - Ear Problem General Chief complaint: Upper Respiratory Symptoms Stated complaint: R Ear Infection Cold Symtpoms Time Seen by Provider: 03/16/24 14:46 Source: patient Mode of arrival: ambulatory Limitations: no limitations History of Present Illness HPI Narrative: 29-year-old female with a past medical history of seizure disorder and anxiety presents to the emergency department with complaints of bilateral ear pain and congestion. She reports that she was seen several days ago here in the emergency department and diagnosed with an ear infection. She states she was prescribed by mouth antibiotics and that she has 1 day remaining. She reports worsening right ear pain and a 2 day history of congestion and now left ear pain. She also reports eports right mastoid tenderness without erythema or fevers Pertinent positives and negatives discussed in HPI Related Data Previous Rx's ?Medication ?Instructions ?Recorded citalopram 10 mg tablet 15 mg (1.5 x 10 mg) PO DAILY 90 12/02/22 days #135 tabs amoxicillin 875 mg tablet 875 mg PO BID 5 days #10 tabs 03/12/24 ciprofloxacin 0.3 %-dexamethasone 4 drp otic (ear) right BID 7 days 03/16/24 0.1 % ear drops,suspension #7.5 mL Allergies Allergy/AdvReac Type Severity Reaction Status Date / Time Anesthetics - Amide Type - Allergy Severe Seizure Verified 03/16/24 12:59 Select A latex [LATEX] Allergy Mild RASH Verified 03/16/24 12:59 levetiracetam [From Keppra] Allergy Chest Pain Verified 03/16/24 12:59 From [facility] Allergy Unknown SEIZURES Uncoded 04/25/23 16:05 onion Allergy Unknown f Uncoded 04/25/23 16:05 Review of Systems Review of Systems: Yes all other systems are reviewed and are negative [facility] Past Medical History Medical History Abnormal uterine bleeding Family planning state Otalgia of right ear Vzbvr-mla-oevne fetus, third trimester Encounter for suspected problem with growth, ruled out Encounter for supervision of normal in third trimester Rh negative state in antepartum period Depression affecting Fatigue during Encounter for supervision of normal in second trimester Cerumen debris on tympanic membrane of both ears Supervision of normal first Positive urine test COVID-19 COVID-19 Anxiety Tourettes syndrome Anemia Lumbar back pain Surgical History No pertinent past surgical history Family History Family History Father No problems noted. Mother No problems noted. Maternal Grandmother Diabetes mellitus Maternal Grandfather Diabetes mellitus Paternal Grandmother Diabetes mellitus Paternal Grandfather No problems noted. 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 GENERAL APPEARANCE: A&0 x 4, generally well appearing, no acute distress HENMT: Normal to inspection, atraumatic, face symmetrical. Normal external ears, nose, and oropharynx clear. Right TM and canal erythematous EYE: PERRLA, EOM intact, structures appear normal NECK: Supple without stiffness or restricted ROM. HEART: Normal rate and regular rhythm, normal S1/S2, no M/R/G LUNGS: LS CTA, moving air well. Able to speak in complete sentences. No crackles, wheezes, or rhonchi auscultated BACK: No CVAT, no obvious deformity EXTREMITIES: Moving all extremities without difficulty. Normal capillary refill. NEUROLOGICAL: Alert and oriented, moving all 4 extremities with equal strength. CN not formally tested but appearing grossly intact. Observed to ambulate with normal gait. Cognition normal SKIN: Warm and dry without any lesions, rash, or visible sores Medical Decision Making Medical Decision Making MDM Narrative: Old records reviewed for previous imaging, lab studies, ECGs, and notes. Patient was assessed the emergency department with no acute distress or toxicity noted. Nasal serology negative for covid, flu, and RSV. Right TM and canal erythematous consistent with otitis externa. Ciprodex eardrops in the patient preferred pharmacy for further management. Patient educated to use ioxe-onr-bwfwpwl decongestants further management of symptoms and follow-up with her PCP in addition to ENT as needed. Patient is safe for discharge at this time with plan for wfvu-ljj-sahtotx Tylenol and/or NSAID such as ibuprofen or naproxen for fever/discomfort with dosing as per packaging. HPI, PE, diagnostics, and plan discussed with patient and family with no unanswered questions at this time. Strict return precautions given to return to the emergency department with new, worsening, or concerning emergent symptoms. Recommended to follow-up with there primary care provider in 24-48 hours for further treatment and management. Differential Diagnosis Differential Diagnoses: The differential diagnosis associated with the presentation includes but not limited to viral syndrome, mastoiditis, otitis externa, otitis media, sinusitis, sepsis, malignancy Lab Data Labs: Lab Results 03/16/24 Range/Units 13:02 Influenza Type A (PCR) NEGATIVE (Negative) Influenza Type B (PCR) NEGATIVE (Negative) RSV RNA Qual (PCR) NEGATIVE (Negative) SARS-CoV-2 RNA (RT-PCR) NEGATIVE (Negative) Discharge Plan Discharge Clinical Impression: Otitis externa Patient Disposition: Home, Self-Care Instructions: Otitis Externa (ED) Additional Instructions: Your seen in the emergency department for concerns for continued infection in your right ear. Your nasal swab showed no evidence of Covid, Flu, or RSV. Antibiotic ear drops that contain a steroid were sent to your preferred pharmacy. Please use as directed. It is recommended that you also use orax-qlw-mnfpkmu decongestants for further management of your symptoms. You are safe for discharge at this time with plan for management of fever or discomfort with henf-kvv-jjxeipl Tylenol and/or NSAID such as ibuprofen or naproxen with dosing as per packaging. Please return to the emergency department with new, worsening, or concerning emergent symptoms. Recommended to follow-up with your primary care provider in 24-48 hours for further treatment and management. Thank you for choosing [facility]. Prescriptions: New ciprofloxacin-dexamethasone 0.3-0.1 % drops,suspension 4 drp otic (ear) right BID 7 Days Qty: 7.5 0RF No Action citalopram 10 mg tablet 15 mg PO DAILY 90 Days Qty: 135 0RF Rx Instructions: 15 mg PO daily; amoxicillin 875 mg tablet 875 mg PO BID 5 Days Qty: 10 0RF Referrals: Esa Dorado PA-C [Primary Care Provider] - Stand Alone Forms: Work/School Release Print Language: Ukrainian
[2024-03-16 12:57] VITALS: BP 109/80; PULSE 97; RESP 18; TEMP 36.4; O2SAT 99; BMI 27.1
[2024-03-16 13:46] LABS: Influenza A PCR NEGATIVE (Negative); Influenza B PCR NEGATIVE (Negative); Resp Syncy Virus RNA Qual PCR NEGATIVE (Negative); SARS COV2 PCR INHOUSE NEGATIVE (Negative)
== END 2024-03-16 19:36 | disposition home or self-care (01) ==
PROVIDERS: Nurse Practitioner Family; Emergency Provider Student in an Organized Health Care Education/Training Program; PCP Physician Assistant
DX: H60.90 Unspecified otitis externa, unspecified ear (principal); G40.909 Epilepsy, unspecified, not intractable, without status epilepticus; Z03.818 Encounter for observation for suspected exposure to other biological agents ruled out
CPT/HCPCS: 0241U; 99281; 99283

== ENCOUNTER 2024-05-03 13:56 | Outpatient (AMB) | payer OTHER, SELFPAY ==
[2024-05-03 14:03] VITALS: BP 114/78; PULSE 88; O2SAT 99; BMI 26.7
--- NOTE | 2024-05-03 14:03 | A.OFFPC_ITS ---
Vital Signs 05/03/24 14:03 Height 5 ft 2 in Weight 146 lb BMI 26.7 BP 114/78 Blood Pressure Location Lt brachial Position Sitting Pulse 88 Pulse Source Pulse Oximeter Pulse Oximetry (%) 99 Oxygen Delivery Method Room Air Intake Visit Reasons: PE Intake Note: Patient is here today for a physical. Systems Support Officer Required: No Accompanied by: Self / Same As Patient Is last menstrual period known: Yes Last menstrual period: 04/12/24 Allergies Anesthetics - Amide Type - Select A Allergy (Severe, Verified 05/03/24 14:10) Seizure latex [LATEX] Allergy (Mild, Verified 05/03/24 14:10) RASH levetiracetam [From Keppra] Allergy (Verified 05/03/24 14:10) Chest Pain From [facility] Allergy (Unknown, Uncoded 05/03/24 14:10) SEIZURES onion Allergy (Unknown, Uncoded 05/03/24 14:10) f Medication List - Last Reconciled 05/03/24 by Esa Dorado PA-C citalopram 15 mg (1.5 x 10 mg) PO DAILY 90 days Tobacco use date assessed: 05/03/24 Dental Screening Dental Screen Date: 05/03/24 Did you have a dental visit in the last 12 months?: Yes Did you have a dental problem in the last 6 months where you did not have access to dental care?: No Was dental information given to patient?: Patient has dentist HPI PE HPI Details Patient is a 29-year-old female here today for a routine annual physical. Patient's past medical history significant for generalized anxiety disorder and anemia. 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 Anxiety: Has been well controlled since increasing her dose of citalopram. .. 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 [facility] Medical History (Updated 05/03/24 @ 14:29 by Esa Dorado PA-C) Seizures Abnormal uterine bleeding Family planning state Otalgia of right ear Vjxsr-uut-lhrlx fetus, third trimester Encounter for suspected problem with growth, ruled out Encounter for supervision of normal in third trimester Rh negative state in antepartum period Depression affecting Fatigue during Encounter for supervision of normal in second trimester Cerumen debris on tympanic membrane of both ears Supervision of normal first Positive urine test COVID-19 Anxiety Tourettes syndrome Anemia Surgical History No pertinent past surgical history Family History Father No problems noted. Mother No problems noted. Maternal Grandmother Diabetes mellitus Maternal Grandfather Diabetes mellitus Paternal Grandmother Diabetes mellitus Paternal Grandfather No problems noted. Social History (Updated 05/03/24 @ 14:14 by Esa Doraod PA-C) Household Members: Family Both parents involved: Yes Caregiver staying overnight: No Housing: House Are you a primary home care physical therapist to a significant other at home: No Do you presently have visiting nurse or other home services: No 75 years or older and lives alone: No Alcohol intake: unknown Patient Tobacco Use Status: Never used Tobacco e-Cigarette/Vaping Use: Never Used Agree to transfusion: Yes service: No Current occupational status: employed Current occupation: [employer]- Cognitive needs: No Hearing needs: No Vision needs: No Female Reproductive History Menstrual Age of Menarche: 15 Date of last menstrual period: 04/12/24 Questionnaire PHQ-9 Over the last 2 weeks, how often have you been bothered by any of the following problems? 1. Little interest or pleasure in doing things: not at all 2. Feeling down, depressed, or hopeless: not at all 3. Trouble falling or staying asleep, or sleeping too much: not at all 4. Feeling tired or having little energy: not at all 5. Poor appetite or overeating: not at all 6. Feeling bad about yourself - or that you are a failure or have let yourself or your family down: not at all 7. Trouble concentrating on things, such as reading the newspaper or watching television: not at all 8. Moving or speaking so slowly that other people could have noticed. Or the opposite - being so fidgety or restless that you have been moving around a lot more than usual: not at all 9. Thoughts that you would be better off or of hurting yourself in some way: not at all Total score: 0 Depression Screening Interpretation: Negative Depression Screening Done: Yes 22326 - PHQ-9 Billing: Yes Source: Developed by Drs. Leonard Parson, Patricia Cruz, Sourav Mcguire and colleagues, with an educational cindy from [employer]. Thrive Questionnaire Date Thrive assessed: 05/03/24 I am a: Patient What is your living situation today?: I have a steady place to live Within the past 12 months, did the food you bought not last and you didn't have the money to get more?: Never true Within the past 12 months, did you worry whether your food would run out before you got money to buy more?: Never true Do you have trouble paying for medicines?: No Do you have trouble getting transportation to medical appointments?: No Do you have trouble paying your heating and electricity bill?: No Do you have trouble taking care of your child, family member or friend?: No Do you have trouble with day-to-day activities such as bathing, preparing meals, shopping, managing finances, etc.?: No Are you currently unemployed and looking for a job?: No Are you interested in more education?: No Please select the resources that you would like help with: None Currently or been in a relationship where the following occur: no concerns reported THRIVE Score: 0 AUDIT C Alcohol Use Questionnaire (AUDIT-C) 1. How often do you have a drink containing alcohol?: Never 3. How often do you have six or more drinks on one occasion?: Never Total Score: 0 KRYSTIAN-7 AMB Questionnaire KRYSTIAN-7 Date KRYSTIAN - 7 assessed: 05/03/24 Feeling nervous, anxious, or on edge: 1 = Several days Not being able to stop or control worryin = More than half the days Worrying too much about different things: 2 = More than half the days Trouble relaxin = Not at all Being so restless that it is hard to sit still: 0 = Not at all Becoming easily annoyed or irritable: 1 = Several days Feeling afraid as if something awful might happen: 1 = Several days Total KRYSTIAN-7 score (0-4 normal; 5-9 mild; 10-14 moderate; 15-21 severe): 7 Source: Developed by Drs. Leonard Parson, Sourav Alexander and colleagues, with an educational cindy from [employer]. KRYSTIAN-7 Assessment Billing KRYSTIAN-7 Assessment Tool: KRYSTIAN-7 Assessment 05028 Review of Systems Const Denies body aches, Denies chills, Denies excessive sweating, Denies fatigue, Denies fever(s) and Denies headache(s) Eyes Denies blurry vision ENT Denies dysphagia, Denies vertigo, Denies dizziness, Denies headache(s), Denies hearing loss and Denies tinnitus Card Denies chest pain, Denies chest pain with activity, Denies syncope, Denies irregular heart rhythm and Denies dyspnea Resp Denies chest congestion, Denies cough, Denies hemoptysis, Denies dyspnea and Denies wheezing GI Denies abdominal pain, Denies melena, Denies hematochezia, Denies coffee ground emesis, Denies dysphagia, Denies diarrhea, Denies nausea and Denies vomiting Denies urinary frequency, Denies dysuria, Denies urinary hesitancy and Denies urinary urgency Musc Denies arthralgias, Denies limited range of motion, Denies muscle cramps and Denies muscle weakness Skin/Breast Denies rash and Denies skin ulcer Neuro Denies Abnormal speech present, Denies confusion, Denies vertigo, Denies dizziness, Denies syncope, Denies headache(s), Denies memory loss and Denies seizure-like activity Psych Denies anxiety, Denies confusion, Denies depression, Denies memory loss, Denies panic attacks and Denies paranoia Endo Denies excessive sweating, Denies fatigue, Denies flushing, Denies polydipsia and Denies polyuria Aller/Immun Denies wheezing Physical exam (Primary Care) Vital Signs: Last Vital Signs Pulse 88 05/03/24 14:03 BP 114/78 05/03/24 14:03 Pulse Ox 99 05/03/24 14:03 Oxygen Delivery Method Room Air 05/03/24 14:03 BMI result Body Mass Index 26.7 Tobacco/Smoking Status: Tobacco use Status Tobacco use date assessed 05/03/24 05/03/24 14:10 Patient Tobacco Use Status Never used Tobacco 05/03/24 14:10 e-Cigarette/Vaping Use Never Used 05/03/24 14:10 PHQ-9: PHQ-9 Score PHQ-9: Total score 0 05/03/24 14:10 Depression Screening Interpretation: Negative Thrive Assessment: Date of Thrive Assessment Date Thrive assessed 05/03/24 05/03/24 14:10 Currently or been in a relationship where the following occur: no concerns reported Const General: cooperative, comfortable, no acute distress, alert and awake; No con fusion Orientation/consciousness: oriented to person, oriented to place, patient oriented x3 and No confusion HENMT Head: Yes normocephalic Ears: external ears normal and TM's normal bilaterally Face and sinus: No sinus tenderness Mouth: Normal oral and palatal mucosa present and tongue normal Teeth and gingiva: dentition normal and gingiva normal Throat: Yes posterior oropharynx normal, Yes tonsils normal and Yes uvula midline Eyes Conjunctivae: conjunctivae normal Sclerae: sclerae normal Pupils: Equal, round and reactive pupils present EOM: EOMs intact bilaterally Direct Ophthalmoscopy: No no photophobia Neck Neck: Yes no lymphadenopathy, No tender and Yes no JVD Thyroid: Thyroid normal Carotids: no bruits Chest Chest palpation & inspection: no tenderness Resp Effort & Inspection: normal respiratory effort, no audible wheezes, not labored and no stridor Auscultation: no crackles, no rales, no rhonchi and no wheezes Cardio Jugular venous distension: no JVD Rate: regular rate, not bradycardic and not tachycardic Rhythm: regular rhythm Bruits: no carotid bruits Peripheral pulses: Peripheral pulses 2+ throughout GI Inspection: Yes normal to inspection, No abdominal wall ecchymosis and No visible herniation Palpation (GI): Soft to palpation, nontender, no guarding, not rigid and No hepatosplenomegaly present Auscultation: normoactive bowel sounds General: Yes no CVA tenderness Back/Spine/Pelvis Back: no CVA tenderness and No back tenderness Cervical Spine: cervical ROM normal Thoracic/Lumbar Spine: thoracic and lumbar spine normal to inspection, straight leg raise negative bilaterally, No thoraco-lumbar ROM limited and No lumbar spinal tenderness Skin Lesions: no lesions Rashes: no rashes Wounds: no wounds Neuro General: oriented to person, oriented to place, patient oriented x3, CN's II-XI intact bilaterally and No confusion Cranial nerves: Yes Equal, round and reactive pupils present and Yes Normal accommodation reflex present Cognition (Neuro): normal cognition Speech: No Abnormal speech present Gait exam (Neuro): Normal gait present Motor exam (neuro): 5/5 motor strength present throughout Extrem Right upper extremity: full ROM; no cyanosis Left upper extremity: full ROM; no cyanosis Right lower extremity: no edema Left lower extremity: no edema Psych Appearance: grossly normal Mental Status: mental status grossly normal Affect: normal affect Attitude: cooperative Thought process: Normal thought process present Assessment and Plan Assessment & Plan (1) Annual physical exam: Code(s): Z00.00 - Encounter for general adult medical examination without abnormal findings (2) Screening for diabetes mellitus: Code(s): Z13.1 - Encounter for screening for diabetes mellitus (3) Anxiety: Code(s): F41.9 - Anxiety disorder, unspecified Plan: Patient's KRYSTIAN-7 score positive for anxiety which has been existing condition for her. She does take SSRI therapy and has been effective for her. 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 Orders: Orders Vitamin D 25-OH Total Today E55.9 - Vitamin D deficiency, unspecified Comprehensive [place]. Panel Fast Today Z13.1 - Encounter for screening for diabetes mellitus Complete Blood Count no Diff Today D50.8 - Other iron deficiency anemias Medications: Refilled citalopram 15 mg PO daily; 15 mg (1.5 x 10 mg) PO DAILY 90 days 135 tabs 3RF F41.9 - Anxiety disorder, unspecified Coding Level of Care Code Est Pt Prev Care [id number]([id number]) Diagnoses Annual physical exam Z00.00 Screening for diabetes mellitus Z13.1 Anxiety F41.9 Additional Codes KRYSTIAN-7 Assessment Billing - KRYSTIAN-7 Assessment Tool: KRYSTIAN-7 Assessment 31986 ([id number])
== END 2024-05-03 14:22 | disposition home or self-care (01) ==
PROVIDERS: PCP Physician Assistant; Visit Provider Physician Assistant
DX: Z00.00 Encounter for general adult medical examination without abnormal findings (principal); F41.9 Anxiety disorder, unspecified
CPT/HCPCS: 99395

== ENCOUNTER 2024-08-06 18:41 | Emergency (ER) | payer OTHER, SELFPAY ==
[2024-08-06 18:49] VITALS: BP 117/76; PULSE 115; RESP 20; TEMP 36.8; O2SAT 98; BMI 25.6
--- NOTE | 2024-08-06 18:50 | ECG_ITS ---
Test Reason : OVERDOSED Blood Pressure : / mmHG Vent. Rate : 102 BPM Atrial Rate : 102 BPM P-R Int : 136 ms QRS Dur : 088 ms QT Int : 346 ms P-R-T Axes : 037 064 015 degrees QTc Int : 450 ms Sinus tachycardia Otherwise normal ECG When compared with ECG of 16-APR-2023 09:49, No significant change was found Referred By: Marta Thompson Electronically Signed By:HARSHAD FERNÁNDEZ
--- NOTE | 2024-08-06 18:58 | ED_ITS ---
HPI - Overdose General Chief Complaint: Overdose Stated Complaint: Took 9 pills of celexa 10mg / SI Time Seen by Provider: 08/06/24 19:08 Source: patient Mode of arrival: ambulatory Limitations: no limitations History of Present Illness ED Provider: Dr. Ruby Jacob HPI Narrative: Patient comes to the emergency room complaining of anxiety. Patient states that she took 9 tablets of Celexa, 10 mg each. Patient states that she is not SI. Patient states that she had a lot of stress and believes that a higher dose with help her feel more relaxed. Patient is adamant that she is not suicidal or tried harming herself in any way. Patient was just trying to relax. Related Data Previous Rx's ?Medication ?Instructions ?Recorded citalopram 10 mg tablet 15 mg (1.5 x 10 mg) PO DAILY 90 05/03/24 days #135 tabs Allergies Allergy/AdvReac Type Severity Reaction Status Date / Time Anesthetics - Amide Type - Allergy Severe Seizure Verified 08/06/24 18:53 Select A latex [LATEX] Allergy Mild RASH Verified 08/06/24 18:53 levetiracetam [From Keppra] Allergy Chest Pain Verified 08/06/24 18:53 From [facility] Allergy Unknown SEIZURES Uncoded 05/03/24 14:10 onion Allergy Unknown f Uncoded 05/03/24 14:10 Review of Systems 2 Review of Systems: Constitutional : No Weight loss, No Fever, No Chills, No Night Sweats, No Fatigue, No Malaise ENT/Mouth : No Hearing loss, No Ear Pain, No Nasal Congestion, No Sinus Pain, No Hoarseness, No sore throat, No Rhinorrhea, No Swallowing Difficulty Eyes: No Eye Pain, No Swelling, No Redness, No Foreign Body, No Discharge, No Vision Changes Cardiovascular : No Chest Pain, No SOB, No Dyspnea on Exertion, No Orthopnea, No Edema, No Palpitations Respiratory : No Cough, No Sputum, No Wheezing, No Smoke Exposure, No Dyspnea Gastrointestinal : No Nausea, No Vomiting, No Diarrhea, No Constipation, No abdominal Pain, No Hematochezia, No Melena Genitourinary : no irregular bleeding, No Dysuria, No Urinary Frequency, No Hematuria, No Urinary Incontinence, No Urgency, No Flank Pain, No Urinary Flow Changes, No Hesitancy Musculoskeletal : No joint pain, No Myalgias, No Joint Swelling Skin : No Skin Lesions, No rash Neuro : No Weakness, No Numbness, No Paresthesias, No Loss of Consciousness, No Dizziness, No Headache Psych : Complaining of anxiety, No Depression, No SI/HI/AH/VH, No Social Issues, Heme/Lymph: No Bruising, No Bleeding,No Lymphadenopathy Endocrine : No Polyuria, No Polydipsia, No Temperature Intolerance PMFSH Past Medical History Medical History Seizures Abnormal uterine bleeding Family planning state Otalgia of right ear [id number] fetus, third trimester Encounter for suspected problem with growth, ruled out Encounter for supervision of normal in third trimester Rh negative state in antepartum period Depression affecting Fatigue during Encounter for supervision of normal in second trimester Cerumen debris on tympanic membrane of both ears Supervision of normal first Positive urine test COVID-19 Anxiety Tourettes syndrome Anemia Surgical History No pertinent past surgical history Family History Family History Father No problems noted. Mother No problems noted. Maternal Grandmother Diabetes mellitus Maternal Grandfather Diabetes mellitus Paternal Grandmother Diabetes mellitus Paternal Grandfather No problems noted. Social History Social History (Updated 05/03/24 @ 14:14 by Esa Dorado PA-C) Household Members: Family Housing: House Are you a primary critical care nurse specialist to a significant other at home: No Do you presently have visiting nurse or other home services: No Alcohol intake: unknown Patient Tobacco Use Status: Never used Tobacco Smoked in Last 30 Days: No e-Cigarette/Vaping Use: Never Used Use of substances other than those prescribed or required for medical reasons: No Agree to transfusion: Yes Advance Directives: No Advance Directives Information Provided: No Do you have a plan to hurt others: No Plan Patient : No service: No Current occupational status: employed Current occupation: [employer]- Cognitive needs: No Hearing needs: No Vision needs: No Physical Exam 2 Vital Signs: Vital Signs: Last Vital Signs Temp 98.6 F 08/06/24 21:25 Pulse 82 09/20/24 21:25 Resp 16 08/06/24 21:25 BP 98/51 L 08/06/24 21:25 Pulse Ox 96 08/06/24 21:25 O2 Del Method Room Air 08/06/24 21:25 BMI result Body Mass Index 25.6 Const: Other: Appearance: Alert. Oriented X3. No acute distress. Eyes: Pupils equal, round and reactive to light. ENT: Pharynx normal. Neck: Normal inspection. Neck supple. No lymph nodes noted. No crepitus CVS: Normal heart rate and rhythm. Pulses normal. Normal S1 and S2 Respiratory: No respiratory distress. Breath sounds normal. No Wheezing. No rales Abdomen: Soft and nontender. No rigidity. No distention. Skin: Skin warm and dry. Normal skin color. Normal skin turgor. Extremities: No lower extremity edema. No Lacerations. No Rash Neuro: Oriented X 3. No motor deficit. No sensory deficit. Moving all extremities. No slurred speech. CN 2 through 12 grossly intact Psych: calm, cooperative, normal affect Course Course Course Narrative: This is a Rapid Medical Examination (RME) performed by Moraima Thompson PA-C in triage. Full HPI, ROS, assessment and treatment plan per primary provider in the Main ED. 29 yo female here w/ mom for eval after ingesting 9 celexa pills intentionally. She is prescribed 15mg daily (1.5 pills). Reports increased life stressors and intermittent depression. Decided to take 9 pills today as a wake up call . Denies trying to end her life. Denies HI. Denies headache, dizziness, lightheadedness, chest pain, palpitations or shortness of breath. + tearful anxious in triage. I called and spoke with poison control - recommending EKG, basic labs, salicylates, Tylenol levels, ethanol levels. If initial EKG is normal, repeat EKG in 4 hours. Recommending observation for 6-8 hours to observe for mild serotonergic symptoms. Plan: ekg, labs Medications Administered Discontinued Medications Generic Name Dose Route Start Last Admin Trade Name Freq PRN Reason Stop Dose Admin Potassium Chloride 60 meq 08/06/24 23:29 08/06/24 23:41 Potassium Chloride Packet 20 Meq Packet PO 08/06/24 23:30 60 meq ONCE ONE Administration Medical Decision Making Medical Decision Making [facility] Narrative: My interpretation of labs, normal hematology and chemistry. Potassium 3.4, per poison control recommendation potassium should before. Urine toxicology negative for drugs of abuse, negative for alcohol -patient calm, cooperative -EKG: My interpretation normal sinus rhythm, heart rate 76, no ST segment depression or elevation, no T-wave inversion, QTC 443 -care team consult pending. Patient denies being SI or HI, at this time, patient not on a Section 12 -physician observation started at 01:30 -care team consult pending -sign-out given to my colleague Dr. Tinajero Differential Diagnosis Differential Diagnoses: The differential diagnosis associated with the presentation includes (Anxiety, depression, SI) Admission/Observation Consideration of admission/observation: Escalation of care including admission/observation considered (Patient under physician observation waiting to be seen by the care team) Lab Data MDM Lab Attestation statement: I reviewed the patient's lab results. 08/06/24 19:09 08/06/24 19:09 Labs: Lab Results 08/06/24 08/07/24 Range/Units 19:09 01:05 WBC 7.9 (4.8-10.8) X10*3/uL RBC 4.32 (4.20-5.50) X10*6/uL Hgb 12.6 (12.0-16.0) g/dl Hct 37.6 (37.0-47.0) % MCV 87.0 (80.0-98.0) fL MCH 29.2 (27.0-33.0) pg MCHC 33.5 (31.0-35.0) g/dl RDW 12.8 (11.0-16.0) % Plt Count 269 (160-400) X10*3/uL MPV 10.5 (9.4-12.3) fL Immature Gran % (Auto) 0.5 H (0.0-0.4) % Neut % (Auto) 55.0 (45-73) % Lymph % (Auto) 32.6 (20-40) % [place] % (Auto) 6.6 (2-11) % Eos % (Auto) 4.5 H (0-4) % Baso % (Auto) 0.8 (0-2) % Lymph # (Auto) 2.6 (1.2-4.9) X10*3/uL [place] # (Auto) 0.5 (0.1-1.2) X10*3/uL Eos # (Auto) 0.4 (0.0-0.4) X10*3/uL Baso # (Auto) 0.1 (0.0-0.2) X10*3/uL Abs Immat Gran (auto) 0.04 H (0.00-0.03) X10*3/uL Absolute Neuts (auto) 4.3 (2.0-8.3) x10*3/uL Absolute Nucleated RBC 0.000 (0.0-0.012) X10*3/uL Nucleated RBC % (auto) 0.0 (0.0-0.2) /100WBC Sodium 138 (135-145) mmol/L Potassium 3.4 (3.3-5.1) mmol/L Chloride 105 (96-108) mmol/L Carbon Dioxide 25 (22-29) mmol/L Anion Gap 11 L (12-20) BUN 13 (9-16) mg/dL Creatinine 0.61 (0.5-1.4) mg/dL Estim Creat Clear Calc 121.2 Estimated GFR > 60 Random Glucose 105 (60-115) mg/dL Calcium 9.1 (8.4-10.2) mg/dL Magnesium 2.0 (1.6-2.6) mg/dL Total Bilirubin 0.2 (0.0-1.0) mg/dL AST 14 (5-31) U/L ALT 11 (0-31) U/L Alkaline Phosphatase 68 (39-117) U/L Total Protein 7.3 (6.5-8.0) g/dL Albumin 4.3 (3.5-5.0) g/dL Lipase 21 (8-78) U/L Beta HCG, Quant < 2 mIU/mL Salicylates < 5.0 L (15-30) mg/dL Urine Opiates Screen Not Detected (Not Detect) Ur Buprenorphine Scrn Not Detected (Not Detect) ng/mL Ur Oxycodone Screen Not Detected (Not Detect) ng/mL Urine Methadone Screen Not Detected (Not Detect) ng/mL Urine Fentanyl Screen Not Detected (Not Detect) Acetaminophen < 3 (<30) mcg/mL Ur Barbiturates Screen Not Detected (Not Detect) Ur Phencyclidine Scrn Not Detected (Not Detect) Ur Amphetamines Screen Not Detected (Not Detect) U Benzodiazepines Scrn Not Detected (Not Detect) Urine Cocaine Screen Not Detected (Not Detect) U Marijuana (THC) Screen Not Detected (Not Detect) Ethyl Alcohol < 10 mg/dL Independent Interpretation I performed an independent interpretation of an: EKG Critical Care Time Critical Care Time Critical Care Time: Yes Total Critical Care Time: 30 Attestation: I have personally provided critical care time. Time includes review of lab data, radiology results, discussion with consultants, and monitoring for potential decompensation. Intervention performed as documented. Discharge Plan Discharge Clinical Impression: Accidental medication overdose Patient Disposition: Still a Patient Prescriptions: No Action citalopram 10 mg tablet 15 mg PO DAILY 90 Days Qty: 135 3RF Rx Instructions: 15 mg PO daily; Print Language: Algerian
--- NOTE | 2024-08-06 19:11 | MHC.EDTECH ---
Patient ekg taklen and was read by Provider ,blood drawn and sent to lab .
[2024-08-06 19:15] LABS: MANUAL DIFF FLAG NO
[2024-08-06 19:16] VITALS: BP 107/52; PULSE 95; RESP 17; TEMP 37.1; O2SAT 97
[2024-08-06 19:16] LABS: Basophils Absolute Auto 0.1 X10*3/uL (0.0-0.2); Basophils Percent Auto 0.8 % (0-2); Eosinophils Absolute Auto 0.4 X10*3/uL (0.0-0.4); Eosinophils Percent Auto 4.5 % (0-4); Hematocrit 37.6 % (37.0-47.0); Hemoglobin 12.6 g/dl (12.0-16.0); Imm Gran Abs Auto 0.04 X10*3/uL (0.00-0.03); Imm Gran Pct Auto 0.5 % (0.0-0.4); Lymphocytes Absolute Auto 2.6 X10*3/uL (1.2-4.9); Lymphocytes Percent Auto 32.6 % (20-40); Mean Corpuscular HGB Conc 33.5 g/dl (31.0-35.0); Mean Corpuscular Hemoglobin 29.2 pg (27.0-33.0); Mean Platelet Volume 10.5 fL (9.4-12.3); Monocytes Absolute Auto 0.5 X10*3/uL (0.1-1.2); Monocytes Percent Auto 6.6 % (2-11); Neutrophils Absolute Auto 4.3 x10*3/uL (2.0-8.3); Platelet Count 269 X10*3/uL (160-400); Red Blood Count 4.32 X10*6/uL (4.20-5.50); Red Cell Distribution Width 12.8 % (11.0-16.0); White Blood Count 7.9 X10*3/uL (4.8-10.8)
[2024-08-06 19:35] LABS: Ethanol < 10 mg/dL
[2024-08-06 19:43] LABS: Acetaminophen LAB < 3 mcg/mL (<30); Salicylate < 5.0 mg/dL (15-30)
[2024-08-06 19:44] LABS: Alanine Aminotransferase 11 U/L (0-31); Albumin Level 4.3 g/dL (3.5-5.0); Alkaline Phosphatase 68 U/L (39-117); Anion Gap 11 (12-20); Aspartate Amino Transferase 14 U/L (5-31); Bilirubin Total 0.2 mg/dL (0.0-1.0); Blood Urea Nitrogen 13 mg/dL (9-16); Calcium 9.1 mg/dL (8.4-10.2); Carbon Dioxide 25 mmol/L (22-29); Chloride 105 mmol/L (96-108); Creatinine Clr Calc Pharmacy 121.2; Estimated Glomerular Filt Rate > 60; Glucose Random 105 mg/dL (60-115); Lipase 21 U/L (8-78); Potassium 3.4 mmol/L (3.3-5.1); Sodium 138 mmol/L (135-145); Total Protein 7.3 g/dL (6.5-8.0)
[2024-08-06 19:45] LABS: HCG Quantitative < 2 mIU/mL
--- NOTE | 2024-08-06 21:04 | PC.NURSE ---
Please see below for recommendations from poison control - all information has since be reported to MD Jacob Observe patient for serotonin syndrome including but not limited to htn, anxiety, diaphoresis, tachycardia, agitation all of which can be treated with benzos (ativan specifically which can be titrated to affect if no symptom changes, medication can be repeated every 15 minutes PRN). If this occurs we are to call poison control back right away Pt is at risk for QTc and QRS prolongation and it is recommended that the pt's magnesium be at a goal of 2 (which she currently is at) and potassium goal of 4 (pt currently at 3.4 and replacement has been recommended) Repeat EKG in 2 hours or after replacement potassium has been administered. Finally once medically cleared they recommend that the pt be seen and evaluation by care team. pt to remain under observation for 6-8 hours
[2024-08-06 21:25] VITALS: BP 98/51; PULSE 82; RESP 16; TEMP 37; O2SAT 96
[2024-08-06] MEDS: Potassium Chloride Packet 20 MEQ PACKET 60 MEQ PO (23:41)
--- NOTE | 2024-08-06 23:58 | MHC.CARE ---
Pt will be assessed by the CARE team in the morning per 6-8 hour observation requirement by poison control.
--- NOTE | 2024-08-07 01:07 | ECG_ITS ---
Test Reason : OD Blood Pressure : / mmHG Vent. Rate : 076 BPM Atrial Rate : 076 BPM P-R Int : 140 ms QRS Dur : 084 ms QT Int : 394 ms P-R-T Axes : 038 078 045 degrees QTc Int : 443 ms Normal sinus rhythm Normal ECG When compared with ECG of 06-AUG-2024 18:52, Nonspecific T wave abnormality no longer evident in Lateral leads Referred By: Ruby Jacob Electronically Signed By:HARSHAD FERNÁNDEZ
[2024-08-07 01:19] LABS: Amphetamine Screen Urine Not Detected (Not Detect); Barbiturates, Urine Not Detected (Not Detect); Benzodiazepines Screen Urine Not Detected (Not Detect); Buprenorphine Scr Not Detected (Not Detect); Cannabinoid Screen Urine Not Detected (Not Detect); Cocaine Screen Urine Not Detected (Not Detect); Fentanyl, urine Not Detected (Not Detect); Methadone Screen, Urine Not Detected (Not Detect); Opiate Screen Urine Not Detected (Not Detect); Oxycodone Screen Urine Not Detected (Not Detect); Phencyclidine Screen Urine Not Detected (Not Detect)
--- NOTE | 2024-08-07 01:24 | PC.NURSE ---
Assumed care of pt. Pt ambulating to room with steady gait, no acute distress noted at this time.
[2024-08-07 09:15] VITALS: BP 119/68; PULSE 84; RESP 16; TEMP 37.2; O2SAT 98
[2024-08-07 09:31] VITALS: BP 119/68; PULSE 84; RESP 16; TEMP 37.2; O2SAT 98
--- NOTE | 2024-08-07 09:57 | MHC.CARE ---
Patient seen by CARE team, referred for OP services/ three day follow up with [facility]. D/c home with mother/ safety plan
--- NOTE | 2024-08-09 08:49 | MHC.CARE ---
Referral was made to [facility] for therapy.
== END 2024-08-07 09:31 | disposition home or self-care (01) ==
PROVIDERS: Physician Assistant Medical; Emergency Provider Emergency Medicine; PCP Physician Assistant
DX: T43.221A Poisoning by selective serotonin reuptake inhibitors, accidental (unintentional), initial encounter (principal); F41.9 Anxiety disorder, unspecified; R00.0 Tachycardia, unspecified; F33.1 Major depressive disorder, recurrent, moderate; R10.2 Pelvic and perineal pain; Y92.89 Other specified places as the place of occurrence of the external cause; Z79.899 Other long term (current) drug therapy; Z51.81 Encounter for therapeutic drug level monitoring
CPT/HCPCS: 36415; 80053; 80143; 80179; 80307; 83690; 83735; 84702; 85025; 93005; 99285; S9485

== ENCOUNTER 2024-09-27 19:56 | Emergency (ER) | payer OTHER, MEDICAID, SELFPAY ==
[2024-09-27 20:13] VITALS: BP 135/77; PULSE 86; RESP 18; TEMP 36.4; O2SAT 99; BMI 25.6
--- NOTE | 2024-09-27 20:16 | ED_ITS ---
HPI - General Adult General Chief complaint: General Medical Stated complaint: nauseous, dizzy, fatigue Source: patient Mode of arrival: ambulatory Limitations: no limitations History of Present Illness ED Provider: Veronica Mchugh PA-C HPI narrative: Patient is a 29 year old assigned female at with a history of anxiety, anemia, and tourettes presenting to the emergency department today with dizziness, body aches, fatigue, chills, nausea, and sore throat. Patient states that over the last week she has felt generally unwell with dizziness, body aches, fatigue, chills, nausea, and a sore throat. Patient denies any lightheadedness, abdominal pain, vomiting, fever, blurry vision, double vision, loss of vision, chest pain, difficulty breathing, shortness of breath, back pain, night sweats, pain with urination, increased urinary frequency, increased urinary urgency, blood in her urine or stool, syncope or a near syncopal episode, recent trauma or falls, bowel incontinence, bladder incontinence, or any other complaints at this time. Onset (ago): week(s) (1) Relieving factors: none Exacerbating factors: none Associated symptoms: fever/chills and nausea/vomiting Treatments prior to arrival: none Related Data Previous Rx's ?Medication ?Instructions ?Recorded citalopram 10 mg tablet 15 mg (1.5 x 10 mg) PO DAILY 90 05/03/24 days #135 tabs ondansetron 4 mg disintegrating 4 mg PO Q8H PRN nausea and 09/28/24 tablet vomiting #10 tabs Allergies Allergy/AdvReac Type Severity Reaction Status Date / Time Anesthetics - Amide Type - Allergy Severe Seizure Verified 09/28/24 12:56 Select A latex [LATEX] Allergy Mild RASH Verified 09/28/24 12:56 levetiracetam [From Keppra] Allergy Chest Pain Verified 09/28/24 12:56 From [facility] Allergy Unknown SEIZURES Uncoded 09/28/24 12:56 onion Allergy Unknown f Uncoded 09/28/24 12:56 Review of Systems 2 Constitutional: Constitutional: Reports no additional constitutional complaints, Reports body ache(s), Reports chills, Reports fatigue, Denies fever(s) and Denies night sweats Eyes: Eyes: Reports no additional eye complaints, Denies blurry vision, Denies change in vision, Denies diplopia, Denies eye discharge, Denies loss of vision and Denies eye pain ENT: Reports dizziness and Reports sore throat Cardiovascular: Cardiovascular: Reports no additional cardiovascular complaints, Denies chest pain, Denies lightheadedness, Denies Loss of Consciousness and Denies dyspnea Respiratory: Respiratory: Reports no additional respiratory complaints and Denies dyspnea Gastrointestinal: Gastrointestinal: Reports no additional gastrointestinal complaints, Denies abdominal pain, Denies melena, Denies hematochezia, Denies change in bowel habits, Denies change in stool character and Reports nausea Genitourinary: Genitourinary: Denies hematuria, Denies urinary frequency, Denies dysuria, Denies urinary incontinence, Denies urinary hesitancy and Denies urinary urgency Musculoskeletal: Musculoskeletal: Reports no additional musculoskeletal complaints, Denies numbness and Denies tingling Neurologic: Reports dizziness, Denies loss of vision, Denies numbness and Denies tingling Psychiatric: Psychiatric: Reports no additional psychiatric complaints Endocrine: Endocrine: Reports no additional endocrine complaints and Reports fatigue Hematologic/Lymphatic: Hematologic/Lymphatic: Reports no additional hematologic/lymphatic complaints Allergic/Immunologic: Allergic/Immunologic: Reports no additional allergic/immunologic complaints [facility] Past Medical History Attestation statement: The following information was validated with the patient. Source: old records reviewed and nursing notes reviewed Medical History Seizures Abnormal uterine bleeding Family planning state Otalgia of right ear Mqhcx-yra-vvcia fetus, third trimester Encounter for suspected problem with growth, ruled out Encounter for supervision of normal in third trimester Rh negative state in antepartum period Depression affecting Fatigue during Encounter for supervision of normal in second trimester Cerumen debris on tympanic membrane of both ears Supervision of normal first Positive urine test COVID-19 Anxiety Tourettes syndrome Anemia Surgical History No pertinent past surgical history Family History Family History Father No problems noted. Mother No problems noted. Maternal Grandmother Diabetes mellitus Maternal Grandfather Diabetes mellitus Paternal Grandmother Diabetes mellitus Paternal Grandfather No problems noted. Social History Social History Household Members: Family Housing: House Are you a primary customer care representative to a significant other at home: No Do you presently have visiting nurse or other home services: No Alcohol intake: unknown Patient Tobacco Use Status: Never used Tobacco e-Cigarette/Vaping Use: Never Used Agree to transfusion: Yes service: No Current occupational status: employed Current occupation: [employer]- Cognitive needs: No Hearing needs: No Vision needs: No Physical Exam ED Vital Signs: Vital Signs - 24 hr 09/27/24 20:13 Temperature 97.5 F Pulse Rate 86 Respiratory Rate 18 Blood Pressure 135/77 Pulse Oximetry 99 Oxygen Delivery Method Room Air BMI result Body Mass Index 25.6 Const General: cooperative, no acute distress, alert and awake Nutritional Appearance: well nourished Orientation/consciousness: patient oriented x3 Limitations: no limitations HENMT Head: Yes normal to inspection and Yes atraumatic Ears: hearing grossly normal bilaterally and external ears normal General nose exam: Normal external nose present, no nasal discharge noted and no epistaxis Face and sinus: Yes normal facial exam, No abrasion and No laceration Mouth: Normal oral and palatal mucosa present, no drooling and no muffled voice Eyes General: appearance normal, both eyes and all related structures Periorbital: periorbital findings normal Eyelids: Yes eyelids normal Conjunctivae: conjunctivae normal Pupils: Equal, round and reactive pupils present EOM: EOMs intact bilaterally Neck Neck: Yes normal visual inspection, Yes full ROM and Yes no lymphadenopathy Chest Chest palpation & inspection: normal inspection of the chest Resp Effort & Inspection: normal respiratory effort and able to speak in complete sentences GI Inspection: Yes normal to inspection Neuro General: patient oriented x3 and moves all extremities Cranial nerves: Yes Equal, round and reactive pupils present Cognition (Neuro): normal cognition Extrem General: Yes normal to inspection, Yes full ROM and Yes capillary refill normal Psych Appearance: grossly normal Mental Status: mental status grossly normal Affect: normal affect Attitude: cooperative Thought process: Normal thought process present Thought content: Normal thought content present Insight: Good insight present (Psych) Course Course Course Narrative: RME performed by Veronica Mchugh PA-C. Patient is a 29 year old assigned female at presenting to the emergency department with dizziness, body aches, fatigue, chills, nausea, and a sore throat. Detailed physical exam and review of systems are deferred to the primary care coordinator. Labs and swabs ordered. Patient placed back in the waiting room pending room availability and results. Medical Decision Making Medical Decision Making [facility] Narrative: Patient is a 29 year old assigned female at with a history of anxiety, anemia, and tourettes presenting to the emergency department today with dizziness, body aches, fatigue, chills, nausea, and sore throat. Patient's limited physical exam performed in triage was unremarkable. Patient's blood work was unremarkable. Patient's EKG was unremarkable. Patient left the department without completing treatment. Patient left the department before myself or any of the other emergency department clinicians could explain to or review with the patient; physical exam findings, test results, need or lack there of for additional testing, need or lack there of for a procedure to be performed, need or lack there of for hospital admission / transfer, need or lack there of for prescription medication, treatment options, or a treatment plan. Differential Diagnosis Differential Diagnoses: The differential diagnosis associated with the presentation includes Viral illness COVID Influenza RSV Strep pharyngitis Admission/Observation Consideration of admission/observation: Escalation of care including admission/observation considered Patient would have been admitted to the hospital had she completed her work up and it had any findings where hospital admission was appropriate, her clinical presentation warranted hospital admission, had myself or any other emergency biology department chair had the ability to discuss need or lack there of for hospital admission, and the patient hadn't left the department without completing treatment. Lab Data [facility] Lab Attestation statement: I reviewed the patient's lab results. My interpretation of these results are in the [facility] Rationale portion of this note. 09/27/24 20:32 09/27/24 20:32 Labs: Lab Results 09/27/24 09/27/24 Range/Units 20:32 23:50 WBC 7.5 (4.8-10.8) X10*3/uL RBC 4.21 (4.20-5.50) X10*6/uL Hgb 11.8 L (12.0-16.0) g/dl Hct 36.0 L (37.0-47.0) % MCV 85.5 (80.0-98.0) fL MCH 28.0 (27.0-33.0) pg MCHC 32.8 (31.0-35.0) g/dl RDW 13.0 (11.0-16.0) % Plt Count 282 (160-400) X10*3/uL MPV 10.7 (9.4-12.3) fL Immature Gran % (Auto) 0.3 (0.0-0.4) % Neut % (Auto) 42.4 L (45-73) % Lymph % (Auto) 46.7 H (20-40) % [place] % (Auto) 6.1 (2-11) % Eos % (Auto) 3.7 (0-4) % Baso % (Auto) 0.8 (0-2) % Lymph # (Auto) 3.5 (1.2-4.9) X10*3/uL [place] # (Auto) 0.5 (0.1-1.2) X10*3/uL Eos # (Auto) 0.3 (0.0-0.4) X10*3/uL Baso # (Auto) 0.1 (0.0-0.2) X10*3/uL Abs Immat Gran (auto) 0.02 (0.00-0.03) X10*3/uL Absolute Neuts (auto) 3.2 (2.0-8.3) x10*3/uL Absolute Nucleated RBC 0.000 (0.0-0.012) X10*3/uL Nucleated RBC % (auto) 0.0 (0.0-0.2) /100WBC Sodium 138 (135-145) mmol/L Potassium 3.4 (3.3-5.1) mmol/L Chloride 108 (96-108) mmol/L Carbon Dioxide 21 L (22-29) mmol/L Anion Gap 12 (12-20) BUN 14 (9-16) mg/dL Creatinine 0.71 (0.5-1.4) mg/dL Estim Creat Clear Calc 104.1 Estimated GFR > 60 Random Glucose 116 H (60-115) mg/dL Calcium 8.9 (8.4-10.2) mg/dL Magnesium 1.9 (1.6-2.6) mg/dL Total Bilirubin 0.2 (0.0-1.0) mg/dL AST 17 (5-31) U/L ALT 12 (0-31) U/L Alkaline Phosphatase 64 (39-117) U/L Troponin I High Sens < 2.7 (<3.5-17.0) ng/L Total Protein 7.1 (6.5-8.0) g/dL Albumin 4.0 (3.5-5.0) g/dL Urine Color Yellow Urine Appearance Clear Urine pH 6.5 (5.0-9.0) Ur Specific [place] 1.020 (1.005-1.025) Urine Protein Negative (Neg-Trace) mg/dL Urine Glucose (UA) Negative (Negative) mg/dL Urine Ketones Negative (Negative) mg/dL Urine Blood Negative (Negative) Urine Nitrite Negative (Negative) Ur Leukocyte Esterase Moderate (2+) H (Negative) Urine RBC 0-2 (0-2) /HPF Urine WBC 11-20 H (0-5) /HPF Ur Squamous Epith Cells 3-5 (0-2) /HPF Urine Bacteria 1+ (None Seen) Hyaline Casts 0-2 (0-2) /LPF Influenza Type A (PCR) NEGATIVE (Negative) Influenza Type B (PCR) NEGATIVE (Negative) RSV RNA Qual (PCR) NEGATIVE (Negative) SARS-CoV-2 RNA (RT-PCR) NEGATIVE (Negative) S. pyogenes GrpA NIR Negative (Negative) Independent Interpretation I performed an independent interpretation of an: EKG Interpretation: Vent. Rate: 081 BPM Atrial Rate: 081 BPM P-R Int: 146 ms QRS Dur: 084 ms QT Int: 374 ms P-R-T Axes: 036 067 031 degrees QTc Int: 434 ms Normal sinus rhythm Normal ECG When compared with ECG of 07-AUG-2024 01:07, No significant change was found Referred By: Veronica Mchugh Electronically Signed By:Chet Ferrer Dictated By: Chet Ferrer MD Signed By: Electronically signed by Chet Ferrer MD 09/28/24 [id number] Discharge Plan Discharge Clinical Impression: Acute sore throat Patient Disposition: Left W/O Completing Treatment Prescriptions: No Action citalopram 10 mg tablet 15 mg PO DAILY 90 Days Qty: 135 3RF Rx Instructions: 15 mg PO daily; ondansetron 4 mg tablet,disintegrating 4 mg PO Q8H PRN (Reason: nausea and vomiting) Qty: 10 0RF Discharge Date/Time: 09/28/24 04:06
--- NOTE | 2024-09-27 20:17 | ECG_ITS ---
Test Reason : dizziness Blood Pressure : / mmHG Vent. Rate : 081 BPM Atrial Rate : 081 BPM P-R Int : 146 ms QRS Dur : 084 ms QT Int : 374 ms P-R-T Axes : 036 067 031 degrees QTc Int : 434 ms Normal sinus rhythm Normal ECG When compared with ECG of 07-AUG-2024 01:07, No significant change was found Referred By: Veronica Mchugh Electronically Signed By:Chet Ferrer
[2024-09-27 20:38] LABS: MANUAL DIFF FLAG NO
[2024-09-27 20:54] LABS: IDNOW Serial# 08D9AD1C; Strep A Nucleic Acid Negative (Negative)
[2024-09-27 20:58] LABS: Basophils Absolute Auto 0.1 X10*3/uL (0.0-0.2); Basophils Percent Auto 0.8 % (0-2); Eosinophils Absolute Auto 0.3 X10*3/uL (0.0-0.4); Eosinophils Percent Auto 3.7 % (0-4); Hemoglobin 11.8 g/dl (12.0-16.0); Imm Gran Abs Auto 0.02 X10*3/uL (0.00-0.03); Imm Gran Pct Auto 0.3 % (0.0-0.4); Lymphocytes Absolute Auto 3.5 X10*3/uL (1.2-4.9); Lymphocytes Percent Auto 46.7 % (20-40); Mean Corpuscular HGB Conc 32.8 g/dl (31.0-35.0); Mean Corpuscular Volume 85.5 fL (80.0-98.0); Mean Platelet Volume 10.7 fL (9.4-12.3); Monocytes Absolute Auto 0.5 X10*3/uL (0.1-1.2); Monocytes Percent Auto 6.1 % (2-11); Neutrophils Absolute Auto 3.2 x10*3/uL (2.0-8.3); Neutrophils Percent Auto 42.4 % (45-73); Platelet Count 282 X10*3/uL (160-400); Red Blood Count 4.21 X10*6/uL (4.20-5.50); White Blood Count 7.5 X10*3/uL (4.8-10.8)
[2024-09-27 21:00] LABS: Alanine Aminotransferase 12 U/L (0-31); Alkaline Phosphatase 64 U/L (39-117); Anion Gap 12 (12-20); Aspartate Amino Transferase 17 U/L (5-31); Bilirubin Total 0.2 mg/dL (0.0-1.0); Blood Urea Nitrogen 14 mg/dL (9-16); Calcium 8.9 mg/dL (8.4-10.2); Carbon Dioxide 21 mmol/L (22-29); Chloride 108 mmol/L (96-108); Creatinine Clr Calc Pharmacy 104.1; Estimated Glomerular Filt Rate > 60; Glucose Random 116 mg/dL (60-115); Magnesium 1.9 mg/dL (1.6-2.6); Potassium 3.4 mmol/L (3.3-5.1); Sodium 138 mmol/L (135-145); Total Protein 7.1 g/dL (6.5-8.0)
[2024-09-27 21:09] LABS: Troponin-I High Sensitivity < 2.7 ng/L (<3.5-17.0)
[2024-09-27 21:24] LABS: Influenza A PCR NEGATIVE (Negative); Influenza B PCR NEGATIVE (Negative); Resp Syncy Virus RNA Qual PCR NEGATIVE (Negative); SARS COV2 PCR INHOUSE NEGATIVE (Negative)
[2024-09-28 00:01] LABS: Appearance Urine Clear; Color Urine Yellow; Glucose Urine UA Negative (Negative); Leukocyte Esterase Urine Moderate (2+) (Negative); Nitrite Urine Negative (Negative); PH 6.5 (5.0-9.0); UMIC TRIGGER UACC YES; Urine Blood Negative (Negative); Urine Ketones Negative (Negative); Urine Protein Negative (Neg-Trace)
[2024-09-28 00:07] LABS: Bacteria Urine 1+ (None Seen); Hyaline Casts Urine 0-2 /LPF (0-2); RBC Urine 0-2 /HPF (0-2); UACC Culture Trigger YES
--- NOTE | 2024-09-28 04:06 | PC.NURSE ---
Pt no answer when called for reassessment.
== END 2024-09-28 04:06 | disposition left against medical advice (07) ==
PROVIDERS: Physician Assistant Medical; Emergency Provider Emergency Medicine; PCP Physician Assistant
DX: J02.9 Acute pharyngitis, unspecified (principal); R42 Dizziness and giddiness; R53.83 Other fatigue; R52 Pain, unspecified; Z03.818 Encounter for observation for suspected exposure to other biological agents ruled out
CPT/HCPCS: 0241U; 80053; 81001; 81003; 83735; 84484; 85025; 87086; 87651; 93005; 99283

== ENCOUNTER → 2024-09-27 20:17 | Outpatient (BNV) | payer OTHER, SELFPAY | PROVIDERS: Emergency Provider Emergency Medicine; PCP Physician Assistant; Visit Provider Internal Medicine Cardiovascular Disease | DX: R42 Dizziness and giddiness (principal) | CPT/HCPCS: 93010 ==

== ENCOUNTER 2024-09-28 11:39 | Outpatient (AMB) | payer OTHER, SELFPAY ==
[2024-09-28 12:46] VITALS: BP 114/70; PULSE 87; TEMP 36.9; O2SAT 98; BMI 28.0
--- NOTE | 2024-09-28 12:46 | AM.OFFWIN_ITS ---
Intake Vital Signs 09/28/24 12:46 Height 5 ft 2 in Weight 153 lb BMI 28.0 BP 114/70 Blood Pressure Location Lt brachial Position Sitting Pulse 87 Pulse Source Pulse Oximeter Temp 98.5 F Temp Source Oral Pulse Oximetry (%) 98 Oxygen Delivery Method Room Air Intake Visit Reasons: EP nausea, body aches Intake Note: Patient here for body aches, loss of appetite, nausea and dizziness that comes and goes and has been going on for about 1 week. Patient Tobacco Use Status: Never used Tobacco Allergies Anesthetics - Amide Type - Select A Allergy (Severe, Verified 09/28/24 12:56) Seizure latex [LATEX] Allergy (Mild, Verified 09/28/24 12:56) RASH levetiracetam [From Keppra] Allergy (Verified 09/28/24 12:56) Chest Pain From [facility] Allergy (Unknown, Uncoded 09/28/24 12:56) SEIZURES onion Allergy (Unknown, Uncoded 09/28/24 12:56) f Do you need a note to return to daycare/school/sports/work: Yes HPI HPI Comments History of Present Illness Details Patient is a 29-year-old female complaining of 7 days of nausea, body aches, reduced appetite, sore throat and dizziness. She states she had a cough then shortness of breath earlier in the week but has since resolved. She denies any shortness of breath, wheezing, vomiting, diarrhea, fever or chills. 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 She did test positive for COVID 3 weeks ago and then felt better and then started up 7 days ago with this illness. She denies a history of asthma or COPD. She tells me there is no chance of . Patient tells me she did go to the emergency department yesterday but we did 10 hours and then left. She does not know what the results of any of the tests that they performed were. [facility] Medical History Seizures Abnormal uterine bleeding Family planning state Otalgia of right ear Gjjnp-epk-staea fetus, third trimester Encounter for suspected problem with growth, ruled out Encounter for supervision of normal in third trimester Rh negative state in antepartum period Depression affecting Fatigue during Encounter for supervision of normal in second trimester Cerumen debris on tympanic membrane of both ears Supervision of normal first Positive urine test COVID-19 Anxiety Tourettes syndrome Anemia Surgical History No pertinent past surgical history Family History Father No problems noted. Mother No problems noted. Maternal Grandmother Diabetes mellitus Maternal Grandfather Diabetes mellitus Paternal Grandmother Diabetes mellitus Paternal Grandfather No problems noted. Social History (Updated 05/03/24 @ 14:14 by Esa Dorado PA-C) Household Members: Family Housing: House Are you a primary behavioral health care coordinator to a significant other at home: No Do you presently have visiting nurse or other home services: No Alcohol intake: unknown Patient Tobacco Use Status: Never used Tobacco e-Cigarette/Vaping Use: Never Used Agree to transfusion: Yes service: No Current occupational status: employed Current occupation: [employer]- Cognitive needs: No Hearing needs: No Vision needs: No Female Reproductive History Menstrual Age of Menarche: 15 Review of Systems Const All systems reviewed & are unremarkable except as noted in HPI and below Physical Exam Vital Signs: Last Vital Signs Temp 98.5 F 09/28/24 12:46 Pulse 87 09/28/24 12:46 BP 114/70 09/28/24 12:46 Pulse Ox 98 09/28/24 12:46 Oxygen Delivery Method Room Air 09/28/24 12:46 BMI result Body Mass Index 28.0 Const General: cooperative, healthy appearing, comfortable and no acute distress Orientation/consciousness: patient oriented x3 Limitations: no limitations HEENT Head: Yes normal to inspection Ears: hearing grossly normal bilaterally, external ears normal and TM's normal bilaterally General nose exam: Normal external nose present, Normal nares present and No nasal discharge present Face and sinus: Yes normal facial exam and Yes sinuses nontender Mouth: Normal oral and palatal mucosa present and moist mucous membranes Throat: Yes tonsils normal, Yes uvula midline and Yes posterior oropharynx abnormal (Erythema) Eyes General: appearance normal, both eyes and all related structures Neck Neck: Yes normal visual inspection Resp Effort & Inspection: normal respiratory effort, able to speak in complete sentences, Actively coughing, no respiratory distress, not tachypneic, no tripod positioning and no use of accessory muscles Auscultation: clear to auscultation bilaterally Cardio Rate: regular rate Rhythm: regular rhythm Heart sounds: normal S1 and S2 Skin General skin exam: no rashes or lesions noted Neuro General: patient oriented x3 Extrem General: Yes normal to inspection and Yes no clubbing, cyanosis or edema Assessment & Plan Assessment & Plan (1) URI (upper respiratory infection): Code(s): J06.9 - Acute upper respiratory infection, unspecified Qualifiers: URI type: unspecified URI Qualified Code(s): J06.9 - Acute upper respiratory infection, unspecified Plan: Vital signs are stable, patient well-appearing and physical exam unremarkable. Encouraged patient to stay out of work for the next few days to avoid spreading this viral illness. Recommended she use [id number] medications to treat her symptoms. Sent flu COVID and RSV testing. Labs from the emergency department yesterday are all within normal limits, strep was negative, flu COVID and RSV were also negative. (2) Nausea: Code(s): R11.0 - Nausea Plan: Sent Zofran to pharmacy, recommended she use as directed to help her stay well hydrated. Plan See above Orders: Orders SARS-CoV2/FLU/RSV Today J06.9 - Acute upper respiratory infection, unspecified Medications: New ondansetron 4 mg PO Q8H PRN 10 tabs 0RF nausea and vomiting Coding Level of Care Code Est Pt Level 4 (82278) Diagnoses Upper respiratory tract infection, unspecified type J06.9 URI type: unspecified URI Nausea R11.0
== END 2024-09-28 13:20 | disposition home or self-care (01) ==
PROVIDERS: PCP Physician Assistant; Visit Provider Physician Assistant
DX: J06.9 Acute upper respiratory infection, unspecified (principal); R11.0 Nausea

== ENCOUNTER 2024-09-28 13:15 | Outpatient (REF) | payer OTHER, SELFPAY ==
[2024-09-28 17:45] LABS: Influenza A PCR NEGATIVE (Negative); Influenza B PCR NEGATIVE (Negative); Resp Syncy Virus RNA Qual PCR NEGATIVE (Negative); SARS COV2 PCR INHOUSE NEGATIVE (Negative)
== END 2024-09-28 13:16 | disposition home or self-care (01) ==
LOC: HO.LAB 13:15
PROVIDERS: Visit Provider Physician Assistant
DX: J06.9 Acute upper respiratory infection, unspecified (principal)
CPT/HCPCS: 0241U

== ENCOUNTER 2024-10-15 13:05 | Emergency (ER) | payer OTHER, SELFPAY ==
[2024-10-15 13:55] VITALS: BP 121/81; PULSE 89; RESP 16; TEMP 36.4; O2SAT 100; BMI 24.7
--- NOTE | 2024-10-15 13:55 | ED_ITS ---
HPI - Overdose General Chief Complaint: Psychiatric Symptoms Stated Complaint: Took 5000 mg of Ibuprofen Time Seen by Provider: 10/15/24 14:03 Source: patient Mode of arrival: ambulatory Limitations: no limitations History of Present Illness ED Provider: Dr. Ruby Jacob HPI Narrative: patient comes to the emergency room complaining of anxiety and depression and suicidal attempt. Patient states that she is going through a lot, declined to disclose anymore information. Patient states that she took a fist full of ibuprofen tablets 600 mg each, believes she took anywhere between 7-10 approximately around 13:00. Patient denies HI. Related Data Previous Rx's ?Medication ?Instructions ?Recorded citalopram 10 mg tablet 15 mg (1.5 x 10 mg) PO DAILY 90 05/03/24 days #135 tabs ondansetron 4 mg disintegrating 4 mg PO Q8H PRN nausea and 09/28/24 tablet vomiting #10 tabs Allergies Allergy/AdvReac Type Severity Reaction Status Date / Time Anesthetics - Amide Type - Allergy Severe Seizure Verified 10/15/24 13:55 Select A latex [LATEX] Allergy Mild RASH Verified 10/15/24 13:55 levetiracetam [From Keppra] Allergy Chest Pain Verified 10/15/24 13:55 From [facility] Allergy Unknown SEIZURES Uncoded 09/28/24 12:56 onion Allergy Unknown f Uncoded 09/28/24 12:56 Review of Systems 2 Review of Systems: Constitutional : No Weight loss, No Fever, No Chills, No Night Sweats, No Fatigue, No Malaise ENT/Mouth : No Hearing loss, No Ear Pain, No Nasal Congestion, No Sinus Pain, No Hoarseness, No sore throat, No Rhinorrhea, No Swallowing Difficulty Eyes: No Eye Pain, No Swelling, No Redness, No Foreign Body, No Discharge, No Vision Changes Cardiovascular : No Chest Pain, No SOB, No Dyspnea on Exertion, No Orthopnea, No Edema, No Palpitations Respiratory : No Cough, No Sputum, No Wheezing, No Smoke Exposure, No Dyspnea Gastrointestinal : No Nausea, No Vomiting, No Diarrhea, No Constipation, No abdominal Pain, No Hematochezia, No Melena Genitourinary : no irregular bleeding, No Dysuria, No Urinary Frequency, No Hematuria, No Urinary Incontinence, No Urgency, No Flank Pain, No Urinary Flow Changes, No Hesitancy Musculoskeletal : No joint pain, No Myalgias, No Joint Swelling Skin : No Skin Lesions, No rash Neuro : No Weakness, No Numbness, No Paresthesias, No Loss of Consciousness, No Dizziness, No Headache Psych : Complaining of anxiety, depression, suicide attempt Heme/Lymph: No Bruising, No Bleeding,No Lymphadenopathy Endocrine : No Polyuria, No Polydipsia, No Temperature Intolerance PMFSH Past Medical History Medical History Seizures Abnormal uterine bleeding Family planning state Otalgia of right ear [id number] fetus, third trimester Encounter for suspected problem with growth, ruled out Encounter for supervision of normal in third trimester Rh negative state in antepartum period Depression affecting Fatigue during Encounter for supervision of normal in second trimester Cerumen debris on tympanic membrane of both ears Supervision of normal first Positive urine test COVID-19 Anxiety Tourettes syndrome Anemia Surgical History No pertinent past surgical history Family History Family History Father No problems noted. Mother No problems noted. Maternal Grandmother Diabetes mellitus Maternal Grandfather Diabetes mellitus Paternal Grandmother Diabetes mellitus Paternal Grandfather No problems noted. Social History Social History Household Members: Family Housing: House Are you a primary insurance healthcare representative to a significant other at home: No Do you presently have visiting nurse or other home services: No Alcohol intake: unknown Patient Tobacco Use Status: Never used Tobacco Smoked in Last 30 Days: No e-Cigarette/Vaping Use: Never Used Use of substances other than those prescribed or required for medical reasons: No Agree to transfusion: Yes Advance Directives: No Advance Directives Information Provided: Yes Healthcare Proxy: No Guardian: No Do you have a plan to hurt others: No Plan service: No Current occupational status: employed Current occupation: [employer]- Cognitive needs: No Hearing needs: No Vision needs: No Physical Exam 2 Vital Signs: Vital Signs: Last Vital Signs Temp 98.4 F 10/15/24 16:42 Pulse 98 10/15/24 16:42 Resp 16 10/15/24 16:42 BP 126/72 10/15/24 16:42 Pulse Ox 99 10/15/24 16:42 O2 Del Method Room Air 10/15/24 16:42 BMI result Body Mass Index 24.7 Const: Other: Appearance: Alert. Oriented X3. No acute distress. well-appearing Eyes: Pupils equal, round and reactive to light. ENT: Pharynx normal. Neck: Normal inspection. Neck supple. No lymph nodes noted. No crepitus CVS: Normal heart rate and rhythm. Pulses normal. Normal S1 and S2 Respiratory: No respiratory distress. Breath sounds normal. No Wheezing. No rales Abdomen: Soft and nontender. No rigidity. No distention. Skin: Skin warm and dry. Normal skin color. Normal skin turgor. Extremities: No lower extremity edema. No Lacerations. No Rash Neuro: Oriented X 3. No motor deficit. No sensory deficit. Moving all extremities. No slurred speech. CN 2 through 12 grossly intact Psych: calm, cooperative, normal affect Course Course Course Narrative: This is an RME: Additional HPI, ROS, PE not included below will be deferred to primary provider. RME assessment and note performed by: Xiao Martinez PA-C This is a 26-gext-slg-female, with a hx of anxiety, who presents to the ER after intentional overdose of ibuprofen to end her life. She was previously seen in the ER on 08/06/2024 after overdosing on celexa. Reporting some abdominal pain. 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 She is reporting some drowsiness and slight abdominal pain but unsure if this is due to hunger. Plan: labs, ekg, poison control Medical Decision Making Medical Decision Making [facility] Narrative: - all of patient's labs pending - patient is on a Section 12, one-to-one - poison control has been contacted my interpretation of labs: Patient's hematology and chemistry at baseline, toxicology negative for salicylates, acetaminophen, drugs of abuse or alcohol - I discussed the patient with the care team, they would like to have the patient get inpatient level of care. Patient is on a Section 12 Differential Diagnosis Differential Diagnoses: The differential diagnosis associated with the presentation includes ( anxiety, depression, suicide attempt) Admission/Observation Consideration of admission/observation: Escalation of care including admission/observation considered ( patient is on a Section 12, care team recommendation: Inpatient level of care) Consult Healthcare Provider Management of the patient was discussed with: Behavioral Health Provider Lab Data MDM Lab Attestation statement: I reviewed the patient's lab results. 10/15/24 15:15 10/15/24 15:15 Labs: Lab Results 10/15/24 10/15/24 Range/Units 15:15 15:19 WBC 10.1 (4.8-10.8) X10*3/uL RBC 4.67 (4.20-5.50) X10*6/uL Hgb 13.1 (12.0-16.0) g/dl Hct 39.7 (37.0-47.0) % MCV 85.0 (80.0-98.0) fL MCH 28.1 (27.0-33.0) pg MCHC 33.0 (31.0-35.0) g/dl RDW 12.5 (11.0-16.0) % Plt Count 323 (160-400) X10*3/uL MPV 10.2 (9.4-12.3) fL Immature Gran % (Auto) 0.3 (0.0-0.4) % Neut % (Auto) 67.2 (45-73) % Lymph % (Auto) 24.8 (20-40) % [place] % (Auto) 4.9 (2-11) % Eos % (Auto) 2.0 (0-4) % Baso % (Auto) 0.8 (0-2) % Lymph # (Auto) 2.5 (1.2-4.9) X10*3/uL [place] # (Auto) 0.5 (0.1-1.2) X10*3/uL Eos # (Auto) 0.2 (0.0-0.4) X10*3/uL Baso # (Auto) 0.1 (0.0-0.2) X10*3/uL Abs Immat Gran (auto) 0.03 (0.00-0.03) X10*3/uL Absolute Neuts (auto) 6.8 (2.0-8.3) x10*3/uL Absolute Nucleated RBC 0.000 (0.0-0.012) X10*3/uL Nucleated RBC % (auto) 0.0 (0.0-0.2) /100WBC VBG pH 7.31 L (7.32-7.43) VBG pCO2 52 mmHg VBG pO2 39 mmHg VBG HCO3 27 H (22-26) mmol/L VBG O2 Saturation 60.0 % VBG Base Excess -0.1 mmol/L Sodium 140 (135-145) mmol/L Potassium 3.8 (3.3-5.1) mmol/L Chloride 106 (96-108) mmol/L Carbon Dioxide 21 L (22-29) mmol/L Anion Gap 17 (12-20) BUN 13 (9-16) mg/dL Creatinine 0.71 (0.5-1.4) mg/dL Estim Creat Clear Calc 102.4 Estimated GFR > 60 Random Glucose 88 (60-115) mg/dL Calcium 9.6 D (8.4-10.2) mg/dL Magnesium 2.3 (1.6-2.6) mg/dL Total Bilirubin 0.3 (0.0-1.0) mg/dL AST 20 (5-31) U/L ALT 11 (0-31) U/L Alkaline Phosphatase 60 (39-117) U/L Total Protein 7.8 (6.5-8.0) g/dL Albumin 4.6 (3.5-5.0) g/dL Lipase 21 (8-78) U/L Beta HCG, Quant < 2 mIU/mL Salicylates < 5.0 L (15-30) mg/dL Urine Opiates Screen Not Detected (Not Detect) Ur Buprenorphine Scrn Not Detected (Not Detect) ng/mL Ur Oxycodone Screen Not Detected (Not Detect) ng/mL Urine Methadone Screen Not Detected (Not Detect) ng/mL Urine Fentanyl Screen Not Detected (Not Detect) Acetaminophen < 3 (<30) mcg/mL Ur Barbiturates Screen Not Detected (Not Detect) Ur Phencyclidine Scrn Not Detected (Not Detect) Ur Amphetamines Screen Not Detected (Not Detect) U Benzodiazepines Scrn Not Detected (Not Detect) Urine Cocaine Screen Not Detected (Not Detect) U Marijuana (THC) Screen Not Detected (Not Detect) Ethyl Alcohol < 10 mg/dL Critical Care Time Critical Care Time Critical Care Time: Yes Total Critical Care Time: 60 Attestation: I have personally provided critical care time. Time includes review of lab data, radiology results, discussion with consultants, and monitoring for potential decompensation. Intervention performed as documented. Discharge Plan Discharge Clinical Impression: Suicide attempt Patient Disposition: Still a Patient Prescriptions: No Action citalopram 10 mg tablet 15 mg PO DAILY 90 Days Qty: 135 3RF Rx Instructions: 15 mg PO daily; ondansetron 4 mg tablet,disintegrating 4 mg PO Q8H PRN (Reason: nausea and vomiting) Qty: 10 0RF Interventions: [place]-Suicide Risk Severity Scale Last Done: 10/15/24 15:07 Print Language: Vincentian
--- NOTE | 2024-10-15 14:00 | ECG_ITS ---
Test Reason : OD Blood Pressure : / mmHG Vent. Rate : 098 BPM Atrial Rate : 098 BPM P-R Int : 140 ms QRS Dur : 082 ms QT Int : 352 ms P-R-T Axes : 061 077 000 degrees QTc Int : 449 ms Normal sinus rhythm T wave abnormality, consider inferior ischemia Nonspecific ST and T wave abnormality anterior leads Abnormal ECG When compared with ECG of 27-SEP-2024 20:16, T wave inversion now evident in Inferior leads Referred By: Xiao Martinez Electronically Signed By:NOEL MOSQUERA
--- NOTE | 2024-10-15 15:18 | PC.NURSE ---
calm and cooperative. in bass bed with sitter.
[2024-10-15 15:20] LABS: MANUAL DIFF FLAG NO
[2024-10-15 15:22] LABS: Basophils Absolute Auto 0.1 X10*3/uL (0.0-0.2); Basophils Percent Auto 0.8 % (0-2); Eosinophils Absolute Auto 0.2 X10*3/uL (0.0-0.4); Hematocrit 39.7 % (37.0-47.0); Hemoglobin 13.1 g/dl (12.0-16.0); Imm Gran Abs Auto 0.03 X10*3/uL (0.00-0.03); Imm Gran Pct Auto 0.3 % (0.0-0.4); Lymphocytes Absolute Auto 2.5 X10*3/uL (1.2-4.9); Lymphocytes Percent Auto 24.8 % (20-40); Mean Corpuscular Hemoglobin 28.1 pg (27.0-33.0); Mean Platelet Volume 10.2 fL (9.4-12.3); Monocytes Absolute Auto 0.5 X10*3/uL (0.1-1.2); Monocytes Percent Auto 4.9 % (2-11); Neutrophils Absolute Auto 6.8 x10*3/uL (2.0-8.3); Neutrophils Percent Auto 67.2 % (45-73); Platelet Count 323 X10*3/uL (160-400); Red Blood Count 4.67 X10*6/uL (4.20-5.50); Red Cell Distribution Width 12.5 % (11.0-16.0); White Blood Count 10.1 X10*3/uL (4.8-10.8)
[2024-10-15 15:23] LABS: Venous Blood Gas Refer to POC result
[2024-10-15 15:24] LABS: VBG Base Excess -0.1 mmol/L; VBG HCO3 27 mmol/L (22-26); VBG pCO2 52 mmHg; VBG pH 7.31 (7.32-7.43); VBG pO2 39 mmHg
[2024-10-15 15:36] LABS: Amphetamine Screen Urine Not Detected (Not Detect); Barbiturates, Urine Not Detected (Not Detect); Benzodiazepines Screen Urine Not Detected (Not Detect); Buprenorphine Scr Not Detected (Not Detect); Cannabinoid Screen Urine Not Detected (Not Detect); Cocaine Screen Urine Not Detected (Not Detect); Fentanyl, urine Not Detected (Not Detect); Methadone Screen, Urine Not Detected (Not Detect); Opiate Screen Urine Not Detected (Not Detect); Oxycodone Screen Urine Not Detected (Not Detect); Phencyclidine Screen Urine Not Detected (Not Detect)
[2024-10-15 15:38] LABS: Ethanol < 10 mg/dL
[2024-10-15 15:40] LABS: Alanine Aminotransferase 11 U/L (0-31); Albumin Level 4.6 g/dL (3.5-5.0); Anion Gap 17 (12-20); Aspartate Amino Transferase 20 U/L (5-31); Bilirubin Total 0.3 mg/dL (0.0-1.0); Blood Urea Nitrogen 13 mg/dL (9-16); Calcium 9.6 mg/dL (8.4-10.2); Carbon Dioxide 21 mmol/L (22-29); Chloride 106 mmol/L (96-108); Creatinine Clr Calc Pharmacy 102.4; Estimated Glomerular Filt Rate > 60; Glucose Random 88 mg/dL (60-115); Lipase 21 U/L (8-78); Magnesium 2.3 mg/dL (1.6-2.6); Potassium 3.8 mmol/L (3.3-5.1); Sodium 140 mmol/L (135-145); Total Protein 7.8 g/dL (6.5-8.0)
[2024-10-15 15:46] LABS: HCG Quantitative < 2 mIU/mL
--- NOTE | 2024-10-15 15:51 | PC.NURSE ---
posion control states repeat VBG and Chem after PO fluids and 4 hrs from first draw. Consider IV fluids.
[2024-10-15 16:13] LABS: Acetaminophen LAB < 3 mcg/mL (<30); Salicylate < 5.0 mg/dL (15-30)
[2024-10-15 16:28] LABS: Alkaline Phosphatase 60 U/L (39-117)
[2024-10-15 16:42] VITALS: BP 126/72; PULSE 98; RESP 16; TEMP 36.9; O2SAT 99
--- NOTE | 2024-10-15 16:47 | PC.NURSE ---
Report to Norma RIVAS in Pod. Pt will transfer there and await repeat labs. DARIN.
--- NOTE | 2024-10-15 16:59 | PC.NURSE ---
report received from Julianna RIVAS. Pt moved to 05. Given 12oz OJ and 12oz water. Asked to push PO fluids by poison control. Also given turkey sandwich
[2024-10-15] MEDS: Melatonin 3 MG TABLET 6 MG PO (20:09)
[2024-10-15 21:09] LABS: VBG Base Excess -1.3 mmol/L; VBG HCO3 23 mmol/L (22-26); VBG pCO2 38 mmHg; VBG pH 7.39 (7.32-7.43); VBG pO2 129 mmHg
[2024-10-15 21:15] LABS: Venous Blood Gas Refer to POC result
[2024-10-15 21:21] LABS: Alanine Aminotransferase 15 U/L (0-31); Albumin Level 4.4 g/dL (3.5-5.0); Alkaline Phosphatase 57 U/L (39-117); Anion Gap 14 (12-20); Aspartate Amino Transferase 16 U/L (5-31); Bilirubin Total 0.2 mg/dL (0.0-1.0); Blood Urea Nitrogen 11 mg/dL (9-16); Calcium 9.4 mg/dL (8.4-10.2); Carbon Dioxide 20 mmol/L (22-29); Chloride 109 mmol/L (96-108); Creatinine Clr Calc Pharmacy 92.1; Estimated Glomerular Filt Rate > 60; Glucose Random 120 mg/dL (60-115); Potassium 4.1 mmol/L (3.3-5.1); Sodium 139 mmol/L (135-145); Total Protein 7.4 g/dL (6.5-8.0)
[2024-10-16 02:02] VITALS: BP 116/63; PULSE 85; RESP 16; TEMP 36.5; O2SAT 97
--- NOTE | 2024-10-16 08:12 | PC.NURSE ---
Assumed care of patient at 0645, patient appears to be in no apparent distress this am, calm and cooperative, offering no complaints of pain. Pt able to make needs known without issue. Now resting in bed in 5, continue plan of care for inpatient bedsearch
--- NOTE | 2024-10-16 08:23 | PHA.MEDREC ---
Pharmacy Consult ? Medication Reconciliation Pharmacy has completed the medication reconciliation. Pharmacy has reviewed med rec done by nursing. Confirmed citalopram is only medication for this patient (15 mg) at this time.
[2024-10-16] MEDS: Escitalopram Oxalate 5 MG TABLET 7.5 MG PO (09:48)
--- NOTE | 2024-10-16 10:48 | MHC.CARE ---
Patient accepted to [facility] [address] [place] [address] Goff
--- NOTE | 2024-10-16 13:16 | MHC.CARE ---
admission to [facility] was cancelled by [facility] release coordinator Sharita. Facility aware.
--- NOTE | 2024-10-16 14:36 | PC.NURSE ---
Patient continues to be remain calm and cooperative, now with a visitor.
--- NOTE | 2024-10-16 16:51 | MHC.CARE ---
pt is [facility] bedsearch. Referred to [facility], activated referral at 1515, spoke with Judith
--- NOTE | 2024-10-16 17:05 | MHC.CARE ---
CARE team contacted [facility] at 1705, staff report pt has been accepted to [facility]. they will be contacting [facility] staff to coordinate admission
[2024-10-16 18:02] VITALS: BP 143/71; PULSE 87; RESP 20; TEMP 36.8; O2SAT 98
--- NOTE | 2024-10-16 18:04 | MHC.CARE ---
CARE team was updated by [facility] at 1800, that Pt was accepted for 10/17/24 with a 10am admission time. Pt to be discharged on 10/17/24 in the morning to return home to get her medications and then present to [facility] for admission.
[2024-10-16] MEDS: Melatonin 3 MG TABLET 6 MG PO (20:36)
[2024-10-17 06:18] VITALS: BP 98/57; PULSE 80; RESP 18; TEMP 36.8; O2SAT 98
--- NOTE | 2024-10-17 07:18 | PC.NURSE ---
Assumed care of patient at 0645, patient appears to be in no apparent distress this am, ambulating around pod independently offering no complaints. Continue plan of care for respite at 10am
[2024-10-17 08:45] VITALS: BP 97/68; PULSE 76; RESP 16; TEMP 36.9; O2SAT 99
--- NOTE | 2024-10-17 09:11 | PC.NURSE ---
Pt requesting to take her regularly scheduled medication at home, 0900 medication documented against here. Pt given discharge instructions, verbalizes understanding of need to bring home med to respite
== END 2024-10-17 09:12 | disposition other institution (70) ==
PROVIDERS: Physician Assistant Medical; Emergency Provider Emergency Medicine; PCP Physician Assistant
DX: F33.1 Major depressive disorder, recurrent, moderate (principal); F41.9 Anxiety disorder, unspecified; R45.851 Suicidal ideations; R94.31 Abnormal electrocardiogram [ECG] [EKG]; R10.2 Pelvic and perineal pain; Z79.899 Other long term (current) drug therapy; Z51.81 Encounter for therapeutic drug level monitoring
CPT/HCPCS: 36415; 80053; 80143; 80179; 80307; 82803; 83690; 83735; 84702; 85025; 93005; 99285; S9485

== ENCOUNTER → 2024-10-15 14:00 | Outpatient (BNV) | payer OTHER, SELFPAY | PROVIDERS: Emergency Provider Emergency Medicine; PCP Physician Assistant; Visit Provider Internal Medicine | DX: R94.31 Abnormal electrocardiogram [ECG] [EKG] (principal) | CPT/HCPCS: 93010 ==

== ENCOUNTER 2024-11-17 00:05 | Emergency (ER) | payer OTHER, SELFPAY ==
[2024-11-17] VITALS (7 sets, daily range): BP systolic 108–138; BP diastolic 59–84; PULSE 60–167; RESP 14–24; TEMP 36.7–37; O2SAT 95–100; BMI 29.1
--- NOTE | 2024-11-17 | ECG_ITS ---
Test Reason : TACHY Blood Pressure : / mmHG Vent. Rate : 105 BPM Atrial Rate : 105 BPM P-R Int : 128 ms QRS Dur : 084 ms QT Int : 354 ms P-R-T Axes : 063 080 -30 degrees QTc Int : 467 ms Sinus tachycardia Possible Lateral infarct , age undetermined Abnormal ECG When compared with ECG of 17-NOV-2024 00:16, Nonspecific T wave abnormality now evident in Anterolateral leads Referred By: Noel Mills Electronically Signed By:MICHAELA ANDREWS MD
--- NOTE | ~2024-11-17 | CT_ITS ---
CLINICAL HISTORY: Seizure, head strike, R O fracture, bleed CT head without contrast Comparison: CT/SR - CT HEAD/BRAIN WO IV CON - 04/16/23 10:38 EDT Findings: No intra-axial mass, midline shift, hydrocephalus, or acute hemorrhage. No significant atrophy-like change or white matter disease. The visualized paranasal sinuses and mastoid air cells are normal. The orbits are within normal limits. There is no acute fracture. IMPRESSION: 1. No acute intracranial findings This document has been electronically signed by: Chacorta Deutsch MD on 11/17/2024 01:26:24
--- NOTE | ~2024-11-17 | CT_ITS ---
CLINICAL HISTORY: Seizure, head strike, R O fracture CT cervical spine without contrast Comparison: None Findings: There is motion artifact. Within the limitations of motion, there is no cervical spine fracture. Vertebral alignment is within normal limits. No significant degenerative change. No acute fractures or dislocations. No acute findings on limited view of the intracranial contents. No cervical fluid collections or masses. No consolidation or effusion at the lung apices. IMPRESSION: No acute findings. This document has been electronically signed by: Chacorta Deutsch MD on 11/17/2024 01:20:57
--- NOTE | 2024-11-17 00:08 | ECG_ITS ---
Test Reason : SYNCOPE Blood Pressure : / mmHG Vent. Rate : 100 BPM Atrial Rate : 100 BPM P-R Int : 132 ms QRS Dur : 088 ms QT Int : 356 ms P-R-T Axes : 055 070 003 degrees QTc Int : 459 ms Normal sinus rhythm Normal ECG When compared with ECG of 15-OCT-2024 16:29, No significant change was found Referred By: Noel Mills Electronically Signed By:MICHAELA ANDREWS MD
[2024-11-17 00:20] LABS: Venous Blood Gas Refer to POC result
[2024-11-17 00:21] LABS: VBG HCO3 20 mmol/L (22-26); VBG pCO2 29 mmHg; VBG pH 7.45 (7.32-7.43); VBG pO2 213 mmHg
[2024-11-17] MEDS: 0.9 % Sodium Chloride 1,000 ML 999 ML IV (00:21)
[2024-11-17 00:22] LABS: MANUAL DIFF FLAG NO
--- NOTE | 2024-11-17 00:22 | ED.SEIZURE ---
HPI - Seizure General Chief Complaint: Syncope Stated Complaint: seizure Time Seen by Provider: 11/17/24 00:07 Source: patient and family Mode of arrival: ambulatory Limitations: no limitations History of Present Illness ED Provider: Dr. Noel Mills HPI Narrative: 29-year-old female with a past medical history of seizure disorder and anxiety who was in the emergency department as a visitor and had a syncopal episode with uncontrolled shaking. The patient's boyfriend had an overdose and went into cardiac arrest outside of the girlfriend's house. The boyfriend was resuscitated after 35 minutes of CPR, was intubated, on a ventilator and pressors in the emergency department . The patient and the boyfriend's family came in to the room to see the boyfriend. The patient then had a syncopal episode where she fell backwards and struck her head on the floor she then began shaking violently. Patient was given Ativan 2 mg IM, lifted onto a stretcher and brought into a room. The nurses established an IV in the patient was given a 2nd dose of Ativan 2 mg IV. Patient woke up and had no postictal period, she told me that when ever she gets very anxious or stressed out she has seizures. Seizure History: Yes Related Data Previous Rx's ?Medication ?Instructions ?Recorded citalopram 10 mg tablet 15 mg (1.5 x 10 mg) PO DAILY 90 05/03/24 days #135 tabs lorazepam 1 mg tablet (Ativan) 1 mg PO TID PRN anxiety #10 tabs 11/17/24 Allergies Allergy/AdvReac Type Severity Reaction Status Date / Time Anesthetics - Amide Type - Allergy Severe Seizure Verified 11/17/24 00:16 Select A latex [LATEX] Allergy Mild RASH Verified 11/17/24 00:16 levetiracetam [From Keppra] Allergy Chest Pain Verified 11/17/24 00:16 From [facility] Allergy Unknown SEIZURES Uncoded 11/17/24 00:16 onion Allergy Unknown f Uncoded 11/17/24 00:16 Review of Systems Review of Systems: Yes all other systems are reviewed and are negative PMFSH Past Medical History Medical History Seizures Abnormal uterine bleeding Family planning state Otalgia of right ear Abakd-qib-[id number] fetus, third trimester Encounter for suspected problem with growth, ruled out Encounter for supervision of normal in third trimester Rh negative state in antepartum period Depression affecting Fatigue during Encounter for supervision of normal in second trimester Cerumen debris on tympanic membrane of both ears Supervision of normal first Positive urine test COVID-19 Anxiety Tourettes syndrome Anemia Surgical History No pertinent past surgical history Family History Family History Father No problems noted. Mother No problems noted. Maternal Grandmother Diabetes mellitus Maternal Grandfather Diabetes mellitus Paternal Grandmother Diabetes mellitus Paternal Grandfather No problems noted. Social History Social History Household Members: Family Housing: House Are you a primary pet care technician to a significant other at home: No Do you presently have visiting nurse or other home services: No Alcohol intake: unknown Patient Tobacco Use Status: Never used Tobacco e-Cigarette/Vaping Use: Never Used Agree to transfusion: Yes Advance Directives: No service: No Current occupational status: employed Current occupation: [employer]- Cognitive needs: No Hearing needs: No Vision needs: No Physical Exam Vital Signs: Vital Signs: Last Vital Signs Temp 98.2 F 11/17/24 07:29 Pulse 110 H 11/17/24 07:29 Resp 18 11/17/24 07:29 BP 126/75 11/17/24 07:29 Pulse Ox 100 11/17/24 07:29 O2 Del Method Room Air 11/17/24 07:29 BMI result Body Mass Index 29.1 Vital signs were normal. Exam: General: Awake, alert in no distress Head: Normocephalic, atraumatic EENT: PERRL, Lids normal, sclera normal, conjunctiva normal, nose normal , ears normal, throat without erythema or exudates Neck: Supple, no adenopathy Lung: breath sounds symmetric, no wheezing, rales or rhonchi Chest: symmetric movement, nontender Heart: regular rate and rhythm, normal S1, S2 no murmurs or rubs Abdomen: soft, non-tender, nondistended, normal bowel sounds Back: no vertebral tenderness, no CVAT Extremities: no deformities, moves all extremities symmetrically Neuro: Awake, alert, oriented, normal speech, cranial nerves intact, moves all extremities symmetrically Psych: Pleasant, cooperative Medications Administered Discontinued Medications Generic Name Dose Route Start Last Admin Trade Name Radha PRN Reason Stop Dose Admin Diphenhydramine HCl 25 mg 11/17/24 02:23 11/17/24 02:33 Diphenhydramine Hcl 50 Mg/Ml Vial IVPUSH 11/17/24 02:24 25 mg ONCE ONE Administration Sodium Chloride 1,000 mls @ 999 mls/hr 11/17/24 00:07 11/17/24 03:46 Ns IV 11/17/24 01:07 Infused .Q1H1M STA Infusion Ketorolac Tromethamine 15 mg 11/17/24 01:33 11/17/24 01:41 Ketorolac Tromethamine 15 Mg/Ml Vial IVPUSH 11/17/24 01:34 15 mg ONCE STA Administration Lorazepam 2 mg 11/17/24 00:22 11/17/24 00:24 Lorazepam 2 Mg/Ml Vial IM 11/17/24 00:23 2 mg STAT STA Administration Lorazepam 2 mg 11/17/24 00:22 11/17/24 00:25 Lorazepam 2 Mg/Ml Vial IVPUSH 11/17/24 00:23 2 mg ONCE ONE Administration Lorazepam 1 mg 11/17/24 01:41 11/17/24 01:51 Lorazepam 2 Mg/Ml Vial IVPUSH 11/17/24 01:42 1 mg STAT STA Administration Medical Decision Making Medical Decision Making [facility] Narrative: 29-year-old female with a past medical history of seizure disorder and anxiety who was in the emergency department as a visitor for her boyfriend who had an overdose, cardiac arrest and was intubated on a ventilator. When the patient came into the room to see the patient she had a syncopal episode and was shaking uncontrollably. Patient appeared to be having a seizure versus pseudo-seizure. She was treated with IM and IV Ativan and woke up with no postictal period. Differential diagnosis: ?Includes but is not limited to seizure, seizure seizure, anxiety attack, closed head injury, skull fracture, intracranial bleed, neck fracture Course: 01:43 My interpretation patient's laboratory evaluation as follows: WBC was elevated 14,000. Serum bicarb was low at 17. Lactic acid was high at 3.3. Glucose was normal 125. test was negative. LFTs were normal. These abnormalities are consistent with her violent shaking. Patient's syncopal episode and shake he was most likely caused by acute anxiety/panic attack causing pseudo-seizure. CT scan of the head revealed no acute findings. CT scan of the cervical spine revealed no fractures. Patient was complaining of neck pain and went back into the room she was having a 2nd panic attack therefore I ordered Toradol 15 mg IV and Ativan 1 mg IV. 07:19 Patient was awake and alert in his feeling better. Patient did have tachycardia which I believe is secondary to her anxiety. EKG revealed a sinus tach with a rate of 105 but she did go up to as high as 160 beats per minute. I did talk to the intensive care unit and the patient's boyfriend is still alive and the patient does want to go to the ICU. Patient will be discharged from the emergency department and escorted to the ICU waiting area. Given the stressful situation of the patient is in, I did prescribe Ativan 1 mg t.i.d. as needed for anxiety and stress. Patient was given printed and verbal instructions and discharged Admission/Observation Consideration of admission/observation: Escalation of care including admission/observation considered (Yes) Lab Data MDM Lab Attestation statement: I reviewed the patient's lab results. 11/17/24 00:05 11/17/24 00:05 Labs: Lab Results 11/17/24 11/17/24 11/17/24 Range/Units 00:05 00:15 02:48 WBC 14.0 H (4.8-10.8) X10*3/uL RBC 4.45 (4.20-5.50) X10*6/uL Hgb 13.3 (12.0-16.0) g/dl Hct 37.3 (37.0-47.0) % MCV 83.8 (80.0-98.0) fL MCH 29.9 (27.0-33.0) pg MCHC 35.7 H (31.0-35.0) g/dl RDW 13.0 (11.0-16.0) % Plt Count 334 (160-400) X10*3/uL MPV 10.6 (9.4-12.3) fL Immature Gran % (Auto) 0.6 H (0.0-0.4) % Neut % (Auto) 71.2 (45-73) % Lymph % (Auto) 19.7 L (20-40) % [place] % (Auto) 5.8 (2-11) % Eos % (Auto) 1.9 (0-4) % Baso % (Auto) 0.8 (0-2) % Lymph # (Auto) 2.8 (1.2-4.9) X10*3/uL [place] # (Auto) 0.8 (0.1-1.2) X10*3/uL Eos # (Auto) 0.3 (0.0-0.4) X10*3/uL Baso # (Auto) 0.1 (0.0-0.2) X10*3/uL Abs Immat Gran (auto) 0.08 H (0.00-0.03) X10*3/uL Absolute Neuts (auto) 10.0 H (2.0-8.3) x10*3/uL Absolute Nucleated RBC 0.000 (0.0-0.012) X10*3/uL Nucleated RBC % (auto) 0.0 (0.0-0.2) /100WBC PT 11.0 (10.9-12.4) SEC INR 0.9 (0.9-1.1) APTT 30.5 (26.0-36.8) SEC VBG pH 7.45 H (7.32-7.43) VBG pCO2 29 mmHg VBG pO2 213 mmHg VBG HCO3 20 L (22-26) mmol/L VBG O2 Saturation 100.0 % VBG Base Excess -2.0 mmol/L Sodium 140 (135-145) mmol/L Potassium 3.7 (3.3-5.1) mmol/L Chloride 108 (96-108) mmol/L Carbon Dioxide 17 L (22-29) mmol/L Anion Gap 19 (12-20) BUN 15 (9-16) mg/dL Creatinine 0.70 (0.5-1.4) mg/dL Estim Creat Clear Calc 112.3 Estimated GFR > 60 Random Glucose 125 H (60-115) mg/dL Lactic Acid 3.3 H* (0.5-2.0) mmol/L Lactic Acid F/U @ 2Hr 0.9 (0.5-2.0) mmol/L Calcium 9.6 (8.4-10.2) mg/dL Magnesium 1.9 (1.6-2.6) mg/dL Total Bilirubin 0.2 (0.0-1.0) mg/dL AST 23 (5-31) U/L ALT 10 (0-31) U/L Alkaline Phosphatase 65 (39-117) U/L Total Creatine Kinase 70 (26-140) U/L Total Protein 7.8 (6.5-8.0) g/dL Albumin 4.6 (3.5-5.0) g/dL Lipase 15 (8-78) U/L Beta HCG, Quant < 2 mIU/mL Hold Yellow Top See Note Radiology Impression Discussion of test interpretation with radiology: I have reviewed the radiologist's reading. Radiologist Impression: CT cervical spine without contrast Comparison: None Findings: There is motion artifact. Within the limitations of motion, there is no cervical spine fracture. Vertebral alignment is within normal limits. No significant degenerative change. No acute fractures or dislocations. No acute findings on limited view of the intracranial contents. No cervical fluid collections or masses. No consolidation or effusion at the lung apices. IMPRESSION: No acute findings. This document has been electronically signed by: Chacorta Deutsch MD on 11/17/2024 01:20:57 CT head without contrast Comparison: CT/SR - CT HEAD/BRAIN WO IV CON - 04/16/23 10:38 EDT Findings: No intra-axial mass, midline shift, hydrocephalus, or acute hemorrhage. No significant atrophy-like change or white matter disease. The visualized paranasal sinuses and mastoid air cells are normal. The orbits are within normal limits. There is no acute fracture. IMPRESSION: 1. No acute intracranial findings This document has been electronically signed by: Chacorta Deutsch MD on 11/17/2024 01:26:24 Independent Historian Clinical information obtained from an independent historian. History obtained from or confirmed by: Other (Family) Prescription Management I considered prescription management with: Other (Anti anxiolytic: Ativan) Chronic Conditions Patient?s care impacted by: Other (Anxiety, panic disorder) Critical Care Time Critical Care Time Critical Care Time: Yes Total Critical Care Time: 35 Attestation: Critical Care: The patient was critically ill with a high probability of imminent or life threatening deterioration. I spent greater than 30 minutes of discontinuous time evaluating the patient,delivering critical care at the bedside, discussing and evaluating pertinent data with consultants. Critical care time does not include time spent performing separately billable procedures or teaching. Total time spent performing critical care was 35 minutes. Discharge Plan Discharge Clinical Impression: Panic attack, Psychogenic nonepileptic seizure, Closed head injury Fall Qualifiers: Encounter type: initial encounter Qualified Code(s): W19.XXXA - Unspecified fall, initial encounter Patient Disposition: Home, Self-Care Instructions: Head Injury (ED), Panic Attack (ED) Additional Instructions: You had a severe panic attack which cause you to pass out and hit your head. The CT scan of your head and neck revealed no skull fracture, bleeding in the brain or neck fracture. Your blood work was unremarkable. Please follow the closed head injury instructions. I am prescribing Ativan 1 mg pills, 1 pill 3 times a day as needed for stress and anxiety. The prescription was sent to the [facility] on [address] in [place] Continue taking your other medications as prescribed. Follow-up with your doctor in 2 days. Please return to the emergency department if your symptoms get worse or if you develop any symptoms that are concerning to you. Prescriptions: New lorazepam [Ativan] 1 mg tablet 1 mg PO TID PRN (Reason: anxiety) Qty: 10 0RF Rx Instructions: Patient may request partial fill No Action citalopram 10 mg tablet 15 mg PO DAILY 90 Days Qty: 135 3RF Rx Instructions: 15 mg PO daily; Interventions: ED Discharge Assessment Last Done: 11/17/24 07:29 Discharge Date/Time: 11/17/24 07:35 Print Language: [place] Citizen
[2024-11-17] MEDS: LORazepam 2 MG/ML VIAL IM (00:24)
[2024-11-17] MEDS: LORazepam 2 MG/ML VIAL IVPUSH (00:25)
[2024-11-17 00:27] LABS: Basophils Absolute Auto 0.1 X10*3/uL (0.0-0.2); Basophils Percent Auto 0.8 % (0-2); Eosinophils Absolute Auto 0.3 X10*3/uL (0.0-0.4); Eosinophils Percent Auto 1.9 % (0-4); Hematocrit 37.3 % (37.0-47.0); Hemoglobin 13.3 g/dl (12.0-16.0); Imm Gran Abs Auto 0.08 X10*3/uL (0.00-0.03); Imm Gran Pct Auto 0.6 % (0.0-0.4); Lymphocytes Absolute Auto 2.8 X10*3/uL (1.2-4.9); Lymphocytes Percent Auto 19.7 % (20-40); Mean Corpuscular HGB Conc 35.7 g/dl (31.0-35.0); Mean Corpuscular Hemoglobin 29.9 pg (27.0-33.0); Mean Corpuscular Volume 83.8 fL (80.0-98.0); Mean Platelet Volume 10.6 fL (9.4-12.3); Monocytes Absolute Auto 0.8 X10*3/uL (0.1-1.2); Monocytes Percent Auto 5.8 % (2-11); Neutrophils Percent Auto 71.2 % (45-73); Platelet Count 334 X10*3/uL (160-400); Red Blood Count 4.45 X10*6/uL (4.20-5.50)
[2024-11-17 00:37] LABS: INTERNATIONAL NORM RATIO 0.9 (0.9-1.1)
[2024-11-17 00:39] LABS: Partial Thromboplastin Time 30.5 SEC (26.0-36.8)
[2024-11-17 00:49] LABS: Lactic Acid 3.3 mmol/L (0.5-2.0)
[2024-11-17 00:55] LABS: Alanine Aminotransferase 10 U/L (0-31); Albumin Level 4.6 g/dL (3.5-5.0); Alkaline Phosphatase 65 U/L (39-117); Anion Gap 19 (12-20); Aspartate Amino Transferase 23 U/L (5-31); Bilirubin Total 0.2 mg/dL (0.0-1.0); Blood Urea Nitrogen 15 mg/dL (9-16); Calcium 9.6 mg/dL (8.4-10.2); Carbon Dioxide 17 mmol/L (22-29); Chloride 108 mmol/L (96-108); Creatinine Clr Calc Pharmacy 112.3; Estimated Glomerular Filt Rate > 60; Glucose Random 125 mg/dL (60-115); HCG Quantitative < 2 mIU/mL; Lipase 15 U/L (8-78); Magnesium 1.9 mg/dL (1.6-2.6); Potassium 3.7 mmol/L (3.3-5.1); Sodium 140 mmol/L (135-145); Total Protein 7.8 g/dL (6.5-8.0)
[2024-11-17] MEDS: Ketorolac Tromethamine 15 MG/ML VIAL IVPUSH (01:41)
[2024-11-17] MEDS: LORazepam 2 MG/ML VIAL 1 MG IVPUSH (01:51)
--- NOTE | 2024-11-17 02:16 | PC.NURSE ---
pt having a lot of involuntary movements which she states she never has, pt given toradol for neck pain and ativan for anxiety and movements. pt states she is very dizzy and doesnt think she can walk. aware
[2024-11-17 02:21] LABS: Reflex Lactate? Lactic Acid Added
[2024-11-17] MEDS: diphenhydrAMINE HCL 50 MG/ML VIAL 25 MG IVPUSH (02:33)
[2024-11-17 03:09] LABS: ~Lactic Acid-LAB USE ONLY 0.9 mmol/L (0.5-2.0)
--- NOTE | 2024-11-17 07:07 | PC.NURSE ---
this RN resumed care of pt at 0645. pt noted to be tachycardic on the monitor during shift change. upon assessment, pt noted to be standing on the side of the bed. pt verbalizes feeling extremely anxious/having palpitations. pt any chest pain/sob/dizziness/lightheadedness. pt assisted back into bed. ekg obtained/provided to provider. otherwise vss and up to date. on RA w/o difficulty. no sob/wob noted. respirations even/unlabored. seizure pads remain in place as precaution. plan of care ongoing. call marks placed within reach.
== END 2024-11-17 07:35 | disposition home or self-care (01) ==
PROVIDERS: Emergency Provider Emergency Medicine Emergency Medical Services; PCP Physician Assistant
DX: F41.0 Panic disorder [episodic paroxysmal anxiety] (principal); R56.9 Unspecified convulsions; F41.9 Anxiety disorder, unspecified; F95.2 Tourette's disorder; Z79.899 Other long term (current) drug therapy
CPT/HCPCS: 36415; 70450; 72125; 80053; 82550; 82803; 83605; 83690; 83735; 84702; 85025; 85610; 85730; 93005; 96361; 96372; 96374; 96375; 96376; 99285; J1200; J1885; J2060

== ENCOUNTER → 2024-11-17 00:08 | Outpatient (BNV) | payer OTHER, SELFPAY | PROVIDERS: Emergency Provider Emergency Medicine Emergency Medical Services; PCP Physician Assistant; Visit Provider Internal Medicine Cardiovascular Disease | DX: R00.0 Tachycardia, unspecified (principal); R94.31 Abnormal electrocardiogram [ECG] [EKG]; R55 Syncope and collapse; R56.9 Unspecified convulsions | CPT/HCPCS: 93010 ==

== ENCOUNTER → 2024-11-17 00:08 | Outpatient (BNV) | payer OTHER, SELFPAY | PROVIDERS: Emergency Provider Emergency Medicine Emergency Medical Services; PCP Physician Assistant; Visit Provider Radiology Diagnostic Radiology | DX: R56.9 Unspecified convulsions (principal); S09.90XA Unspecified injury of head, initial encounter | CPT/HCPCS: 70450; 72125 ==

== ENCOUNTER 2024-11-17 14:47 | Emergency (ER) | payer OTHER, SELFPAY ==
[2024-11-17 14:48] VITALS: BP 127/79; PULSE 98; RESP 20; TEMP 37.7; O2SAT 98; BMI 28.7
--- NOTE | 2024-11-17 14:52 | ED.GENADULT ---
HPI - General Adult General Chief complaint: Seizure Stated complaint: seizure Time Seen by Provider: 11/17/24 14:48 History of Present Illness ED Provider: Dyana LAROSE narrative: The patient is a 29-year-old female who has a history of seizure-like activity in the past.. Reviewing old records it seems as though she has been thought to have nonepileptic seizures. It seems at 1 point she was prescribed levetiracetam from the emergency room but it seems as though she has never had any formal neurology follow up and she is not currently on any antiepileptic medication. The patient was seen here last night after she had seizure-like activity in the emergency room as a visitor. She had come to the emergency room because her boyfriend had had a cardiac arrest. When she saw her boyfriend being resuscitated she apparently had an episode of seizure-like activity. She was given IM lorazepam and evaluated with labs and a head CT. The ER doctor who saw her last night indicated that there did not seem to be a postictal phase after the seizure-like activity stopped. She had a negative head CT. She was discharged. Today the patient went to the ICU to visit her boyfriend who was on a ventilator.. Apparently she had another episode of seizure-like activity in the ICU. A rapid response was called and she was brought to the hospital. The patient says that she has a headache that she has had since this morning when she had her 1st episode of a seizure-like activity. She says she believes she hit her head on that occasion. On this occasion she does not believe she has any new head pain. She does not think she had any significant head injury here and I have not heard that any witnesses saw her have any significant head injury. She has no neck pain or pain with moving her neck. She has no weakness or numbness in her extremities. Related Data Previous Rx's ?Medication ?Instructions ?Recorded citalopram 10 mg tablet 15 mg (1.5 x 10 mg) PO DAILY 90 05/03/24 days #135 tabs lorazepam 1 mg tablet (Ativan) 1 mg PO TID PRN anxiety #10 tabs 11/17/24 Allergies Allergy/AdvReac Type Severity Reaction Status Date / Time Anesthetics - Amide Type - Allergy Severe Seizure Verified 11/17/24 14:52 Select A latex [LATEX] Allergy Mild RASH Verified 11/17/24 14:52 levetiracetam [From Keppra] Allergy Chest Pain Verified 11/17/24 14:52 From [facility] Allergy Unknown SEIZURES Uncoded 11/17/24 14:52 onion Allergy Unknown f Uncoded 11/17/24 14:52 Review of Systems Review of Systems: Yes all other systems are reviewed and are negative [facility] Past Medical History Medical History Seizures Abnormal uterine bleeding Family planning state Otalgia of right ear Loebf-xph-bkods fetus, third trimester Encounter for suspected problem with growth, ruled out Encounter for supervision of normal in third trimester Rh negative state in antepartum period Depression affecting Fatigue during Encounter for supervision of normal in second trimester Cerumen debris on tympanic membrane of both ears Supervision of normal first Positive urine test COVID-19 Anxiety Tourettes syndrome Anemia Surgical History No pertinent past surgical history Family History Family History Father No problems noted. Mother No problems noted. Maternal Grandmother Diabetes mellitus Maternal Grandfather Diabetes mellitus Paternal Grandmother Diabetes mellitus Paternal Grandfather No problems noted. Social History Social History Household Members: Family Housing: House Are you a primary hospice patient care secretary to a significant other at home: No Do you presently have visiting nurse or other home services: No Alcohol intake: unknown Patient Tobacco Use Status: Never used Tobacco Smoked in Last 30 Days: No e-Cigarette/Vaping Use: Never Used Use of substances other than those prescribed or required for medical reasons: No Agree to transfusion: Yes Advance Directives: No Advance Directives Information Provided: No Do you have a plan to hurt others: No Plan service: No Current occupational status: employed Current occupation: [employer]- Cognitive needs: No Hearing needs: No Vision needs: No Physical Exam ED Vital Signs: Vital Signs - 24 hr 11/17/24 14:48 11/17/24 14:55 Temperature 99.8 F 99.8 F Pulse Rate 98 98 Respiratory Rate 20 20 Blood Pressure 127/79 127/79 Pulse Oximetry 98 98 Oxygen Delivery Method Room Air Room Air BMI result Body Mass Index 28.7 Const Other: The patient has been brought to the emergency department on a stretcher. She has been placed on a backboard and a C-collar has been applied as well. She was awake and alert and did not seem in acute distress. HENMT Other: Face is symmetrical. Mucous membranes moist. No raccoon eyes. No ho sign. No sign of trauma. Eyes Other: Pupils are round equal, conjunctivae are clear, extraocular movements intact Neck Other: No posterior midline C-spine tenderness. Moving her neck easily without pain. C-spine is clinically clear. Resp Effort & Inspection: normal respiratory effort Auscultation: clear to auscultation bilaterally Cardio Rate: regular rate Rhythm: regular rhythm Heart sounds: S1 normal heart sound present and S2 normal heart sound present GI Other: Abdomen is soft and nontender Back/Spine/Pelvis Other: No injury to the back. Skin Other: Skin is intact Neuro Other: The patient is awake and alert with a normal mental status. GCS 15. Pupils are round equal, conjunctivae are clear, extraocular movements intact. Face is symmetrical. Tongue is midline. Speech is clear. The patient moves all extremities normally and appropriately. Coordination is normal. Medical Decision Making Medical Decision Making MDM Narrative: The patient is a 29-year-old female who reports a history of events of seizure-like activity going back at least 3 years. She says that sometimes she has periods of time during which she has a lot of episodes and sometimes she can go a long period of time without any episodes. She is not on any antiepileptics. The patient was in the emergency room several hours ago early this morning when she had an episode of seizure-like activity while in the emergency room because her boyfriend has been resuscitated from a cardiac arrest and was on a ventilator.. The patient was discharged from the emergency room at that time after negative head CT. The patient had another episode of seizure activity today when she went to the ICU again to see her boyfriend who was still on the ventilator.. The patient had a seizure in the ICU. A rapid response was called. She was transferred here on a board and collar. Her mental status was normal. She was not exhibiting any postictal characteristics. She does not think she hit her head on this occasion. Her C-spine is clinically clear. Labs are unremarkable. My impression is that the patient likely has psychogenic nonepileptic seizures rather than epileptic seizures. She was reassured. She looks well enough for discharge. She will be referred to her regular doctor. She says she has never seen a neurologist about these episodes. I think it might be reasonable for her to see a neurologist as part of this syndrome. Lab Data 11/17/24 15:01 11/17/24 15:01 Labs: Lab Results 11/17/24 11/17/24 Range/Units 14:53 15:01 WBC 7.9 (4.8-10.8) X10*3/uL RBC 4.03 L (4.20-5.50) X10*6/uL Hgb 11.4 L (12.0-16.0) g/dl Hct 34.7 L (37.0-47.0) % MCV 86.1 (80.0-98.0) fL MCH 28.3 (27.0-33.0) pg MCHC 32.9 (31.0-35.0) g/dl RDW 13.2 (11.0-16.0) % Plt Count 273 (160-400) X10*3/uL MPV 10.5 (9.4-12.3) fL Immature Gran % (Auto) 0.4 (0.0-0.4) % Neut % (Auto) 58.4 (45-73) % Lymph % (Auto) 30.0 (20-40) % [place] % (Auto) 6.7 (2-11) % Eos % (Auto) 3.6 (0-4) % Baso % (Auto) 0.9 (0-2) % Lymph # (Auto) 2.4 (1.2-4.9) X10*3/uL [place] # (Auto) 0.5 (0.1-1.2) X10*3/uL Eos # (Auto) 0.3 (0.0-0.4) X10*3/uL Baso # (Auto) 0.1 (0.0-0.2) X10*3/uL Abs Immat Gran (auto) 0.03 (0.00-0.03) X10*3/uL Absolute Neuts (auto) 4.6 (2.0-8.3) x10*3/uL Absolute Nucleated RBC 0.000 (0.0-0.012) X10*3/uL Nucleated RBC % (auto) 0.0 (0.0-0.2) /100WBC Sodium 141 (135-145) mmol/L Potassium 3.6 (3.3-5.1) mmol/L Chloride 109 H (96-108) mmol/L Carbon Dioxide 24 (22-29) mmol/L Anion Gap 12 (12-20) BUN 9 (9-16) mg/dL Creatinine 0.67 (0.5-1.4) mg/dL Estim Creat Clear Calc 116.5 Estimated GFR > 60 POC Glucose 131 H (60-115) mg/dL Random Glucose 114 (60-115) mg/dL Lactic Acid 1.4 (0.5-2.0) mmol/L Calcium 8.9 D (8.4-10.2) mg/dL Total Bilirubin 0.4 (0.0-1.0) mg/dL Direct Bilirubin 0.1 (0.0-0.5) mg/dL AST 19 (5-31) U/L ALT 11 (0-31) U/L Total Protein 6.8 (6.5-8.0) g/dL Albumin 4.0 (3.5-5.0) g/dL Independent Interpretation I performed an independent interpretation of an: EKG Interpretation: EKG at 15 20 shows normal sinus rhythm at 92 beats per minute. It is a normal EKG. Intervals are unremarkable. Discharge Plan Discharge Clinical Impression: Seizure-like activity Patient Disposition: Home, Self-Care Additional Instructions: Please try to rest and take it easy. Continue your regular medications. As much as you are able to please try to avoid any situations that might trigger another stressful event. Please follow up soon with your regular doctor to discuss these episodes further. It might be good to see a neurologist. You may talk to your regular doctor about a possible referral. Return to the emergency room if significantly worse. Prescriptions: No Action lorazepam [Ativan] 1 mg tablet 1 mg PO TID PRN (Reason: anxiety) Qty: 10 0RF Rx Instructions: Patient may request partial fill citalopram 10 mg tablet 15 mg PO DAILY 90 Days Qty: 135 3RF Rx Instructions: 15 mg PO daily; Referrals: Esa Dorado PA-C [Primary Care Provider] - (Seizure-like activity, suspect psychogenic nonepileptic seizures) Print Language: Algerian
--- NOTE | 2024-11-17 14:54 | ECG_ITS ---
Test Reason : SEIZURE Blood Pressure : / mmHG Vent. Rate : 092 BPM Atrial Rate : 092 BPM P-R Int : 132 ms QRS Dur : 086 ms QT Int : 368 ms P-R-T Axes : 045 073 013 degrees QTc Int : 455 ms Normal sinus rhythm Normal ECG When compared with ECG of 17-NOV-2024 07:03, Nonspecific T wave abnormality no longer evident in Anterior leads Referred By: Andrew Turpin Electronically Signed By:MICHAELA ANDREWS MD
[2024-11-17 14:55] VITALS: BP 127/79; PULSE 98; RESP 20; TEMP 37.7; O2SAT 98
[2024-11-17 15:00] LABS: Glucose, Whole Blood 131 mg/dL (60-115)
--- NOTE | 2024-11-17 15:05 | PC.NURSE ---
Pt. is on personnel monitor at this time
[2024-11-17 15:12] LABS: MANUAL DIFF FLAG NO
[2024-11-17 15:13] LABS: Basophils Absolute Auto 0.1 X10*3/uL (0.0-0.2); Basophils Percent Auto 0.9 % (0-2); Eosinophils Absolute Auto 0.3 X10*3/uL (0.0-0.4); Eosinophils Percent Auto 3.6 % (0-4); Hematocrit 34.7 % (37.0-47.0); Hemoglobin 11.4 g/dl (12.0-16.0); Imm Gran Abs Auto 0.03 X10*3/uL (0.00-0.03); Imm Gran Pct Auto 0.4 % (0.0-0.4); Lymphocytes Absolute Auto 2.4 X10*3/uL (1.2-4.9); Mean Corpuscular HGB Conc 32.9 g/dl (31.0-35.0); Mean Corpuscular Hemoglobin 28.3 pg (27.0-33.0); Mean Corpuscular Volume 86.1 fL (80.0-98.0); Mean Platelet Volume 10.5 fL (9.4-12.3); Monocytes Absolute Auto 0.5 X10*3/uL (0.1-1.2); Monocytes Percent Auto 6.7 % (2-11); Neutrophils Absolute Auto 4.6 x10*3/uL (2.0-8.3); Neutrophils Percent Auto 58.4 % (45-73); Platelet Count 273 X10*3/uL (160-400); Red Blood Count 4.03 X10*6/uL (4.20-5.50); Red Cell Distribution Width 13.2 % (11.0-16.0); White Blood Count 7.9 X10*3/uL (4.8-10.8)
[2024-11-17 15:26] LABS: Lactic Acid 1.4 mmol/L (0.5-2.0)
[2024-11-17 15:33] LABS: Alanine Aminotransferase 11 U/L (0-31); Anion Gap 12 (12-20); Aspartate Amino Transferase 19 U/L (5-31); Bilirubin Direct 0.1 mg/dL (0.0-0.5); Bilirubin Total 0.4 mg/dL (0.0-1.0); Blood Urea Nitrogen 9 mg/dL (9-16); Calcium 8.9 mg/dL (8.4-10.2); Carbon Dioxide 24 mmol/L (22-29); Chloride 109 mmol/L (96-108); Creatinine Clr Calc Pharmacy 116.5; Estimated Glomerular Filt Rate > 60; Glucose Random 114 mg/dL (60-115); Potassium 3.6 mmol/L (3.3-5.1); Sodium 141 mmol/L (135-145); Total Protein 6.8 g/dL (6.5-8.0)
[2024-11-17 16:10] LABS: Alkaline Phosphatase 53 U/L (39-117)
[2024-11-17 16:33] VITALS: BP 127/79; PULSE 98; RESP 20; TEMP 37.7; O2SAT 98
== END 2024-11-17 16:33 | disposition home or self-care (01) ==
PROVIDERS: Emergency Provider Emergency Medicine; PCP Physician Assistant
DX: R56.9 Unspecified convulsions (principal); D64.9 Anemia, unspecified; E55.9 Vitamin D deficiency, unspecified; F41.9 Anxiety disorder, unspecified; F95.2 Tourette's disorder; Z79.899 Other long term (current) drug therapy
CPT/HCPCS: 36415; 80048; 80076; 82947; 83605; 85025; 93005; 99283; 99284

== ENCOUNTER 2025-02-22 11:31 | Outpatient (AMB) | payer OTHER, SELFPAY ==
[2025-02-22 11:40] VITALS: BP 122/66; PULSE 90; RESP 18; TEMP 37.1; O2SAT 98; BMI 28.7
--- NOTE | 2025-02-22 11:40 | A.OFFPC_ITS ---
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 Required: No Accompanied by: Self / Same As Patient Allergies Anesthetics - Amide Type - Select A Allergy (Severe, Verified 02/22/25 12:03) Seizure latex [LATEX] Allergy (Mild, Verified 02/22/25 12:03) RASH levetiracetam [From Keppra] Allergy (Verified 02/22/25 12:03) Chest Pain From [facility] Allergy (Unknown, Uncoded 02/22/25 12:03) SEIZURES onion Allergy (Unknown, Uncoded 02/22/25 12:03) f Medication List - Last Reconciled 02/22/25 by TRUPTI Castillo citalopram 15 mg (1.5 x 10 mg) PO DAILY 90 days Tobacco use date assessed: 02/22/25 Dental Screening Dental Screen Date: 02/22/25 Did you have a dental visit in the last 12 months?: Yes Did you have a dental problem in the last 6 months where you did not have access to dental care?: No Was dental information given to patient?: Patient has dentist HPI Fatigue HPI Details The patient is a 29-year-old female presenting with complaints of fatigue, recurrent seizures, insomnia Reports that she has been having seizures that started during labor about 2.5 years ago at [facility]. Reports the seizures stopped for a while and restarted this year Reports she had about 20 seizures this year Reports that she was not formally diagnosed and has not seen it a neurologist for this so far and was only evaluated in the hospital The patient reports that she could tell when she is about to have a seizure. She reports that she gets lightheaded, everything turns yellow and then she falls to the ground Patient reports that after having these episodes she feels a little off but she is still aware of everything around her Patient reports that she is paying a lot like every 20-30 minutes. He reports that she is drinking a normal amount of water and she has been having this problem for years but it has gotten too much. Reports that this is affecting her sleep as well. Patient denies any possibility of STDs. Urinalysis in office show +2 leukocytes we will sent to the lab. A1c done in office was 5.7%. The patient denies any other urinary symptoms. We will refer the patient to Urology Insomnia: Patient reports that she works 2nd shifts and in those night she goes to bed a little bit later. But when she is off she goes to bed around 21:00. Reports that she is constantly waking up, reports trying melatonin but it did not work so she stopped taking it We will try the patient on trazodone 50 mg at [facility] Medical History Seizures Abnormal uterine bleeding Family planning state Otalgia of right ear Arith-lbu-eanxr fetus, third trimester Encounter for suspected problem with growth, ruled out Encounter for supervision of normal in third trimester Rh negative state in antepartum period Depression affecting Fatigue during Encounter for supervision of normal in second trimester Cerumen debris on tympanic membrane of both ears Supervision of normal first Positive urine test COVID-19 Anxiety Tourettes syndrome Anemia Surgical History No pertinent past surgical history Family History Father No problems noted. Mother No problems noted. Maternal Grandmother Diabetes mellitus Maternal Grandfather Diabetes mellitus Paternal Grandmother Diabetes mellitus Paternal Grandfather No problems noted. Social History Household Members: Family Both parents involved: Yes Caregiver staying overnight: No Housing: House Are you a primary critical care registered nurse to a significant other at home: No Do you presently have visiting nurse or other home services: No 75 years or older and lives alone: No Alcohol intake: unknown Patient Tobacco Use Status: Never used Tobacco e-Cigarette/Vaping Use: Never Used Agree to transfusion: Yes service: No Current occupational status: employed Current occupation: [employer]- Cognitive needs: No Hearing needs: No Vision needs: No Female Reproductive History Menstrual Age of Menarche: 15 Date of last menstrual period: 02/02/24 control method: none Questionnaire PHQ-9 Over the last 2 weeks, how often have you been bothered by any of the following problems? 1. Little interest or pleasure in doing things: nearly every day 2. Feeling down, depressed, or hopeless: nearly every day 3. Trouble falling or staying asleep, or sleeping too much: nearly every day 4. Feeling tired or having little energy: nearly every day 5. Poor appetite or overeating: not at all 6. Feeling bad about yourself - or that you are a failure or have let yourself or your family down: several days 7. Trouble concentrating on things, such as reading the newspaper or watching television: several days 8. Moving or speaking so slowly that other people could have noticed. Or the opposite - being so fidgety or restless that you have been moving around a lot more than usual: more than half the days 9. Thoughts that you would be better off or of hurting yourself in some way: not at all Total score: 16 Depression Screening Interpretation: Positive Depression Screening Done: Yes 73075 - PHQ-9 Billing: Yes Source: Developed by Drs. Leonard Parson, Patricia Cruz, Sourav Mcguire and colleagues, with an educational cindy from [employer] [place]. Thrive Questionnaire Date Thrive assessed: 02/22/25 I am a: Patient What is your living situation today?: I have a steady place to live Within the past 12 months, did the food you bought not last and you didn't have the money to get more?: Never true Within the past 12 months, did you worry whether your food would run out before you got money to buy more?: Never true Do you have trouble paying for medicines?: No Do you have trouble getting transportation to medical appointments?: No Do you have trouble paying your heating and electricity bill?: No Do you have trouble taking care of your child, family member or friend?: No Do you have trouble with day-to-day activities such as bathing, preparing meals, shopping, managing finances, etc.?: No Are you currently unemployed and looking for a job?: No Are you interested in more education?: No Please select the resources that you would like help with: None Currently or been in a relationship where the following occur: No concerns reported THRIVE Score: 0 AUDIT C Alcohol Use Questionnaire (AUDIT-C) 1. How often do you have a drink containing alcohol?: Never 3. How often do you have six or more drinks on one occasion?: Never Total Score: 0 Score Reviewed/Action Taken: Yes KRYSTIAN-7 AMB Questionnaire KRYSTIAN-7 Date KRYSTIAN - 7 assessed: 02/22/25 Feeling nervous, anxious, or on edge: 2 = More than half the days Not being able to stop or control worryin = More than half the days Worrying too much about different things: 2 = More than half the days Trouble relaxin = Nearly every day Being so restless that it is hard to sit still: 0 = Not at all Becoming easily annoyed or irritable: 1 = Several days Feeling afraid as if something awful might happen: 1 = Several days Total KRYSTIAN-7 score (0-4 normal; 5-9 mild; 10-14 moderate; 15-21 severe): 11 Source: Developed by Drs. Leonard Parson, Patricia Cruz, Sourav Mcguire and colleagues, with an educational cindy from [employer] [place]. KRYSTIAN-7 Assessment Billing KRYSTIAN-7 Assessment Tool: KRYSTIAN-7 Assessment 25779 Review of Systems Const Reports fatigue and Denies headache(s) Eyes Denies loss of vision ENT Denies vertigo, Denies dizziness, Denies headache(s) and Denies sore throat Card Denies chest pain, Denies leg edema and Denies lightheadedness Resp Denies cough, Denies hemoptysis and Denies wheezing GI Denies abdominal pain, Denies melena, Denies constipation, Denies diarrhea and Denies vomiting Denies urinary frequency, Denies dysuria and Denies urinary urgency Neuro Denies Abnormal speech present, Denies behavioral changes, Denies vertigo, Denies dizziness, Denies headache(s), Denies loss of vision, Denies memory loss and Reports seizure-like activity (Multiple episodes-during stressful situation) Psych Reports anxiety, Denies behavioral changes, Denies depression, Denies memory loss and Denies panic attacks Endo Reports fatigue Waqas/Lymph Denies easy bleeding and Denies easy bruising Aller/Immun Denies wheezing Physical exam (Primary Care) Vital Signs: Last Vital Signs Temp 98.7 F 02/22/25 11:40 Pulse 90 02/22/25 11:40 Resp 18 02/22/25 11:40 BP 122/66 02/22/25 11:40 Pulse Ox 98 02/22/25 11:40 Oxygen Delivery Method Room Air 02/22/25 11:40 BMI result Body Mass Index 28.7 Tobacco/Smoking Status: Tobacco use Status Tobacco use date assessed 02/22/25 02/22/25 11:41 Patient Tobacco Use Status Never used Tobacco 02/22/25 11:41 e-Cigarette/Vaping Use Never Used 02/22/25 11:41 PHQ-9: PHQ-9 Score PHQ-9: Total score 16 02/22/25 12:08 Depression Screening Interpretation: Positive Thrive Assessment: Date of Thrive Assessment Date Thrive assessed 02/22/25 02/22/25 11:57 Currently or been in a relationship where the following occur: No concerns reported Const General: healthy appearing, no acute distress, alert and awake Nutritional Appearance: well nourished Orientation/consciousness: oriented to person, oriented to place and oriented to time HENMT Ears: external ears normal General nose exam: Normal external nose present Eyes Conjunctivae: conjunctivae normal Sclerae: sclerae normal Pupils: Equal, round and reactive pupils present Neck Neck: Yes no lymphadenopathy and Yes no JVD Thyroid: Thyroid normal Carotids: no bruits Resp Effort & Inspection: normal respiratory effort and not tachypneic Auscultation: no crackles, no rales, no rhonchi and no wheezes Cardio Rate: regular rate Rhythm: regular rhythm Heart sounds: no murmurs and normal S1 and S2 GI Palpation (GI): Soft to palpation, nontender, no hepatomegaly and no splenomegaly Auscultation: normal bowel sounds Skin General skin exam: no rashes or lesions noted and dry skin Neuro General: oriented to person, oriented to place, oriented to time and CN's II-XI intact bilaterally Cranial nerves: Yes Equal, round and reactive pupils present Speech: No Abnormal speech present Gait exam (Neuro): Normal gait present Motor exam (neuro): no tremor noted Extrem Right upper extremity: full ROM Left upper extremity: full ROM Right lower extremity: full ROM; no edema Left lower extremity: full ROM; no edema Psych Mental Status: mental status grossly normal Speech and movement: Normal speech and movement present Affect: normal affect Attitude: cooperative Thought process: Normal thought process present Results AMB Urinalysis, Automated UA Leukoctes 125 Mikki/uL Last Edit by Alexa Aguilera, LAURENT on 02/22/25 12:06 UA Nitrite Negative Last Edit by Alexa Aguilera, LAURENT on 02/22/25 12:06 UA Urobilinogen 0.2 mg/dL Last Edit by Alexa Aguilera, COMPUTER INFORMATION SYSTEMS INSTRUCTOR on 02/22/25 12:06 UA Protein 0 mg/dL Last Edit by Alexa Aguilera, COMPUTER INFORMATION SYSTEMS INSTRUCTOR on 02/22/25 12:06 UA pH 7.5 Last Edit by Alexa Aguilera, COMPUTER INFORMATION SYSTEMS INSTRUCTOR on 02/22/25 12:06 UA Blood 0 Reagan/uL Last Edit by Alexa Aguilera, COMPUTER INFORMATION SYSTEMS INSTRUCTOR on 02/22/25 12:06 UA Specific [place] 1.015 Last Edit by Alexa Aguilera, LAURENT on 02/22/25 12:06 UA Ketone Negative Last Edit by Alexa Aguilera, LAURENT on 02/22/25 12:06 UA Bilirubin 0 mg/dL Last Edit by Alexa Aguilera, LAURENT on 02/22/25 12:06 UA Glucose 0 mg/dL Last Edit by Alexa Aguilera, LAURENT on 02/22/25 12:06 AMB Hemoglobin A1c AMB Hemoglobin A1c 5.7 % Last Edit by LAISHA Soares on 02/22/25 12:2 3 Results Reviewed Results Reviewed: Laboratory Last Values Urine pH (Auto) 7.5 02/22/25 11:59 Specific [place] (Auto) 1.015 02/22/25 11:59 Urine Protein (Auto) 0 mg/dL 02/22/25 11:59 Glucose (UA)(Auto) 0 mg/dL 02/22/25 11:59 Urine Ketones (Auto) Negative 02/22/25 11:59 Urine Blood (Auto) 0 Reagan/uL 02/22/25 11:59 Urine Nitrite (Auto) Negative 02/22/25 11:59 Urine Bilirubin (Auto) 0 mg/dL 02/22/25 11:59 Urine Urobilinogen (Auto) 0.2 mg/dL 02/22/25 11:59 Leukocyte Esterase (Auto) 125 Mikki/uL 02/22/25 11:59 Coding Level of Care Code Est Pt Level 4 (80359) Diagnoses Seizures R56.9 Fatigue, unspecified type R53.83 Fatigue type: unspecified Insomnia, unspecified type G47.00 Insomnia type: unspecified Urinary frequency R35.0 Additional Codes KRYSTIAN-7 Assessment Billing - KRYSTIAN-7 Assessment Tool: KRYSTIAN-7 Assessment 56537 ([id number]) PHQ-9 - 41029 - PHQ-9 Billing: Yes ([id number]) Time Spent (min) 39 Assessment & Plan Assessment & Plan (1) Seizures: Code(s): R56.9 - Unspecified convulsions Category: Medical Plan: Patient reports seizures starting about 2-1/2 of the areas ago after giving . Reports that she has not been seen by Neurology and has only been evaluated in the hospital after episodes. Per [facility] ER note. Noted nonepileptic seizures and that the patient was at one time prescribed Keppra (this medication is in the patient allergy list for chest pain). Patient reports that these episodes happened during stressful situations. We will refer the patient to Neurology for further evaluation. (2) Fatigue: Code(s): R53.83 - Other fatigue Category: Medical Qualifiers: Fatigue type: unspecified Qualified Code(s): R53.83 - Other fatigue Plan: The patient is anemic and she is having trouble sleeping, both might be playing a role. We will order some blood work to evaluate the patient anemia closer. (3) Insomnia: Code(s): G47.00 - Insomnia, unspecified Category: Medical Qualifiers: Insomnia type: unspecified Qualified Code(s): G47.00 - Insomnia, unspe cified Plan: Reports having trouble sleeping constantly. Reports trying melatonin without any effects. We will try the patient on trazodone 50 mg at bedtime p.r.n. (4) Urinary frequency: Code(s): R35.0 - Frequency of micturition Category: Medical Plan: Patient complain of urinary frequency, reports that after drinking she has to urinate in 20-30 minutes. Urinalysis with small amount of leukocytes in office, we will send out to the lab. A1c 5.7% in office. Declined STD testing. We will refer the patient to Urology for further evaluation because the patient reports that this has been going on for few years now. Orders: Orders AMB Urinalysis Automated Today R35.0 - Frequency of micturition UA CC w/rflx Micro + Cult Today R35.0 - Frequency of micturition AMB Hemoglobin A1c Today Z13.9 - Encounter for screening, unspecified Comprehensive Met. Panel Today D50.8 - Other iron deficiency anemias, F41.9 - Anxiety disorder, unspecified, R53.83 - Other fatigue, R56.9 - Unspecified convulsions Vitamin B12 and Folate Today D50.8 - Other iron deficiency anemias, F41.9 - Anxiety disorder, unspecified, R53.83 - Other fatigue, R56.9 - Unspecified convulsions TSH reflex Free T4 Today D50.8 - Other iron deficiency anemias, F41.9 - Anxiety disorder, unspecified, R53.83 - Other fatigue, R56.9 - Unspecified convulsions IRON PROFILE Today D50.8 - Other iron deficiency anemias, F41.9 - Anxiety disorder, unspecified, R53.83 - Other fatigue, R56.9 - Unspecified convulsions Complete Blood Count Auto Diff Today D50.8 - Other iron deficiency anemias, F41.9 - Anxiety disorder, unspecified, R53.83 - Other fatigue, R56.9 - Unspecified convulsions Vitamin D 25-OH Total Today D50.8 - Other iron deficiency anemias, F41.9 - Anxiety disorder, unspecified, R53.83 - Other fatigue, R56.9 - Unspecified convulsions Referrals Neurology Referral R56.9 - Unspecified convulsions Urology Referral R35.0 - Frequency of micturition Medications: New trazodone 50 mg PO BEDTIME PRN 30 tabs 3RF sleep G47.00 - Insomnia, unspecified
--- OUTSIDE RECORDS SUMMARY | 2025-02-22 14:06 | XMS_ITS | Encounter Summary ---
Author Organization [facility] Address [address] [place] [id number] Phone Care Team Providers Care Financial Services Sales Representative Name Role Phone Luisa Hale MD Primary Care Provider Unava ilable Encounter Details Date Type Department Care Team (Late st Contact Info) Description 09/17/2010 Documentation [facility] Family Medicine [address] [place] [address] Family Medicine, Physician [address] [place], [place] [id number] Social History Tobacco Use Types Packs/Day Years Used Date Smoking Tobacco: Never Assessed Comments Unknown Sex and Gender Information Value Date Recorded Sex Assigned at Not on file Legal Sex Female 5:11 PM EDT Gender Identity Not on file Sexual Orientation Not on file documented as of this encounter Plan of Treatment Not on file documented as of this encounter Visit Diagnoses Not on filedocumented in this encounter Care Teams Financial Services Sales Representative Relationship Specialty Start Date End Date Luisa Hale MD PCP - General 06/27/17 documented as of this encounter
--- OUTSIDE RECORDS SUMMARY | 2025-02-22 14:06 | XMS_ITS | Encounter Summary ---
Author Organization [facility] Address [address] [place] [address] Phone Care Team Providers Care Financial Auditor Name Role Phone Luisa Hale MD Primary Care Provider Unava ilable Encounter Details Date Type Department Care Team (Late st Contact Info) Description 07/03/2017 Conversion Encounter [facility] - [address] [address] Social History Tobacco Use Types Packs/Day Years Used Date Smoking Tobacco: Never Comments:Never smoker Comments Unknown Sex and Gender Information Value Date Recorded Sex Assigned at Not on file Legal Sex Female 5:11 PM EDT Gender Identity Not on file Sexual Orientation Not on file documented as of this encounter Plan of Treatment Not on file documented as of this encounter Visit Diagnoses Not on filedocumented in this encounter Care Teams Financial Auditor Relationship Specialty Start Date End Date Luisa Hale MD PCP - General 06/27/17 documented as of this encounter
--- OUTSIDE RECORDS SUMMARY | 2025-02-22 14:06 | XMS_ITS | Clinical Summary ---
Author Organization [employer] Address [address] [place] [address] Care Team Providers Care Senior Private Client Advisor Name Role Phone Unavailable Primary Care Provider Unavailabl e Social History Tobacco Use Types Packs/Day Years Used Date Smoking Tobacco: Never Assessed Comments Unknown Sex and Gender Information Value Date Recorded Sex Assigned at Not on file Legal Sex Female 1:49 PM EST Gender Identity Not on file Sexual Orientation Not on file Plan of Treatment Health Maintenance Due Date Last Done Comments Depression Screening 1997 HIV Screening 1997 SDOH Screening 1997 Alcohol/Substance Use Screening 2009 Tobacco Screening 2009 Family Planning (PISQ) 2012 Hepatitis C Screening 2015 DTaP/Tdap/Td Vaccines (1 - Tdap) 2016 Hepatitis B Vaccines (1 of 3 - 19+ 3-dose series) 2016 Pap Smear 2018 COVID-19 Vaccine (1 - 2023-2 5 season) 2024 Influenza Vaccine (#1) 2024 Zoster Vaccines (1 of 2) 2047 RSV Patients and Pa tients Aged 60 years or older (1 - 1-dose 75+ series) 2072 HIB Vaccines Aged Out No longer eligi ble based on patient's age to complete this topic HPV Vaccines Aged Out No longer eligi ble based on patient's age to complete this topic Hepatitis A Vaccines Aged Out No long er eligible based on patient's age to complete this topic IPV Vaccines Aged Out No longer eligi ble based on patient's age to complete this topic Meningococcal Vaccine Aged Out No joshua delfin eligible based on patient's age to complete this topic Pneumococcal Vaccine: Pediat rics (0 to 5 Years) and At-Risk Patients (6 to 49) Years) Aged Out No longer eligible b ased on patient's age to complete this topic RSV under 20 months Aged Out No longe r eligible based on patient's age to complete this topic Rotavirus Vaccines Aged Out No longer eligible based on patient's age to complete this topic
--- OUTSIDE RECORDS SUMMARY | 2025-02-22 14:07 | XMS_ITS | Clinical Summary ---
Author Organization [facility] Address [address] [place] [address] Phone Care Team Providers Care Cartridge Maker Name Role Phone Luisa Hale MD Primary Care Provider Unava ilable Allergies Active Allergy Reactions Criticality Noted Date Comments Chlorpheniramine Hives Fruit Extracts Rash Low Latex Onion Pseudoephedrine Hives Medications citalopram 10 MG tablet TK 1 T PO QHS 1 06/08/2017 Active risperiDONE 0.5 MG tablet TK 1 T PO QD 1 06/12/2017 Active guanFACINE 1 MG tablet Take 1 mg by mouth. 3 tabs Q am - 1 tab Qhs Active Active Problems Problem Noted Date Diagnosed Date Unprotected sexual intercourse 08/27/2017 Assessment & Plan (08/27/2017 6:39 PM EDT): You had unprotected sex 5 days ago. I gave you 4 tabs of lo-ovral in the office at 6pm and 4 more tabs to take at 6 am in the morning. I also gave you Zofran 4mg tabs - you can take 1-2 tabs every 6 hrs as needed for nauseas. I stressed import of being seen here soon to get you started on contraception. Urinary tract infection with hematuria 7 Assessment & Plan (08/27/2017 6:40 PM EDT): You likely have a urinary tract infection. The U/A shows 2+ leuks and 2+blood. I ordered ciprofloxacin 500 mg tabs for you to start this evening and take 1 tab every 12 hrs for 3 days/6 doses. Constipation 11/03/2014 Overview (08/27/2017): Recurrent constipation. Takes a laxative as needed. Miralax did not help. Assessment & Plan (08/27/2017 6:37 PM EDT): You are feeling constipated today. We discussed import of drinking lots of water (good also to help treat your probable urinary tract infection.) Also take the laxitive that helps. Anxiety and depression 11/13/2009 Overview (08/27/2017): On celexa and risperidone Tourette's disorder 11/13/2009 Overview (08/27/2017): On guanfacine Resolved Problems Problem Noted Date Diagnosed Date Resolved Date Dysmenorrhea 01/27/2012 08/27/2017 Immunizations Immunization Administration Dates Next Due DTP 09/18/1998, 7,1997, 997 DTaP 5 04/23/2002 HPV, Quadrivalent 05/02/2014,04/08/2013,01/27/20 12 Hep B, ped/adol 1998,1997,1997 Hib (PRP-T) 09/18/1998, 7,1997, 997 IPV 04/23/2002 Influenza Split 08/09/2010 Influenza, injectable, trivalent 08/21/2009,10/19,10/01/2003 MMR 04/22/2001,1998 Meningococcal Conj (Menactra) MCV4P 06/01/2015 OPV 1997,1997,1997 Tdap 01/11/2009 Varicella 01/11/2009,03/21/1999 Family History Relation Name Status Comments Brother Alive Brother: Alive and well Cousin Cousin: Asthma Father Alive Father: Alive a nd well Half-Sister Alive Half sister (M) : Alive and well Mother Mother: Anxiety Other 1 Alive Close relative: Hypertension Other 2 Family history of Deafness, Family history of Diabetes mellitus, Family history of Seizure disorder, Family history of Developmental dislocation of hip Sister 1 Sister: Depress ion, ADD/ADHD, Anxiety Sister 2 Sister: Depress ion, ADD/ADHD, Anxiety Sister 3 Sister: Depress ion, ADD/ADHD, Anxiety Social History Tobacco Use Types Packs/Day Years Used Date Smoking Tobacco: Never Comments:Never smoker Comments No Sex and Gender Information Value Date Recorded Sex Assigned at Not on file Legal Sex Female 5:11 PM EDT Gender Identity Not on file Sexual Orientation Not on file Last Filed Vital Signs Vital Sign Reading Time Taken Comments Blood Pressure 139/71 08/27/2017 5:36 PM EDT Pulse 78 08/27/2017 5:36 PM EDT Temperature 37 ??C (98.6 ??F) 09/12/2017 4:30 PM EDT Respiratory Rate - - Oxygen Saturation 98% 04/20/2010 12:00 AM EDT Inhaled Oxygen Concentration - - Weight 48.1 kg (106 lb) 09/12/2017 4:30 PM EDT Height 157.5 cm (5' 2 ) 08/27/2017 5:36 PM EDT Body Mass Index 19.39 08/27/2017 5:36 PM EDT Plan of Treatment Health Maintenance Due Date Last Done Comments DTaP,Tdap,and Td Vaccines (7 - Td or Tdap) 01/11/2019 01/11/2009, 04/23/2002, 09/18/1998, Additional history exists Influenza Vaccines (#1) 2024 08/09/20, 08/21/2009, 11/16/2003, Additional history exists COVID-19 Vaccine (2023- season) 2024 Hepatitis B Vaccines Completed 1998, 1997, 1997 HIB Vaccines Completed 09/18/1998, 09/18, 1997, Additional history exists MMR Vaccines Completed 04/22/2001, 1998 IPV Vaccines Completed 04/23/2002, 09/18, 1997, Additional history exists Varicella Vaccines Completed 01/11/2009, 03/21/1999 HPV Vaccines Completed 05/02/2014, 03/18, 01/27/2012 Meningococcal Vaccine Completed 06/01/2015 Hepatitis A Vaccines Aged Out No long er eligible based on patient's age to complete this topic Men B Vaccine Aged Out No longer elig ible based on patient's age to complete this topic Pneumococcal Vaccine Aged Out No long er eligible based on patient's age to complete this topic Procedures * Due to [place] [employer] law, this organization might not be sharing sensitive test results. Procedure Name Priority Date/Time Associated Diagnosis Comments CHLAMYDIA AND GONORRHEA, AMPLIFIED Routine 08/27/2017 6:09 PM EDT Unprotected sexual intercourse from Last 3 Months or Most Recently Relevant to Health Maintenance Results * Due to [facility] law, this organization might not be sharing sensitive test results. * Chlamydia and Gonorrhoea, Amplified (08/27/2017 6:09 PM EDT) Chlamydia Trachomatis, DNA Probe NEGATIVE (NEG) [facility] Comment: No Chlamydia Trachomatis RNA detected in this patient's sample ? (REFERENCE RANGE/NORMAL VALUE: NOT DETECTED) ? Note: This test uses chicle grinder feeder- mediated amplification method to detect rRNA from C. Trachomatis URINE GC AMP PROBE NEGATIVE (NEG) [facility] Comment: No Neisseria Gonorrhoeae RNA detected in this patient's sample ? (REFERENCE RANGE/NORMAL VALUE: NOT DETECTED) ? NOTE: This test uses chicle grinder feeder-mediated amplification method to detect rRNA from N.Gonorrhoeae. A negative result does not preclude infection. In the case of a negative urine result, testing of an endocervical(female) or urethral (male) specimen is recommended if there is high clinical suspicion of infection. Due to very high sensitivity of Nucleic Acid Amplification Test, false positive results may occur. Therefore, specimen handling is extremely important. In patients in whom the disease is unlikely, additional sample for testing should be considered after an initial positive result. The performance characteristics of this test have not been evaluated in children. The Aptima Combo2 assay is not intended for the evaluation of suspected sexual abuse or for other medico-legal indications. The ordering provider should assess if the patient had consensual sex without risk of sexual abuse. Consult the [facility] if needed. Contact phone number . Therapeutic failure or success cannot be determined with the Aptima Combo2 assay since nucleic acid may persist following appropriate antimicrobial therapy. The Centers for Disease Control and Prevention (CDC) recommends confirmatory retesting using culture or a different nucleic acid amplification test when positive results occur, if indicated. Testing performed or reported by [facility], a Service of [facility], [address] [place] [address] CLIA ??[id number] Donte Weldon MD, PhD, Front End Ui Developer Urine (Urine, Clean Catch) 08/27/2017 6:09 PM EDT 08/27/2017 10:20 PM EDT us Lashay Rivas MD LAB MICROBIOLOGY - GENERAL O RDERABLES Final Result [facility] from Last 3 Months or Most Recently Relevant to Health Maintenance Insurance [facility] [employer] Care Teams Cartridge Maker Relationship Specialty Start Date End Date Luisa Hale MD PCP - General 06/27/17
== END 2025-02-22 12:34 | disposition home or self-care (01) ==
PROVIDERS: PCP Physician Assistant
DX: R56.9 Unspecified convulsions (principal); R53.83 Other fatigue; G47.00 Insomnia, unspecified; R35.0 Frequency of micturition; Z13.9 Encounter for screening, unspecified

== ENCOUNTER 2025-02-22 11:31 | Outpatient (REF) | payer OTHER, SELFPAY ==
--- OUTSIDE RECORDS SUMMARY | 2025-02-22 15:03 | XMS_ITS | Encounter Summary ---
Author Organization [facility] Address [address] [place] [id number] Phone Care Team Providers Care Sales Appointment Coordinator Name Role Phone Luisa Hale MD Primary Care Provider Unava ilable Encounter Details Date Type Department Care Team (Late st Contact Info) Description 09/17/2010 Documentation [facility] [address] [place] [address] Family Medicine, Physician [address] [place], [place] [id number] Social History Tobacco Use Types Packs/Day Years [...] on filedocumented in this encounter Care Teams Sales Appointment Coordinator Relationship Specialty Start Date End Date Luisa Hale MD PCP - General 06/27/17 documented as of this encounter
--- OUTSIDE RECORDS SUMMARY | 2025-02-22 15:03 | XMS_ITS | Clinical Summary ---
Author Organization [facility] Address [address] [place] [address] Phone Care Team Providers Care Canadian Bacon Tier Name Role Phone Luisa Hale MD Primary [...] complete this topic Procedures * Due to [place] [employer] law, this organization might not be sharing sensitive test results. Procedure Name Priority Date/Time Associated Diagnosis Comments CHLAMYDIA AND GONORRHEA, AMPLIFIED Routine 08/27/2017 6:09 PM EDT Unprotected sexual intercourse from Last 3 Months or Most Recently Relevant to Health Maintenance Results * Due to [facility] law, this organization might not be sharing sensitive test results. * Chlamydia and Gonorrhoea, Amplified (08/27/2017 6:09 PM EDT) Chlamydia Trachomatis, DNA Probe NEGATIVE (NEG) [facility] Comment: No Chlamydia Trachomatis RNA detected in this patient's sample ? (REFERENCE RANGE/NORMAL VALUE: NOT DETECTED) ? Note: This test uses film examiner- mediated amplification method to detect rRNA from C. Trachomatis URINE GC AMP PROBE NEGATIVE (NEG) [facility] Comment: No Neisseria Gonorrhoeae RNA detected in this patient's sample ? (REFERENCE RANGE/NORMAL VALUE: NOT DETECTED) ? NOTE: This test uses film examiner-mediated amplification method to detect rRNA from N.Gonorrhoeae. [...] without risk of sexual abuse. Consult the [facility] if needed. Contact [...] by [facility], a Service of [facility], [address] [place] [address] CLIA ??[id number] Donte Weldon MD, PhD, Appraiser Oil And Water Urine (Urine, Clean Catch) 08/27/2017 6:09 PM EDT 08/27/2017 10:20 PM EDT us Lashay Rivas MD LAB MICROBIOLOGY - GENERAL O RDERABLES Final Result [facility] from Last 3 Months or Most Recently Relevant to Health Maintenance Insurance [facility] [employer] Care Teams Canadian Bacon Tier Relationship Specialty Start Date End Date Luisa Hale MD PCP - General 06/27/17
--- OUTSIDE RECORDS SUMMARY | 2025-02-22 15:03 | XMS_ITS | Encounter Summary ---
Author Organization [facility] Address [address] [place] [address] Phone Care Team Providers Care Director Operations Name Role Phone Luisa Hale MD Primary Care Provider Unava ilable Encounter Details Date Type Department Care Team (Late st Contact Info) Description 07/03/2017 Conversion Encounter [facility] - [address] [address] Social History Tobacco Use Types Packs/Day Years [...] on filedocumented in this encounter Care Teams Director Operations Relationship Specialty Start Date End Date Luisa Hale MD PCP - General 06/27/17 documented as of this encounter
--- OUTSIDE RECORDS SUMMARY | 2025-02-22 15:03 | XMS_ITS | Clinical Summary ---
Author Organization [employer] Address [address] [facility] [address] [place] [address] Care Team Providers Care Patient Service Associate Name Role Phone Unavailable Primary Care Provider [...]
[2025-02-22 17:12] LABS: Appearance Urine Clear; Color Urine Yellow; Glucose Urine UA Negative (Negative); Leukocyte Esterase Urine Large (3+) (Negative); Nitrite Urine Negative (Negative); PH 8.5 (5.0-9.0); Specific Gravity - Urine 1.015 (1.005-1.025); UMIC TRIGGER UACC YES; Urine Blood Negative (Negative); Urine Ketones Negative (Negative); Urine Protein Negative (Neg-Trace)
[2025-02-22 17:26] LABS: Bacteria Urine 1+ (None Seen); Hyaline Casts Urine 0-2 /LPF (0-2); RBC Urine 0-2 /HPF (0-2); UACC Culture Trigger YES; WBC Urine 0-5 /HPF (0-5)
== END 2025-02-22 11:32 | disposition home or self-care (01) ==
LOC: HO.LAB 11:31
PROVIDERS: PCP Physician Assistant
DX: R56.9 Unspecified convulsions (principal); R53.83 Other fatigue; G47.00 Insomnia, unspecified; R35.0 Frequency of micturition
CPT/HCPCS: 81001; 81003; 83036; 87086; 96127; 99212

== ENCOUNTER 2025-04-15 11:31 | Emergency (ER) | payer OTHER, SELFPAY ==
--- NOTE | ~2025-04-15 | XR_ITS ---
EXAMINATION: XR CHEST 2 VIEWS HISTORY: Coughing URI symptoms pneumonia COMPARISON: There are no prior studies available for comparison. FINDINGS: PA and lateral views of the chest are submitted. The lungs are expanded and clear. There is no pleural effusion, pneumothorax, or pulmonary vascular congestion. The heart is normal in size. The bones are intact. XR/XR chest 2V IMPRESSION: Normal examination of the chest. Electronically signed by: Leonard De La Cruz MD 04/15/2025 12:30 PM EDT
--- NOTE | 2025-04-15 11:35 | ECG_ITS ---
Test Reason : CHEAT PAIN Blood Pressure : */* mmHG Vent. Rate : 105 BPM Atrial Rate : 105 BPM P-R Int : 136 ms QRS Dur : 86 ms QT Int : 338 ms P-R-T Axes : 53 65 -11 degrees QTcB Int : 446 ms Sinus tachycardia Possible Left atrial enlargement T wave abnormality, consider inferior ischemia Abnormal ECG When compared with ECG of 17-Nov-2024 15:20, No significant change was found Referred By: Generic ED Physician Electronically Signed By: MICHAELA ANDREWS MD
[2025-04-15 11:52] VITALS: BP 135/73; PULSE 111; RESP 20; TEMP 37.4; O2SAT 98; BMI 28.0
--- NOTE | 2025-04-15 12:09 | ED_ITS ---
HPI - General Adult General Chief complaint: Upper Respiratory Symptoms Stated complaint: chest pain, covid Symptoms Time Seen by Provider: 04/15/25 13:27 Source: patient Mode of arrival: ambulatory Limitations: no limitations History of Present Illness ED Provider: Sylvain Harmon HPI narrative: 30 yolc female with pmh of seizuers, asthma, and anemia presents to the for 4 days of cough, sore throat, headaches, loss of taste and smell, and chest pain only when she cougns. patietn states no shortness of breath, neck pain, or chest pain radiating down left arm. Related Data Previous Rx's ?Medication ?Instructions ?Recorded citalopram 10 mg tablet 15 mg (1.5 x 10 mg) PO DAILY 90 05/03/24 days #135 tabs trazodone 50 mg tablet 50 mg PO BEDTIME PRN sleep #30 tabs 02/22/25 benzonatate 200 mg capsule 200 mg PO TID PRN cough 5 days #15 04/15/25 caps Allergies Allergy/AdvReac Type Severity Reaction Status Date / Time Anesthetics - Amide Type - Allergy Severe Seizure Verified 04/15/25 11:55 Select A latex [LATEX] Allergy Mild RASH Verified 04/15/25 11:55 levetiracetam [From Keppra] Allergy Chest Pain Verified 04/15/25 11:55 From [facility] Allergy Unknown SEIZURES Uncoded 02/22/25 12:03 onion Allergy Unknown f Uncoded 02/22/25 12:03 Review of Systems Review of Systems: coughing sore throat, nasal congestion, headaches, loss of taste and smeel Yes all other systems are reviewed and are negative PMFSH Past Medical History Medical History Seizures Abnormal uterine bleeding Family planning state Otalgia of right ear [id number] fetus, third trimester Encounter for suspected problem with growth, ruled out Encounter for supervision of normal in third trimester Rh negative state in antepartum period Depression affecting Fatigue during Encounter for supervision of normal in second trimester Cerumen debris on tympanic membrane of both ears Supervision of normal first Positive urine test COVID-19 Anxiety Tourettes syndrome Anemia Surgical History No pertinent past surgical history Family History Family History Father No problems noted. Mother No problems noted. Maternal Grandmother Diabetes mellitus Maternal Grandfather Diabetes mellitus Paternal Grandmother Diabetes mellitus Paternal Grandfather No problems noted. Social History Social History Household Members: Family Housing: House Are you a primary critical care educator to a significant other at home: No Do you presently have visiting nurse or other home services: No Alcohol intake: unknown Patient Tobacco Use Status: Never used Tobacco e-Cigarette/Vaping Use: Never Used Agree to transfusion: Yes Advance Directives: No Advance Directives Information Provided: Yes Do you have a plan to hurt others: No Plan service: No Current occupational status: employed Current occupation: [employer]- Cognitive needs: No Hearing needs: No Vision needs: No Physical Exam ED Vital Signs: Vital Signs - 24 hr 04/15/25 11:52 Temperature 99.3 F Pulse Rate 111 H Respiratory Rate 20 Blood Pressure 135/73 Pulse Oximetry 98 Oxygen Delivery Method Room Air BMI result Body Mass Index 28.0 Const General: cooperative, healthy appearing, comfortable, no acute distress and well developed Orientation/consciousness: patient oriented x3 HENMT Head: Yes normal to inspection, Yes No palpable skull fracture present, Yes normocephalic and Yes atraumatic Ears: hearing grossly normal bilaterally, external ears normal, TM's normal bilaterally, TM normal on the right, TM normal on the left, EAC's normal, mastoids normal and no periauricular adenopathy General nose exam: Normal external nose present, Normal nares present and No nasal polyps present Face and sinus: Yes normal facial exam, Yes sinuses nontender and Yes face symmetric Throat: Yes posterior oropharynx normal, Yes tonsils normal and Yes uvula midline Eyes General: appearance normal, both eyes and all related structures Neck Neck: Yes normal visual inspection, Yes full ROM, Yes no lymphadenopathy, Yes no meningeal signs, Yes trachea midline, Yes supple, No anterior neck swelling and No tender Chest Chest palpation & inspection: normal inspection of the chest and normal palpation of entire chest wall Resp Effort & Inspection: normal respiratory effort and able to speak in complete sentences Auscultation: clear to auscultation bilaterally Cardio Jugular venous distension: no JVD Heart sounds: S1 normal heart sound present and S2 normal heart sound present GI Inspection: Yes normal to inspection Palpation (GI): Soft to palpation, not firm, nontender, no guarding and not rigid General: Yes no CVA tenderness Back/Spine/Pelvis Back: no CVA tenderness and No back tenderness Skin General skin exam: no rashes or lesions noted, elasticity normal and turgor normal Neuro General: patient oriented x3, gait normal, tone normal, moves all extremities, Normal light touch and pain sensation, no meningeal signs, no focal motor deficits and CN's II-XI intact bilaterally Extrem General: Yes normal to inspection, Yes full ROM and Yes capillary refill normal Psych Appearance: grossly normal, well kempt and not disheveled Course Course Course Narrative: RME: 30-year-old female presents to the ED for coughing, loss of smell, taste, sore throat, headache, and chilss. patient states duagher had similiar symptoms. EKG shows sinus tachy. CHest xray SARS and strep ordered. Medical Decision Making Medical Decision Making MDM Narrative: 30-year-old female presents to the ED with URI symptoms. Patient states sore throat, coughing, headache, body aches, chills, loss of taste, loss of smell, chest pain only when she coughs. Patient denies any leg swelling, pleurisy, coughing up blood. Patient denies any calf pain, recent long travel, or recent surgery. Patient is not on any control pills. EKG just shows sinus tach negative STEMI. T wave abnormality is old and has been present in previous EKGS. Not suspecting any cardiac injury. EKG ordered in triage before I evaluated patient. SARs COVID influenza RSV strep came back negative. Chest x-ray negative for pneumonia. Not suspecting PE, NM, pericarditis, myocarditis, CHF, or any life-threatening etiology. Patient will be given cough medication. Patient explained worrisome signs and informed to return to the ED immediately Differential Diagnosis Differential Diagnoses: The differential diagnosis associated with the presentation includes (COVID, influenza, RSV, pneumonia) Admission/Observation Consideration of admission/observation: Escalation of care including admission/observation considered Lab Data Labs: Lab Results 04/15/25 Range/Units 12:12 Influenza Type A (PCR) NEGATIVE (Negative) Influenza Type B (PCR) NEGATIVE (Negative) RSV RNA Qual (PCR) NEGATIVE (Negative) SARS-CoV-2 RNA (RT-PCR) NEGATIVE (Negative) S. pyogenes GrpA NIR Negative (Negative) Independent Interpretation I performed an independent interpretation of an: EKG (Sinus tach) and Plain X- Ray Independent Historian Clinical information obtained from an independent historian. History obtained from or confirmed by: Other (Patient) Prescription Management I considered prescription management with: Other (Coughing) Discharge Plan Discharge Clinical Impression: URI (upper respiratory infection) Qualifiers: URI type: unspecified URI Qualified Code(s): J06.9 - Acute upper respiratory infection, unspecified Patient Disposition: Home, Self-Care Instructions: Upper Respiratory Infection (ED) Additional Instructions: Your COVID influenza RSV strep came back negative. Chest x-ray came back negative pneumonia. Recommend follow-up with the primary care provider. Return to the ED immediately for any chest pain, coughing up blood, leg swelling, calf pain, chest pain inspiration, intractable fever, chills, rash, or any other concerning symptoms. Prescriptions: New benzonatate 200 mg capsule 200 mg PO TID PRN (Reason: cough) 5 Days Qty: 15 0RF No Action citalopram 10 mg tablet 15 mg PO DAILY 90 Days Qty: 135 3RF Rx Instructions: 15 mg PO daily; trazodone 50 mg tablet 50 mg PO BEDTIME PRN (Reason: sleep) Qty: 30 3RF Referrals: Esa Dorado PA-C [Primary Care Provider] - (URI symptoms) Stand Alone Forms: Work/School Release Interventions: ED Discharge Assessment Last Done: 04/15/25 13:38 Discharge Date/Time: 04/15/25 13:39 Print Language: German
[2025-04-15 12:24] LABS: IDNOW Serial# 55D5AD1C; Strep A Nucleic Acid Negative (Negative)
[2025-04-15 12:55] LABS: Influenza A PCR NEGATIVE (Negative); Influenza B PCR NEGATIVE (Negative); Resp Syncy Virus RNA Qual PCR NEGATIVE (Negative); SARS COV2 PCR INHOUSE NEGATIVE (Negative)
[2025-04-15 13:38] VITALS: BP 135/73; PULSE 111; RESP 20; TEMP 37.4; O2SAT 98
--- OUTSIDE RECORDS SUMMARY | 2025-04-15 13:39 | XMS_ITS | Encounter Summary ---
Author Organization [facility] Address [address] [place] [phone] Phone Care Team Providers Care Urologic Surgeon Name Role Phone Luisa Hale MD Primary Care Provider Unava ilable Encounter Details Date Type Department Care Team (Late st Contact Info) Description 07/03/2017 Conversion Encounter [facility] - [address] [address] Social History Tobacco Use Types Packs/Day Years [...] on filedocumented in this encounter Care Teams Urologic Surgeon Relationship Specialty Start Date End Date Luisa Hale MD PCP - General 06/27/17 documented as of this encounter
== END 2025-04-15 13:39 | disposition home or self-care (01) ==
PROVIDERS: Physician Assistant; Emergency Provider Emergency Medicine; PCP Physician Assistant
DX: J06.9 Acute upper respiratory infection, unspecified (principal); R07.9 Chest pain, unspecified; R05.9 Cough, unspecified; J02.9 Acute pharyngitis, unspecified; R51.9 Headache, unspecified
CPT/HCPCS: 0241U; 71046; 87651; 93005; 99283

== ENCOUNTER → 2025-04-15 11:35 | Outpatient (BNV) | payer OTHER, SELFPAY | PROVIDERS: Emergency Provider Emergency Medicine; PCP Physician Assistant; Visit Provider Internal Medicine Cardiovascular Disease | DX: R00.0 Tachycardia, unspecified (principal) | CPT/HCPCS: 93010 ==

== ENCOUNTER → 2025-04-15 12:07 | Outpatient (BNV) | payer OTHER, SELFPAY | PROVIDERS: PCP Physician Assistant; Visit Provider Radiology Diagnostic Radiology | DX: R05.9 Cough, unspecified (principal) | CPT/HCPCS: 71046 ==

== ENCOUNTER 2025-04-20 10:49 | Outpatient (REF) | payer OTHER, SELFPAY | END 2025-04-20 10:50 | disposition home or self-care (01) | LOC: HO.LAB 10:49 | PROVIDERS: PCP Physician Assistant; Visit Provider Nurse Practitioner Family | DX: R35.0 Frequency of micturition (principal); N39.0 Urinary tract infection, site not specified; R35.1 Nocturia; R39.9 Unspecified symptoms and signs involving the genitourinary system | CPT/HCPCS: 51798; 81003; 99202 ==

== ENCOUNTER 2025-04-20 10:49 | Outpatient (AMB) | payer OTHER, SELFPAY ==
--- NOTE | 2025-04-20 10:52 | A.OFFVIS_ITS ---
Intake Visit Reasons: urinary frequency Intake Note: Pt presents to the office today for Urinary retention. Urology meds:None Blood thinners:None PVR:35ml Allergies Anesthetics - Amide Type - Select A Allergy (Severe, Verified 04/20/25 11:32) Seizure latex [LATEX] Allergy (Mild, Verified 04/20/25 11:32) RASH levetiracetam [From Keppra] Allergy (Verified 04/20/25 11:32) Chest Pain [facility] Allergy (Unknown, Uncoded 04/20/25 11:32) SEIZURES onion Allergy (Unknown, Uncoded 04/20/25 11:32) f Medication List - Last Reconciled 04/20/25 by JAKUB Sandoval citalopram 15 mg (1.5 x 10 mg) PO DAILY 90 days HPI Comments Details: Garry is a pleasant 30-year-old female patient of Dr. Dorado. She has a past medical history of anxiety, anemia, and Tourette's syndrome. She presents to the office today as a new patient for urinary urgency, urinary frequency, and nocturia. In discussion with the patient today she reports for many years she has been experiencing ongoing lower urinary tract symptoms however feels now that she is working it is affecting her activities of daily life. She reports nocturia up to 5 times per night. In office urinalysis results reviewed with the patient today 2+ leukocytes otherwise within normal limits. We did discussed potential causes of these lower urinary tract symptoms she is exper iencing as well as further treatment options and risks and benefits of these treatment options. PVR 35 mL. We discussed obtaining retroperitoneal ultrasound for further assessment evaluation. We also discussed obtaining bladder diary for further assessment evaluation. We discussed bladder triggers/irritants. She denies hematuria, dysuria, foul smelling urine, changes to urinary stream, flank pain, fever, and or chills. History of Present Illness The patient is a 30-year-old female presenting with urinary frequency that has worsened over recent years. She reports needing to urinate every 15 to 20 minutes during the day and wakes up up to five night for urination. This increased frequency affects her daily life, particularly at work, as she needs to visit the restroom frequently. She experiences urgency and difficulty holding urine when the urge arises, which sometimes leads to soreness in the bladder upon delay. Her symptoms have persisted for years but are currently more severe. A bladder scan determined she is adequately emptying her bladder, as no significant urine volume remained post-voiding. She is also managing anxiety with therapy and medication and suspects that this may exacerbate her urinary issues. Chocolate consumption is another factor she considers might be contributing. Treatment or restriction regarding specific food groups to alleviate symptoms has been discussed. Patient was informed and verbally consented to the use of an ambient scribe for clinic note documentation during this visit. Discussion Notes I discussed with the patient the potential diagnosis of overactive bladder and its relation to urinary frequency. We reviewed the results of her urinalysis and bladder scan. The relationship between dietary habits and urinary symptoms was considered, with the suggestion to reduce intake of chocolate among other irritants. The patient understood this may mitigate symptoms, and a bladder diary will track her urinary patterns. I explained the possibility of future diagnostic imaging if needed. We reviewed the natural route first, with pharmacological interventions as a later step if symptoms persist. She consented to this plan, agreeing to monitor changes. [facility] Medical History Seizures Abnormal uterine bleeding Family planning state Otalgia of right ear [id number] fetus, third trimester Encounter for suspected problem with growth, ruled out Encounter for supervision of normal in third trimester Rh negative state in antepartum period Depression affecting Fatigue during Encounter for supervision of normal in second trimester Cerumen debris on tympanic membrane of both ears Supervision of normal first Positive urine test COVID-19 Anxiety Tourettes syndrome Anemia Surgical History No pertinent past surgical history Family History Father No problems noted. Mother No problems noted. Maternal Grandmother Diabetes mellitus Maternal Grandfather Diabetes mellitus Paternal Grandmother Diabetes mellitus Paternal Grandfather No problems noted. Social History Household Members: Family Both parents involved: Yes Caregiver staying overnight: No Housing: House Are you a primary neonatal critical care nurse to a significant other at home: No Do you presently have visiting nurse or other home services: No 75 years or older and lives alone: No Alcohol intake: unknown Patient Tobacco Use Status: Never used Tobacco e-Cigarette/Vaping Use: Never Used Agree to transfusion: Yes service: No Current occupational status: employed Current occupation: [employer]- Cognitive needs: No Hearing needs: No Vision needs: No Female Reproductive History Menstrual Age of Menarche: 15 Review of Systems Const All systems reviewed & are unremarkable except as noted in HPI and below Physical Exam Const General: cooperative, healthy appearing, comfortable, no acute distress, well developed, alert and awake Orientation/consciousness: patient oriented x3 Limitations: no limitations HEENT Head: Yes normal to inspection, Yes normocephalic and Yes atraumatic Ears: hearing grossly normal bilaterally Eyes General: appearance normal, both eyes and all related structures Neck Neck: Yes normal visual inspection and Yes trachea midline Chest Chest palpation & inspection: normal inspection of the chest Resp Effort & Inspection: normal respiratory effort and able to speak in complete sentences Cardio Rate: regular rate GI Inspection: Yes normal to inspection General: Yes no CVA tenderness Back/Spine/Pelvis Back: no CVA tenderness Skin General skin exam: no rashes or lesions noted Neuro General: patient oriented x3 Extrem General: Yes normal to inspection Psych Appearance: grossly normal and well kempt Mental Status: mental status grossly normal Speech and movement: Normal speech and movement present and Clear speech present Affect: normal affect Attitude: cooperative Thought process: Normal thought process present Thought content: Normal thought content present Insight: Fair insight present (Psych) Judgement: Fair judgement present (Psych) Office Procedures Post Void Residual Post Residual Void Post Void Residual (PVR): 35 36820-Evub Void Residual by ultrasound Results AMB Urinalysis, Automated UA Leukoctes 125 Mikki/uL Last Edit by Taryn Rodriguez CMA on 04/20/25 11:01 UA Nitrite Negative Last Edit by Taryn Rodriguez CMA on 04/20/25 11:01 UA Urobilinogen 0.2 mg/dL Last Edit by Taryn Rodriguez CMA on 04/20/25 11:01 UA Protein 15 mg/dL Last Edit by Taryn Rodriguez CMA on 04/20/25 11:01 UA pH 6.0 Last Edit by Taryn Rodriguez CMA on 04/20/25 11:01 UA Blood 0 Reagan/uL Last Edit by Taryn Rodriguez CMA on 04/20/25 11:01 UA Specific [place] 1.020 Last Edit by Taryn Rodriguez CMA on 04/20/25 11:01 UA Ketone Negative Last Edit by Taryn Rodriguez CMA on 04/20/25 11:01 UA Bilirubin 0 mg/dL Last Edit by Taryn Rodriguez CMA on 04/20/25 11:01 UA Glucose 0 mg/dL Last Edit by Taryn Rodriguez CMA on 04/20/25 11:01 Results Reviewed Results Reviewed: Laboratory Last Values Urine pH (Auto) 6.0 04/20/25 10:55 Specific [place] (Auto) 1.020 04/20/25 10:55 Urine Protein (Auto) 15 mg/dL 04/20/25 10:55 Glucose (UA)(Auto) 0 mg/dL 04/20/25 10:55 Urine Ketones (Auto) Negative 04/20/25 10:55 Urine Blood (Auto) 0 Reagan/uL 04/20/25 10:55 Urine Nitrite (Auto) Negative 04/20/25 10:55 Urine Bilirubin (Auto) 0 mg/dL 04/20/25 10:55 Urine Urobilinogen (Auto) 0.2 mg/dL 04/20/25 10:55 Leukocyte Esterase (Auto) 125 Mikki/uL 04/20/25 10:55 Assessment & Plan Assessment & Plan (1) Lower urinary tract symptoms: Code(s): R39.9 - Unspecified symptoms and signs involving the genitourinary system Category: Medical (2) Urinary frequency: Code(s): R35.0 - Frequency of micturition Category: Medical (3) Urinary urgency: Code(s): R39.15 - Urgency of urination Category: Medical (4) Nocturia: Code(s): R35.1 - Nocturia Category: Medical Plan In office urinalysis results with the patient today; as noted above; will send for urine culture. PVR 35 mL. We discussed bladder triggers/irritants. Information provided regarding bladder diary. Will obtain retroperitoneal ultrasound for further assessment evaluation. We discussed healthy bathroom behaviors. Follow-up in 1-3 months with imaging and PVR; or sooner with any issues, concerns, and or questions. Orders: Orders AMB Urinalysis Automated Today R35.0 - Frequency of micturition AMB Post Void Residual by ultrasound Today R35.0 - Frequency of micturition US retroperitoneal comp Today R35.0 - Frequency of micturition, R35.1 - Nocturia, R39.15 - Urgency of urination, R39.9 - Unspecified symptoms and signs involving the genitourinary system Patient Instructions: The patient had an opportunity to ask questions regarding the treatment plan. All questions were answered. Physical exam, labs, and imaging were discussed and reviewed in detail. As well as risks, benefits, and discussion of treatment choices. No major barriers to understanding were identified. The patient expressed understanding and agreement with the above treatment plan. The patient was made aware they should contact our office by phone for worsening of their current condition, the appearance of new symptoms, or with any questions or concerns. Compliance is encouraged with any medications and follow up testing that is ordered. It is a privilege to be allowed the opportunity to participate in? your urological care.? Again, if you have any questions or concerns If you have any questions or concerns please do not hesitate to contact me. The office is [phone]. This note is constructed using voice recognition software. While every effort has been made to ensure accuracy type rolling machine operator errors may have been included. Yours sincerely, JAKUB Sandoval Coding Level of Care Code New Pt Level 3 (22033) Diagnoses Lower urinary tract symptoms R39.9 Urinary frequency R35.0 Urinary urgency R39.15 Nocturia R35.1 CPT Codes Post Residual Void - PVR CPT Code: 39911-Udlu Void Residual by ultrasound ([id number])
--- OUTSIDE RECORDS SUMMARY | 2025-04-20 11:43 | XMS_ITS | Encounter Summary ---
Author Organization [facility] Address [address] [place] [id number] Phone Care Team Providers Care Float Phlebotomist Name Role Phone Luisa Hale MD Primary Care Provider Unava ilable Encounter Details Date Type Department Care Team (Late st Contact Info) Description 07/03/2017 Conversion Encounter [facility] - [address] [address] Social History Tobacco Use Types Packs/Day Years [...] on filedocumented in this encounter Care Teams Float Phlebotomist Relationship Specialty Start Date End Date Luisa Hale MD PCP - General 06/27/17 documented as of this encounter
== END 2025-04-20 11:35 | disposition home or self-care (01) ==
LOC: HO.HUSH 10:50
PROVIDERS: PCP Physician Assistant; Visit Provider Nurse Practitioner Family
DX: R39.9 Unspecified symptoms and signs involving the genitourinary system (principal); R35.0 Frequency of micturition; R39.15 Urgency of urination; R35.1 Nocturia
CPT/HCPCS: 99203

== ENCOUNTER 2025-05-01 22:46 | Emergency (ER) | payer OTHER, SELFPAY ==
[2025-05-01 22:55] VITALS: BP 114/68; PULSE 108; RESP 18; TEMP 37.7; O2SAT 99; BMI 27.7
[2025-05-02 00:45] LABS: Influenza A PCR NEGATIVE (Negative); Influenza B PCR NEGATIVE (Negative); Resp Syncy Virus RNA Qual PCR NEGATIVE (Negative); SARS COV2 PCR INHOUSE NEGATIVE (Negative)
--- NOTE | 2025-05-02 01:59 | ED_ITS ---
HPI - General Adult General Chief complaint: Dental/Oral Stated complaint: right top wisdom tooth infection Time Seen by Provider: 05/02/25 01:40 Source: patient Limitations: no limitations History of Present Illness ED Provider: Luisa Roman PA-C HPI narrative: 30 year old female with a history of seizure disorder, Tourette syndrome, presents with multiple complaints. Patient states she has had a dry cough with nasal congestion x1 month. She is also developed concurrent right lower wisdom tooth pain; patient saw her dentist, the wisdom tooth in question is erupting and is impacted. Patient states over the past week, she has developed bilateral ear pain, right greater than left. Associated chills and sore throat. Denies known fever. Patient states seasonal allergies affect her. Related Data Previous Rx's ?Medication ?Instructions ?Recorded citalopram 10 mg tablet 15 mg (1.5 x 10 mg) PO DAILY 90 05/03/24 days #135 tabs amoxicillin 875 mg-potassium 1 tab PO Q12H #19 tabs 05/02/25 clavulanate 125 mg tablet ketorolac 10 mg tablet 10 mg PO Q6H PRN pain #20 tabs 05/02/25 Allergies Allergy/AdvReac Type Severity Reaction Status Date / Time Anesthetics - Amide Type - Allergy Severe Seizure Verified 05/01/25 23:02 Select A latex [LATEX] Allergy Mild RASH Verified 05/01/25 23:02 levetiracetam [From Keppra] Allergy Chest Pain Verified 05/01/25 23:02 From [facility] Allergy Unknown SEIZURES Uncoded 05/01/25 23:02 onion Allergy Unknown f Uncoded 05/01/25 23:02 Review of Systems Review of Systems: Yes all other systems are reviewed and are negative Constitutional: Constitutional: Reports chills, Denies fatigue, Denies fever(s) and Reports malaise ENT: Reports dental pain, Reports otalgia, Reports mouth pain, Reports nasal congestion and Reports sore throat Cardiovascular: Cardiovascular: Denies chest pain and Denies dyspnea Respiratory: Respiratory: Denies chest congestion, Reports cough and Denies dyspnea Gastrointestinal: Gastrointestinal: Denies abdominal pain, Denies nausea and Denies vomiting Endocrine: Endocrine: Denies fatigue PMFSH Past Medical History Attestation statement: The following information was validated with the patient. Medical History Seizures Abnormal uterine bleeding Family planning state Otalgia of right ear Oklaj-fmf-nqpiv fetus, third trimester Encounter for suspected problem with growth, ruled out Encounter for supervision of normal in third trimester Rh negative state in antepartum period Depression affecting Fatigue during Encounter for supervision of normal in second trimester Cerumen debris on tympanic membrane of both ears Supervision of normal first Positive urine test COVID-19 Anxiety Tourettes syndrome Anemia Surgical History No pertinent past surgical history Family History Family History Father No problems noted. Mother No problems noted. Maternal Grandmother Diabetes mellitus Maternal Grandfather Diabetes mellitus Paternal Grandmother Diabetes mellitus Paternal Grandfather No problems noted. Social History Social History Household Members: Family Housing: House Are you a primary workforce investment act career manager to a significant other at home: No Do you presently have visiting nurse or other home services: No Alcohol intake: unknown Patient Tobacco Use Status: Never used Tobacco Smoked in Last 30 Days: No e-Cigarette/Vaping Use: Never Used Use of substances other than those prescribed or required for medical reasons: No Agree to transfusion: Yes Advance Directives: No Advance Directives Information Provided: No Patient : No service: No Current occupational status: employed 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 Left TM is more translucent, I can still detect fluid, no tragal tenderness no discomfort with the exam. The oropharynx is mildly erythematous, uvula is midline, tonsils are not prominent I do not see exudate no trismus no drooling. The tooth in question, #32 has erupted through the gingiva, erythema noted at the site Resp Effort & Inspection: normal respiratory effort Cardio Other: Normal peripheral perfusion Skin Other: Warm dry no rash Neuro General: patient oriented x3, gait normal, no focal motor deficits and CN's II- XI intact bilaterally Psych Other: Cooperative Medical Decision Making Medical Decision Making MDM Narrative: 30 year old female with a history of seizure disorder, Tourette syndrome, presents with multiple complaints. Patient states she has had a dry cough with nasal congestion x1 month. She is also developed concurrent right lower wisdom tooth pain; patient saw her dentist, the wisdom tooth in question is erupting and is impacted. Patient states over the past week, she has developed bilateral ear pain, right greater than left. Associated chills and sore throat. Denies known fever. Patient states seasonal allergies affect her. Problem: Seizure disorder, Tourette's History: Per patient I have considered the following differential diagnoses: Om, OE, serous otitis, dental infection, strep pharyngitis, viral syndrome, RPA, FIREFIGHTER TYPE ONE Plan: In regard to the ear pain, I believe the patient has serous otitis, in his likely developing otitis media of the right ear. It is on the same side as the affected tooth, we will treat for early dental abscess. It is ideal the patient is seeing her dentist tomorrow we will treat with Augmentin. Viral panel and strep screen ordered from triage everything was negative. Her exam was not consistent with RPA or FIREFIGHTER TYPE ONE. I have independently reviewed the following tests: Labs: Viral panel negative, strep screen negative Lab Data Labs: Lab Results 05/01/25 Range/Units 23:58 Influenza Type A (PCR) NEGATIVE (Negative) Influenza Type B (PCR) NEGATIVE (Negative) RSV RNA Qual (PCR) NEGATIVE (Negative) SARS-CoV-2 RNA (RT-PCR) NEGATIVE (Negative) Discharge Plan Discharge Clinical Impression: Acute serous otitis media of both ears, Acute otitis media, right, Dental infection Patient Disposition: Home, Self-Care Instructions: Dental Abscess (ED), Ear Infection (ED), Fluid In The Ear (Serous Otitis Media) (ED) Additional Instructions: The viral panel was negative, you were screened for influenza RSV and COVID. You were also screened for strep throat that was negative as well. You were found to have fluid in both inner ears, this is consistent with congestion. You can use [id number] Zyrtec indefinitely throughout the summer. This will help alleviate congestion. I am also treating you for suspect infection of the right inner ear. See home care instructions. Take the Augmentin as directed, be sure to complete the course of antibiotics. This antibiotic is also appropriate for likely dental infection related to your wisdom tooth. Be sure to keep your appointment with your dentist scheduled for tomorrow. Use the ketorolac as needed for pain, take it with food. Follow up with your primary care provider as needed. Prescriptions: New amoxicillin-pot clavulanate 875-125 mg tablet 1 tab PO Q12H Qty: 19 0RF ketorolac 10 mg tablet 10 mg PO Q6H PRN (Reason: pain) Qty: 20 0RF Rx Instructions: maximum total duration of 5 days from all oral, intranasal, or parenteral formulations. The patient received an intramuscular dose of Toradol here in the emergency room No Action citalopram 10 mg tablet 15 mg PO DAILY 90 Days Qty: 135 3RF Rx Instructions: 15 mg PO daily; Print Language: Syrian
[2025-05-02 02:03] LABS: IDNOW Serial# 55D5AD1C; Strep A Nucleic Acid Negative (Negative)
[2025-05-02] MEDS: Amoxicillin/Potassium Clav 875 MG TABLET PO (02:07)
[2025-05-02] MEDS: Ketorolac Tromethamine 15 MG/ML VIAL IM (02:08)
[2025-05-02 02:23] VITALS: BP 114/68; PULSE 108; RESP 18; TEMP 37.7; O2SAT 99
== END 2025-05-02 02:25 | disposition home or self-care (01) ==
PROVIDERS: Physician Assistant Medical; Emergency Provider Emergency Medicine; PCP Physician Assistant
DX: H65.03 Acute serous otitis media, bilateral (principal); H66.91 Otitis media, unspecified, right ear; K04.7 Periapical abscess without sinus; K08.89 Other specified disorders of teeth and supporting structures; R05.9 Cough, unspecified; J02.9 Acute pharyngitis, unspecified; Z03.818 Encounter for observation for suspected exposure to other biological agents ruled out
CPT/HCPCS: 0241U; 87651; 96372; 99284; J1885

== ENCOUNTER 2025-05-07 00:41 | Emergency (ER) | payer OTHER, SELFPAY ==
[2025-05-07 00:43] VITALS: PULSE 82; RESP 16; TEMP 36.6; O2SAT 100; BMI 27.4
--- NOTE | 2025-05-07 00:52 | PC.NURSE ---
labs ordered per Vreonica DESOUZA recommendation.
--- NOTE | 2025-05-07 01:00 | PC.NURSE ---
patient seen lay herself down in waiting room having seizure like activity. pt opens eyes and looks at this RN and continued activity. pt responds to painful stimuli. dad assisted pt to wheelchair. broker in charge made aware and states to bring pt to room 21. while transporting pt starts yelling at staff d/t pain stating i'm in pain whats wrong with you people. pt placed in stretcher in rm 21 and care to primary RN Hope. providers aware of above.
[2025-05-07 01:52] VITALS: BP 123/77; PULSE 79; RESP 16; TEMP 37; O2SAT 100
--- NOTE | 2025-05-07 01:53 | ED_ITS ---
HPI - General Adult General Chief complaint: Dental/Oral Stated complaint: severe mouth pain, right arm numbness Time Seen by Provider: 05/07/25 01:13 Source: patient and family (patient's parents) Mode of arrival: ambulatory Limitations: no limitations History of Present Illness ED Provider: Veronica Mchugh PA-C HPI narrative: Patient is a 30 year old assigned female at with a history of seizure disorder, tourette syndrome, anemia, anxiety, and recent right lower tooth removal, presenting to the emergency department today with right lower dental pain where her removal occurred. Patient states that she had her tooth removed and was started on antibiotics and pain medication but the pain continues. Patient denies any dizziness, lightheadedness, abdominal pain, nausea, vomiting, fever, chills, blurry vision, double vision, loss of vision, chest pain, difficulty breathing, shortness of breath, back pain, night sweats, pain with urination, increased urinary frequency, increased urinary urgency, blood in her urine or stool, syncope or a near syncopal episode, recent trauma or falls, bowel incontinence, bladder incontinence, or any other complaints at this time. Related Data Previous Rx's ?Medication ?Instructions ?Recorded citalopram 10 mg tablet 15 mg (1.5 x 10 mg) PO DAILY 90 05/03/24 days #135 tabs amoxicillin 875 mg-potassium 1 tab PO Q12H #19 tabs clavulanate 125 mg tablet ketorolac 10 mg tablet 10 mg PO Q6H PRN pain #20 ta bs 05/02/25 oxycodone 5 mg tablet 5 mg PO Q8H PRN breakthrough pain 05/07/25 2 days #5 tabs Allergies Allergy/AdvReac Type Severity Reaction Status Date / Time Anesthetics - Amide Type - Allergy Severe Seizure Verified 05/07/25 00:46 Select A latex (LATEX) Allergy Mild RASH Verified 05/07/25 00:46 levetiracetam (From Keppra) Allergy Chest Pain Verified 05/07/25 00:46 From [facility] Allergy Unknown SEIZURES Uncoded 05/07/25 00:46 onion Allergy Unknown f Uncoded 05/07/25 00:46 Review of Systems 2 Constitutional: Constitutional: Reports no additional constitutional complaints, Denies chills, Denies fever(s) and Denies night sweats Eyes: Eyes: Reports no additional eye complaints, Denies blurry vision, Denies change in vision, Denies diplopia, Denies eye discharge, Denies loss of vision and Denies eye pain ENT: Denies dizziness Comments: right lower dental pain Cardiovascular: Cardiovascular: Reports no additional cardiovascular complaints, Denies chest pain, Denies lightheadedness, Denies Loss of Consciousness and Denies dyspnea Respiratory: Respiratory: Reports no additional respiratory complaints and Denies dyspnea Gastrointestinal: Gastrointestinal: Reports no additional gastrointestinal complaints, Denies abdominal pain, Denies melena, Denies hematochezia, Denies change in bowel habits and Denies change in stool character Genitourinary: Genitourinary: Denies hematuria, Denies urinary frequency, Denies dysuria, Denies urinary incontinence, Denies urinary hesitancy and Denies urinary urgency Musculoskeletal: Musculoskeletal: Reports no additional musculoskeletal complaints, Denies numbness and Denies tingling Neurologic: Denies dizziness, Denies loss of vision, Denies numbness and Denies tingling Psychiatric: Psychiatric: Reports no additional psychiatric complaints Endocrine: Endocrine: Reports no additional endocrine complaints Hematologic/Lymphatic: Hematologic/Lymphatic: Reports no additional hematologic/lymphatic complaints Allergic/Immunologic: Allergic/Immunologic: Reports no additional allergic/immunologic complaints PMFSH Past Medical History Attestation statement: The following information was validated with the patient. (patient's parents validated all information) Source: old records reviewed, obtained from family (patient's parents provided additional history and confirmed the history provided by the patient.) and nursing notes reviewed Medical History Seizures Abnormal uterine bleeding Family planning state Otalgia of right ear Sphii-yin-npsmk fetus, third trimester Encounter for suspected problem with growth, ruled out Encounter for supervision of normal in third trimester Rh negative state in antepartum period Depression affecting Fatigue during Encounter for supervision of normal in second trimester Cerumen debris on tympanic membrane of both ears Supervision of normal first Positive urine test COVID-19 Anxiety Tourettes syndrome Anemia Surgical History No pertinent past surgical history Family History Family History Father No problems noted. Mother No problems noted. Maternal Grandmother Diabetes mellitus Maternal Grandfather Diabetes mellitus Paternal Grandmother Diabetes mellitus Paternal Grandfather No problems noted. Social History Social History Household Members: Family Housing: House Are you a primary rn patient care to a significant other at home: No Do you presently have visiting nurse or other home services: No Alcohol intake: unknown Patient Tobacco Use Status: Never used Tobacco Smoked in Last 30 Days: No e-Cigarette/Vaping Use: Never Used Use of substances other than those prescribed or required for medical reasons: No Agree to transfusion: Yes Advance Directives: No Advance Directives Information Provided: No Do you have a plan to hurt others: No Plan Patient : No service: No Current occupational status: employed Current occupation: [employer]- Cognitive needs: No Hearing needs: No Vision needs: No Physical Exam ED Vital Signs: Vital Signs - 24 hr 05/07/25 00:43 05/07/25 01:52 05/07/25 03:59 Temperature 98 F 98.6 F 98.6 F Pulse Rate 82 79 79 Respiratory Rate 16 16 16 Blood Pressure 123/77 123/77 Pulse Oximetry 100 100 100 Oxygen Delivery Method Room Air BMI result Body Mass Index 27.4 Const General: cooperative, no acute distress, alert and awake Nutritional Appearance: well nourished Orientation/consciousness: patient oriented x3 HENMT Head: Yes normal to inspection and Yes atraumatic Ears: hearing grossly normal bilaterally and external ears normal General nose exam: Normal external nose present, no nasal discharge noted and no epistaxis Face and sinus: Yes normal facial exam, No abrasion and No laceration Mouth: Normal oral and palatal mucosa present, no drooling and no muffled voice Eyes General: appearance normal, both eyes and all related structures Periorbital: periorbital findings normal Eyelids: Yes eyelids normal Conjunctivae: conjunctivae normal Pupils: Equal, round and reactive pupils present EOM: EOMs intact bilaterally Neck Neck: Yes normal visual inspection, Yes full ROM and Yes no lymphadenopathy Resp Effort & Inspection: normal respiratory effort and able to speak in complete sentences Neuro General: patient oriented x3, moves all extremities and CN's II-XI intact bilaterally Cranial nerves: Yes Equal, round and reactive pupils present Cognition (Neuro): normal cognition Extrem General: Yes normal to inspection, Yes full ROM and Yes capillary refill normal Psych Appearance: grossly normal Mental Status: mental status grossly normal Affect: normal affect Attitude: cooperative Thought process: Normal thought process present Thought content: Normal thought content present Insight: Good insight present (Psych) Medications Administered Discontinued Medications Generic Name Dose Route Start Last Admin Trade Name Radha PRN Reason Stop Dose Admin Diazepam 5 mg 05/07/25 01:17 05/07/25 02:04 Diazepam 10 Mg/2 Ml Cartridge IVPUSH 05/07/25 01:18 5 mg STAT STA Administration Sodium Chloride 1,000 mls @ 999 mls/hr 05/07/25 01:30 05/07/25 02:03 Ns IV 05/07/25 02:30 999 mls/hr .Q1H1M OSBALDO Administration Oxycodone HCl 10 mg 05/07/25 02:18 05/07/25 02:22 Oxycodone Hcl Immed Release 5 Mg Tablet PO 05/07/25 02:19 10 mg ONCE ONE Administration Medical Decision Making Medical Decision Making [facility] Narrative: Patient is a 30 year old assigned female at with a history of seizure disorder, tourette syndrome, anemia, anxiety, and recent right lower tooth removal, presenting to the emergency department today with right lower dental pain where her removal occurred. Patient's physical exam was unremarkable. Patient's blood work was unremarkable. I explained my physical exam findings as well as all test results to the patient and the patient's parents. I answered all questions asked by the patient and the patient's parents. Patient received valium and oxycodone which, upon re-evaluation, she stated it helped her symptoms significantly. I stressed the importance of the patient taking her medication as directed (either prescribed or as the over the counter packaging recommends). I stressed the importance of the patient following up with her primary care provider and her dentist. I stressed the importance of the patient returning to the emergency department immediately if her symptoms were to worsen or if she were to develop any dizziness, shortness of breath, difficulty breathing, chest pain, blurry vision, loss of vision, nausea, vomiting, abdominal pain, fever, chills, back pain, or any other complaints. Patient and the patient's parents verbalized agreement and understanding with this treatment plan and discharge. Differential Diagnosis Differential Diagnoses: The differential diagnosis associated with the presentation includes Dental infection Dental pain Admission/Observation Consideration of admission/observation: Escalation of care including admission/observation considered Patient would have been admitted to the hospital had her work up had any findings where hospital admission was appropriate and her clinical presentation warranted hospital admission. Lab Data [facility] Lab Attestation statement: I reviewed the patient's lab results. My interpretation of these results are in the MDM Rationale portion of this note. 05/07/25 02:00 05/07/25 02:00 Labs: Lab Results 05/07/25 Range/Units 02:00 WBC 6.6 (4.8-10.8) X10*3/uL RBC 4.38 (4.20-5.50) X10*6/uL Hgb 12.3 (12.0-16.0) g/dl Hct 36.7 L (37.0-47.0) % MCV 83.8 (80.0-98.0) fL MCH 28.1 (27.0-33.0) pg MCHC 33.5 (31.0-35.0) g/dl RDW 13.5 (11.0-16.0) % Plt Count 256 (160-400) X10*3/uL MPV 10.3 (9.4-12.3) fL Immature Gran % (Auto) 0.3 (0.0-0.4) % Neut % (Auto) 43.0 L (45-73) % Lymph % (Auto) 46.7 H (20-40) % Gilliam % (Auto) 6.2 (2-11) % Eos % (Auto) 3.2 (0-4) % Baso % (Auto) 0.6 (0-2) % Lymph # (Auto) 3.1 (1.2-4.9) X10*3/uL Gilliam # (Auto) 0.4 (0.1-1.2) X10*3/uL Eos # (Auto) 0.2 (0.0-0.4) X10*3/uL Baso # (Auto) 0.0 (0.0-0.2) X10*3/uL Abs Immat Gran (auto) 0.02 (0.00-0.03) X10*3/uL Absolute Neuts (auto) 2.8 (2.0-8.3) x10*3/uL Absolute Nucleated RBC 0.020 H (0.0-0.012) X10*3/uL Nucleated RBC % (auto) 0.3 H (0.0-0.2) /100WBC Smear Tech's Comments VERIFIED ESR 16 (0-20) MM/HR Sodium 142 (135-145) mmol/L Potassium 3.8 (3.3-5.1) mmol/L Chloride 108 (96-108) mmol/L Carbon Dioxide 23 (22-29) mmol/L Anion Gap 15 (12-20) BUN 15 (9-16) mg/dL Creatinine 0.55 (0.5-1.4) mg/dL Estim Creat Clear Calc 143.0 Estimated GFR > 60 Random Glucose 94 (60-115) mg/dL Calcium 9.1 (8.4-10.2) mg/dL Total Bilirubin 0.2 (0.0-1.0) mg/dL AST 20 (5-31) U/L ALT 10 (0-31) U/L Alkaline Phosphatase 59 (39-117) U/L C-Reactive Protein 0.58 H (< or = 0.50) mg/dL Total Protein 6.9 (6.5-8.0) g/dL Albumin 4.1 (3.5-5.0) g/dL Beta HCG, Quant < 2 mIU/mL Independent Historian Clinical information obtained from an independent historian. History obtained from or confirmed by: Parent (patient's parents provided additional history and confirmed the history provided by the patient.) Prescription Management I considered prescription management with: Pain Medication (patient prescribed pain medication) and Antibiotic (patient already taking antibiotic - recommended she continue it) Critical Care Time Critical Care Time Critical Care Time: Yes Total Critical Care Time: 32 Attestation: I spent 32 minutes of Critical Care Time with this patient. This does not include time spent on separately reported billable procedures. Discharge Plan Discharge Clinical Impression: Pain, dental Patient Disposition: Home, Self-Care Instructions: Narcotic Safety (ED), Toothache (ED) Additional Instructions: Continue taking your antibiotic as prescribed from the dentist. Take tylenol and ibuprofen over the counter as directed for pain. I have prescribed you a small amount of oxycodone for break through pain only (pain that persists even after you've taken tylenol + ibuprofen). Follow up with your primary care provider. Return to the emergency department immediately if your symptoms worsen or if you develop any numbness, tingling, dizziness, shortness of breath, difficulty breathing, chest pain, blurry vision, loss of vision, nausea, vomiting, abdominal pain, fever, chills, back pain, or any other complaints. Please see the information below about our Patient Portal. If you are not yet enrolled in the [facility] Patient Portal, you will receive an enrollment email invitation following your visit to any [facility] setting. You may also self-enroll in the Patient Portal by visiting our website: [email or web address] The following information is required to access the Patient Portal: - Your [facility] Medical Record Number - Your personal home email address (must match what is in your electronic medical record, Registration staff can assist with this) - Name - Date of Capabilities of the Patient Portal: - Message some providers - View upcoming appointments - Access your health summary, medical history, and visit history - View current conditions and allergies - View procedure and lab results - View your medications, including guidelines, side effects, and precautions - Complete pre-appointment questionnaires requested by your provider - Ready summary reports of your office visits and procedures To access the Patient Portal Mobile [employer], follow these directions: - Search [employer] in the [employer] Store or [employer] Store - Download the [employer] - Search for [facility] - Enter your login/password Prescriptions: New oxycodone 5 mg tablet 5 mg PO Q8H PRN (Reason: breakthrough pain) 2 Days Qty: 5 0RF Rx Instructions: Partial Fill upon patient request. No Action amoxicillin-pot clavulanate 875-125 mg tablet 1 tab PO Q12H Qty: 19 0RF ketorolac 10 mg tablet 10 mg PO Q6H PRN (Reason: pain) Qty: 20 0RF Rx Instructions: maximum total duration of 5 days from all oral, intranasal, or parenteral formulations. The patient received an intramuscular dose of Toradol here in the emergency room citalopram 10 mg tablet 15 mg PO DAILY 90 Days Qty: 135 3RF Rx Instructions: 15 mg PO daily; Referrals: Esa Dorado PA-C [Primary Care Provider, Internal Medicine] Interventions: ED Discharge Assessment Last Done: 05/07/25 03:59 Discharge Date/Time: 05/07/25 03:59 Print Language: Icelandic
[2025-05-07] MEDS: 0.9 % Sodium Chloride 1,000 ML 999 ML IV (02:03)
[2025-05-07] MEDS: diazePAM 10 MG/2 ML CARTRIDGE 5 MG IVPUSH (02:04)
[2025-05-07 02:15] LABS: Basophils Percent Auto 0.6 % (0-2); Eosinophils Absolute Auto 0.2 X10*3/uL (0.0-0.4); Eosinophils Percent Auto 3.2 % (0-4); Hematocrit 36.7 % (37.0-47.0); Hemoglobin 12.3 g/dl (12.0-16.0); Imm Gran Abs Auto 0.02 X10*3/uL (0.00-0.03); Imm Gran Pct Auto 0.3 % (0.0-0.4); Lymphocytes Absolute Auto 3.1 X10*3/uL (1.2-4.9); Lymphocytes Percent Auto 46.7 % (20-40); MANUAL DIFF FLAG SCAN; Mean Corpuscular HGB Conc 33.5 g/dl (31.0-35.0); Mean Corpuscular Hemoglobin 28.1 pg (27.0-33.0); Mean Corpuscular Volume 83.8 fL (80.0-98.0); Mean Platelet Volume 10.3 fL (9.4-12.3); Monocytes Absolute Auto 0.4 X10*3/uL (0.1-1.2); Monocytes Percent Auto 6.2 % (2-11); NRBC Pct Auto 0.3 /100WBC (0.0-0.2); Neutrophils Absolute Auto 2.8 x10*3/uL (2.0-8.3); Platelet Count 256 X10*3/uL (160-400); Red Blood Count 4.38 X10*6/uL (4.20-5.50); Red Cell Distribution Width 13.5 % (11.0-16.0); SCAN SMEAR FLAG 1; White Blood Count 6.6 X10*3/uL (4.8-10.8)
[2025-05-07 02:21] LABS: C Reactive Protein 0.58 mg/dL (< or = 0.50)
[2025-05-07] MEDS: oxyCODONE HCl Immed Release 5 MG TABLET 10 MG PO (02:22)
[2025-05-07 02:42] LABS: Erythrocyte Sedimentation Rate 16 MM/HR (0-20)
[2025-05-07 02:50] LABS: Alanine Aminotransferase 10 U/L (0-31); Albumin Level 4.1 g/dL (3.5-5.0); Alkaline Phosphatase 59 U/L (39-117); Anion Gap 15 (12-20); Aspartate Amino Transferase 20 U/L (5-31); Bilirubin Total 0.2 mg/dL (0.0-1.0); Blood Urea Nitrogen 15 mg/dL (9-16); Calcium 9.1 mg/dL (8.4-10.2); Carbon Dioxide 23 mmol/L (22-29); Chloride 108 mmol/L (96-108); Estimated Glomerular Filt Rate > 60; Glucose Random 94 mg/dL (60-115); HCG Quantitative < 2 mIU/mL; Potassium 3.8 mmol/L (3.3-5.1); Sodium 142 mmol/L (135-145); Total Protein 6.9 g/dL (6.5-8.0)
[2025-05-07 02:54] LABS: SLIDE REVIEW VERIFIED
[2025-05-07 03:59] VITALS: BP 123/77; PULSE 79; RESP 16; TEMP 37; O2SAT 100
== END 2025-05-07 03:59 | disposition home or self-care (01) ==
PROVIDERS: Physician Assistant Medical; Emergency Provider Internal Medicine; PCP Physician Assistant
DX: K08.89 Other specified disorders of teeth and supporting structures (principal); G89.18 Other acute postprocedural pain; Z98.818 Other dental procedure status; D64.9 Anemia, unspecified; F41.9 Anxiety disorder, unspecified; F95.2 Tourette's disorder; R56.9 Unspecified convulsions; Z79.899 Other long term (current) drug therapy
CPT/HCPCS: 36415; 80053; 84702; 85025; 85652; 86140; 96361; 96374; 99284; 99291; J3360

== ENCOUNTER 2025-09-09 11:43 | Outpatient (AMB) | payer OTHER, SELFPAY ==
[2025-09-09 11:46] VITALS: BP 112/70; PULSE 104; TEMP 36.9; O2SAT 99; BMI 28.5
--- NOTE | 2025-09-09 11:46 | AM.OFFWIN_ITS ---
Intake Vital Signs 09/09/25 11:46 Height 5 ft 3 in Weight 161 lb BMI 28.5 BP 112/70 Blood Pressure Location Lt brachial Position Sitting Pulse 104 H Pulse Source Pulse Oximeter Temp 98.4 F Temp Source Oral Pulse Oximetry (%) 99 Oxygen Delivery Method Room Air Intake Visit Reasons: EP-migraine, lt ear pain, dizziness, confursion Intake Note: pt presents wtih migrained, LT ear pain, dizziness for about a week and new onset of confusion for a few days . pt reports pain to wisdom teeth on LT side Patient Tobacco Use Status: Never used Tobacco Allergies Anesthetics - Amide Type - Select A Allergy (Severe, Verified 09/09/25 11:47) Seizure latex (LATEX) Allergy (Mild, Verified 09/09/25 11:47) RASH levetiracetam (From Keppra) Allergy (Verified 09/09/25 11:47) Chest Pain From [facility] Allergy (Unknown, Uncoded 05/07/25 00:46) SEIZURES onion Allergy (Unknown, Uncoded 05/07/25 00:46) f Medication List - Last Reconciled 09/09/25 by Adrianna Hinkle MD citalopram 15 mg (1.5 x 10 mg) PO DAILY 90 days ibuprofen 800 mg PO TID PRN Do you need a note to return to daycare/school/sports/work: No HPI HPI Comments History of Present Illness Details History of Present Illness The patient is a 30-year-old female with a PMG of seizures and tourettes syndrome presenting with tooth pain and headaches. Migraine: - The patient reports experiencing heada ches for approximately one week. - The migraines occur daily and are asso ciated with her wisdom tooth pain. - she went to a different walk-in on and was prescribed clindamycin for her tooth pain - she had difficulty tolerating the clin damycin due to nausea and altered taste and stopped taking the medication after a few days - Ibuprofen provides temporary relief, b ut headaches return once medicaion wears off. Took ibuprofen earlier today. Headache currently 02/24. - She has been taking ibuprofen once xenia ly - There is no mention of associated feve r or chills, but she occasionally experiences nausea. - The patient has a history of seizures but has not experienced a recent episode. - She had an incident where she felt lig htheaded yesterday. Denies dizziness or vomiting - Denies any blurring of vision, spots, or halos Memory Impairment: - The patient reports worsening memory i ssues, with foggy recollection and forgetfulness over the past year. - She struggles to remember tasks - States she was seeing her PCP for this and has - Denies confusion Review of Systems - General: Negative for fevers or chills - Neurological: Reports migraines, memor y impairment, and a prior history of seizures. Reports lightheadedness. Denies Dizziness - HEENT: Reports wisdom tooth pain, aj es visual spots or halos. - Gastrointestinal: Reports nausea somet imes; denies vomiting. - Cardiac: Denies chest pain or shortnes s of breath - Musculoskeletal: Denies any history of neck pain Physical Exam General Appearance: Normal appearance, well developed. No acute distress Head: Normocephalic, atraumatic EENT: PEERLA. EOM intact. Left lower wisdom tooth causing crowding. No significant erythema or inflammation of gums noted. No abscess visualized. Pulmonary: No respiratory distress. Speaking in full sentences Musculoskeletal: Moving all extremities spontaneously and against gravity Mental Status: Alert and Oriented x 3. CN 2-12 tested and intact. Ambulating well Psychiatric: Normal mood. Normal affect. [facility] Medical History Seizures Abnormal uterine bleeding Family planning state Otalgia of right ear [id number]-[id number] fetus, third trimester Encounter for suspected problem with growth, ruled out Encounter for supervision of normal in third trimester Rh negative state in antepartum period Depression affecting Fatigue during Encounter for supervision of normal in second trimester Cerumen debris on tympanic membrane of both ears Supervision of normal first Positive urine test COVID-19 Anxiety Tourettes syndrome Anemia Surgical History No pertinent past surgical history Family History Father No problems noted. Mother No problems noted. Maternal Grandmother Diabetes mellitus Maternal Grandfather Diabetes mellitus Paternal Grandmother Diabetes mellitus Paternal Grandfather No problems noted. Social History Household Members: Family Both parents involved: Yes Caregiver staying overnight: No Housing: House Are you a primary day care center director to a significant other at home: No Do you presently have visiting nurse or other home services: No 75 years or older and lives alone: No Alcohol intake: unknown Patient Tobacco Use Status: Never used Tobacco e-Cigarette/Vaping Use: Never Used Agree to transfusion: Yes service: No Current occupational status: employed Current occupation: [employer]- Cognitive needs: No Hearing needs: No Vision needs: No Female Reproductive History Menstrual Age of Menarche: 15 Physical Exam Vital Signs: Last Vital Signs Temp 98.4 F 09/09/25 11:46 Pulse 104 H 09/09/25 11:46 BP 112/70 09/09/25 11:46 Pulse Ox 99 09/09/25 11:46 Oxygen Delivery Method Room Air 09/09/25 11:46 BMI result Body Mass Index 28.5 Assessment & Plan Assessment & Plan (1) Pain, dental: Code(s): K08.89 - Other specified disorders of teeth and supporting structures (2) Frequent headaches: Code(s): R51.9 - Headache, unspecified (3) Memory changes: Code(s): R41.3 - Other amnesia Plan - No neurological deficits noted on exam - Headaches likely worsened by wisdom tooth pain. Continue ibuprofen 800 mg every 8 hours as needed with food. - Recommend extraction of the wisdom tooth as definite treatment. - Discontinue clindamycin due to adverse effects. - Amoxicillin to cover for infection, to be taken every 8 hours for 5 days, along with food to mitigate gastrointestinal upset. - Patient advised to discuss ongoing memory problems with primary care provider Medications: New amoxicillin 500 mg PO Q8H 15 tabs 0RF 5 days Coding Level of Care Code Est Pt Level 3 (35812) Diagnoses Pain, dental K08.89 Frequent headaches R51.9 Memory changes R41.3
--- OUTSIDE RECORDS SUMMARY | 2025-09-09 14:06 | XMS_ITS | Encounter Summary ---
Author Organization [facility] Address [address] [place] [id number] Phone Care Team Providers Care Manager Nicu Name Role Phone Luisa Hale MD Primary Care Provider Unava ilable Encounter Details Date Type Department Care Team (Late st Contact Info) Description 07/03/2017 Conversion Encounter [facility] - [address] [id number] Social History Tobacco Use Types Packs/Day Years [...] on filedocumented in this encounter Care Teams Manager Nicu Relationship Specialty Start Date End Date Luisa Hale MD PCP - General 06/27/17 documented as of this encounter
--- OUTSIDE RECORDS SUMMARY | 2025-09-09 14:06 | XMS_ITS | Encounter Summary ---
Author Organization [facility] Address [address] [place] [id number] Phone Care Team Providers Care Rehab Nursing Tech Name Role Phone Luisa Hale MD Primary Care Provider Unava ilable Encounter Details Date Type Department Care Team (Late st Contact Info) Description 09/17/2010 Documentation [facility] Family Medicine [address] [place] [address] Family Medicine, Physician [address] [place], [place] [id number] Social History Tobacco Use Types Packs/Day Years [...] on filedocumented in this encounter Care Teams Rehab Nursing Tech Relationship Specialty Start Date End Date Luisa Hale MD PCP - General 06/27/17 documented as of this encounter
--- OUTSIDE RECORDS SUMMARY | 2025-09-09 14:06 | XMS_ITS | Clinical Summary ---
Author Organization [facility] Address [address] [place] [phone] Phone Care Team Providers Care Spreader Name Role Phone Luisa Hale MD Primary [...] 80 08/27/2017 5:36 PM EDT Temperature 37 C (98.6 F) 09/12/2017 4:30 PM EDT Respiratory Rate - [...] 09/18/1998, Additional history exists Influenza Vaccines (#1) 2025 08/09/20, 08/21/2009, 11/16/2003, Additional history exists COVID-19 Vaccine (2024- season) 2025 Hepatitis B Vaccines Completed 1998, 1997, 1997 [...] complete this topic Procedures * Due to [facility] law, this organization might not be sharing sensitive test results. Procedure Name Priority Date/Time Associated Diagnosis Comments CHLAMYDIA AND GONORRHEA, AMPLIFIED Routine 08/27/2017 6:09 PM EDT Unprotected sexual intercourse from Last 3 Months or Most Recently Relevant to Health Maintenance Results * Due to [facility] law, this organization might not be sharing sensitive test results. * Chlamydia and Gonorrhoea, Amplified (08/27/2017 6:09 PM EDT) Chlamydia Trachomatis, DNA Probe NEGATIVE (NEG) [facility] Comment: No Chlamydia Trachomatis RNA detected in this patient's sample (REFERENCE RANGE/NORMAL VALUE: NOT DETECTED) Note: This test uses auxiliary equipment operator- mediated amplification method to detect rRNA from C. Trachomatis URINE GC AMP PROBE NEGATIVE (NEG) [facility] Comment: No Neisseria Gonorrhoeae RNA detected in this patient's sample (REFERENCE RANGE/NORMAL VALUE: NOT DETECTED) NOTE: This test uses auxiliary equipment operator-mediated amplification method to detect rRNA from N.Gonorrhoeae. [...] without risk of sexual abuse. Consult the [facility] if needed. Contact phone number . Therapeutic failure or success cannot be determined with the Aptima Combo2 assay since nucleic acid may persist following appropriate antimicrobial therapy. The Centers for Disease Control and Prevention (CDC) recommends confirmatory retesting using culture or a different nucleic acid amplification test when positive results occur, if indicated. Testing performed or reported by [facility], a Service of [facility], [facility] [address]e [address], [place] [address] CLIA [id number] Donte Weldon MD, PhD, Crystal Slicer Urine (Urine, Clean Catch) 08/27/2017 6:09 PM EDT 08/27/2017 10:20 PM EDT Lashay Rivas MD LAB MICROBIOLOGY - GENERAL O RDERABLES Final Result [facility] from Last 3 Months or Most Recently Relevant to Health Maintenance Insurance [facility] Address: [address] [place] [phone] Care Teams Spreader Relationship Specialty Start Date End Date Luisa Hale MD PCP - General 06/27/17
== END 2025-09-09 12:58 | disposition home or self-care (01) ==
PROVIDERS: PCP Physician Assistant; Visit Provider Family Medicine
DX: K08.89 Other specified disorders of teeth and supporting structures (principal); R51.9 Headache, unspecified; R41.3 Other amnesia

== ENCOUNTER → 2025-09-09 11:43 | Outpatient (BNVA) | payer OTHER, SELFPAY | PROVIDERS: PCP Physician Assistant; Visit Provider Family Medicine | DX: K08.89 Other specified disorders of teeth and supporting structures (principal); R51.9 Headache, unspecified; R41.3 Other amnesia | CPT/HCPCS: 99212 ==